=== PATIENT | female | born 1960 | race Caucasian/White ===

== ENCOUNTER 2016-08-06 16:39 | Emergency (ER) | payer MEDICAID, MEDICARE ==
[~2016-08-06] VITALS: Ht 162.6 cm; Wt 81.6 kg
[2016-08-06] MEDS ORDERED: AMMONIA AROMATIC 15% INHALANT AMPUL. ONE (16:45)
[2016-08-06 17:27] LABS: BASO # 0.1 x10^3/uL (0.0-0.2); BASO % 1 % (0-3); EOS % 2 % (0-3); HEMATOCRIT 35.5 % (36.0-47.0); HEMOGLOBIN 11.9 g/dL (12.0-15.5); LYMPH % 33 % (24-48); MEAN CORPUSCULAR HEMOGLOBIN 30 pg (25-35); MEAN CORPUSCULAR HGB CONC 34 g/dL (31-37); MEAN CORPUSCULAR VOLUME 88 fL (79-100); MONO % 5 % (0-9); NEUT % 59 % (31-73); PLATELET COUNT 161 x10^3/uL (140-400); RED BLOOD COUNT 4.01 x10^6/uL (3.50-5.40); RED CELL DISTRIBUTION WIDTH 14.5 % (11.5-14.5); WHITE BLOOD COUNT 6.2 x10^3/uL (4.0-11.0)
[2016-08-06 17:46] LABS: CALCIUM 9.5 mg/dL (8.5-10.1); GFR 57.6; POTASSIUM 3.6 mmol/L (3.5-5.1)
[2016-08-06 17:52] LABS: ALBUMIN 3.7 g/dL (3.4-5.0); ALBUMIN/GLOBULIN RATIO 1.4 (1.0-1.7); TOTAL BILIRUBIN 0.2 mg/dL (0.2-1.0); TOTAL PROTEIN 6.4 g/dL (6.4-8.2)
[2016-08-06] MEDS ORDERED: ACETAMINOPHEN 325 MG TABLET. PO ONE (18:30)
--- NOTE | 2016-08-06 18:35 | ED.ADGEN ---
Past Medical History Past Medical History: Anxiety, Arthritis, Depression, High Cholesterol, Hypertension, Other Additional Past Medical Histor: psuedo seizures, sleep apnea, PTSD, RLS, esophageal rupture, Past Surgical History: Appendectomy, Cholecystectomy, , Hysterectomy, Tonsillectomy, Other Additional Past Surgical Histo: fundaplication Alcohol Use: None Drug Use: None Adult General Chief Complaint Chief Complaint: SEIZURE HPI HPI Patient is a 56 year old female with history of pseudoseizures, PTSD, anxiety depression and GERD who presents with seizure-like activity. Reportedly, the patient had been attending the of her nephew in the overdose. Patient was very upset and confronted the family members father an argument ensued. At which time, the patient began to have a seizure-like activity ensued. Patient has interrupted staring and shaking spells true which she is awake and can talk. EMS was contacted and witnessed the spells, but patient was given an milligrams of intranasal and 10 mg of IV Versed for an unknown reason. On ED arrival, the patient somnolent with sonorous breathing, but can interrupt breathing pattern to answer questions. Patient was otherwise alert and oriented 3. No report of head injury, oral laceration, bladder incontinence or postictal period. Patient's accompanied at bedside by her spouse release information. He states she is been worked up extensively by a neurologist in does not have a diagnosis of seizures. Patient is currently visiting from out out of town. Review of Systems Review of Systems ROS as per HPI. ROS limited by the patients presentation. Current Medications Current Medications Current Medications Medications (Trade) Dose Ordered Sig/Leatha Start Time Stop Time Status Last Admin Dose Admin Acetaminophen (Tylenol) 650 mg 1X ONCE 08/06/16 18:30 08/06/16 18:31 DC 08/06/16 18:34 650 MG Ammonia (Aromatic Spirit) (Amoply) 1 each STK-MED ONCE 08/06/16 16:45 08/06/16 16:46 DC Allergies Allergies Allergies Coded Allergies Type Severity Reaction Last Updated Verified Estrogens Allergy Severe LOSS OF VISION 08/06/16 Yes Latex, Natural Rubber Allergy Intermediate RASH 08/06/16 Yes amoxicillin Allergy Intermediate RASH/VOMITING 08/06/16 Yes clarithromycin Allergy Intermediate rash 08/06/16 Yes clavulanic acid Allergy Intermediate RASH/VOMITING 08/06/16 Yes levofloxacin Allergy Intermediate rash 08/06/16 Yes morphine Allergy Intermediate rash 08/06/16 Yes paroxetine Allergy Intermediate RASH/VOMITING 08/06/16 Yes iron Adverse Reaction Mild ringing in ears 08/06/16 Yes labetalol Adverse Reaction Mild itching 08/06/16 Yes quinine Adverse Reaction Mild diarrhea 08/06/16 Yes Physical Exam Physical Exam Constitutional: Well developed, well nourished, mildly obtunded, sonorous breathing and some respond to verbal command. HENT: Normocephalic, atraumatic, bilateral external ears normal, oropharynx moist. Eyes: PERRLA, EOMI, conjunctiva normal. Neck: Normal range of motion, no tenderness. Cardiovascular:Heart rate regular rhythm, no murmur. Lungs & Thorax: Bilateral breath sounds clear to auscultation. Abdomen: Bowel sounds normal, soft, no tenderness. Skin: Warm, dry. Back: No tenderness. Neurologic: Alert, alerts to verbal command, to verbal command, normal motor function, normal sensory function, no focal deficits noted. Psychologic: Affect, flat. Current Patient Data Vital Signs Vital Signs Date Time Temp Pulse Resp B/P (MAP) Pulse Ox O2 Delivery O2 Flow Rate FiO2 08/06/16 18:16 92 20 134/67 (89) 95 Room Air 08/06/16 16:54 97.5 97.5 Lab Values Laboratory Tests Test 08/06/16 17:20 White Blood Count 6.2 x10^3/uL (4.0-11.0) Red Blood Count 4.01 x10^6/uL (3.50-5.40) Hemoglobin 11.9 g/dL (12.0-15.5) L Hematocrit 35.5 % (36.0-47.0) L Mean Corpuscular Volume 88 fL (79-100) Mean Corpuscular Hemoglobin 30 pg (25-35) Mean Corpuscular Hemoglobin Concent 34 g/dL (31-37) Red Cell Distribution Width 14.5 % (11.5-14.5) Platelet Count 161 x10^3/uL (140-400) Neutrophils (%) (Auto) 59 % (31-73) Lymphocytes (%) (Auto) 33 % (24-48) Monocytes (%) (Auto) 5 % (0-9) Eosinophils (%) (Auto) 2 % (0-3) Basophils (%) (Auto) 1 % (0-3) Neutrophils # (Auto) 3.7 x10^3uL (1.8-7.7) Lymphocytes # (Auto) 2.0 x10^3/uL (1.0-4.8) Monocytes # (Auto) 0.3 x10^3/uL (0.0-1.1) Eosinophils # (Auto) 0.1 x10^3/uL (0.0-0.7) Basophils # (Auto) 0.1 x10^3/uL (0.0-0.2) Sodium Level 142 mmol/L (136-145) Potassium Level 3.6 mmol/L (3.5-5.1) Chloride Level 105 mmol/L (98-107) Carbon Dioxide Level 22 mmol/L (21-32) Anion Gap 15 (6-14) H Blood Urea Nitrogen 9 mg/dL (7-20) Creatinine 1.0 mg/dL (0.6-1.0) Estimated GFR (Cockcroft-Gault) 57.6 BUN/Creatinine Ratio 9 (6-20) Glucose Level 120 mg/dL (70-99) H Calcium Level 9.5 mg/dL (8.5-10.1) Total Bilirubin 0.2 mg/dL (0.2-1.0) Aspartate Amino Transferase (AST) 20 U/L (15-37) Alanine Aminotransferase (ALT) 19 U/L (14-59) Alkaline Phosphatase 57 U/L (46-116) Total Protein 6.4 g/dL (6.4-8.2) Albumin 3.7 g/dL (3.4-5.0) Albumin/Globulin Ratio 1.4 (1.0-1.7) Laboratory Tests 08/06/16 17:20 Laboratory Tests 08/06/16 17:20 EKG EKG [] Radiology/Procedures Radiology/Procedures [] Course & Med Decision Making Course & Med Decision Making Pertinent Labs and Imaging studies reviewed. (See chart for details) [Patient observed until symptoms improved and effects of Versed wore off. She was instructed to go home and rest and avoid stressful activity. PCP follow-up recommended. Return precautions reviewed.] Dragon Disclaimer Dragon Disclaimer This electronic medical record was generated, in whole or in part, using a voice recognition dictation system. NEW ALVARADO DO Aug 06, 2016 18:35
[2016-08-06 19:44] VITALS: BP 104/62
== END 2016-08-06 19:59 | disposition home or self-care (01) ==
LOC: ER 16:39
DX: R56.9 Unspecified convulsions (principal); E78.00 Pure hypercholesterolemia, unspecified; F43.10 Post-traumatic stress disorder, unspecified; G25.81 Restless legs syndrome; G47.30 Sleep apnea, unspecified; I10 Essential (primary) hypertension; F32.9 Major depressive disorder, single episode, unspecified; M19.90 Unspecified osteoarthritis, unspecified site; F41.9 Anxiety disorder, unspecified; Z90.49 Acquired absence of other specified parts of digestive tract; Z90.710 Acquired absence of both cervix and uterus; Z98.890 Other specified postprocedural states; Z88.8 Allergy status to other drugs, medicaments and biological substances; Z88.1 Allergy status to other antibiotic agents; Z91.040 Latex allergy status; Z88.5 Allergy status to narcotic agent
CPT/HCPCS: 36415; 80053; 85027; 99284

== ENCOUNTER → 2017-01-08 | Day surgery (SDC) | payer MEDICARE ==
[~2017-01-08] MED LIST: IV RINGERS,LACTATED 1000ML 1,000 ML IV; LIDOCAINE 1% PF 2 ML VIAL. ID; ONDANSETRON PF 4 MG/2 ML VIAL. IV; PROCHLORPERAZINE 10 MG/2 ML VIAL. IV; fentaNYL PF VIAL 100 MCG/2 ML VIAL IV
[2017-01-08] MEDS: HYDROcodone/APAP 10/325 1 TAB TABLET PO (08:03)
== END | disposition home or self-care (01) ==
LOC: ENDOS 07:19
DX: K22.2 Esophageal obstruction (principal); E78.00 Pure hypercholesterolemia, unspecified; I10 Essential (primary) hypertension; E66.9 Obesity, unspecified; F41.9 Anxiety disorder, unspecified; F32.9 Major depressive disorder, single episode, unspecified; Z86.73 Personal history of transient ischemic attack (TIA), and cerebral infarction without residual deficits; Z86.69 Personal history of other diseases of the nervous system and sense organs; Z90.49 Acquired absence of other specified parts of digestive tract; Z90.710 Acquired absence of both cervix and uterus; Z87.39 Personal history of other diseases of the musculoskeletal system and connective tissue; Z86.14 Personal history of Methicillin resistant Staphylococcus aureus infection; Z88.6 Allergy status to analgesic agent; Z88.1 Allergy status to other antibiotic agents; Z91.040 Latex allergy status; Z91.048 Other nonmedicinal substance allergy status
CPT/HCPCS: 43760; 99211

== ENCOUNTER 2017-01-22 11:11 | Inpatient (IN) | payer MEDICARE ==
[~2017-01-22] VITALS: Ht 162.6 cm; Wt 76.9 kg
[~2017-01-22 11:11] MED LIST changes: +ALPR0.5T PO; +ASPI-482 PO; +HYDR-2766 PO; -IV RINGERS,LACTATED 1000ML 1,000 ML IV; -LIDOCAINE 1% PF 2 ML VIAL. ID; +LINA290C PO; +LISI10TA2 PO; +METO25TA4 PO; -ONDANSETRON PF 4 MG/2 ML VIAL. IV; +OXYC-328 PO; +PANT40TA3 PO; -PROCHLORPERAZINE 10 MG/2 ML VIAL. IV; +ROPI1TAB PO; +SIMV40TA PO; +SUCR1TAB35 PO; +TRAZ300T2 PO; +VENL150C PO; +VENL75CA PO; +ZOLP10TA PO; -fentaNYL PF VIAL 100 MCG/2 ML VIAL IV
[2017-01-22] MEDS ORDERED: MORPHINE SULFATE 4 MG/ML DISP.SYRIN. IV/SQ PRN (12:00)
[2017-01-22] MEDS ORDERED: PROMETHAZINE 12.5 MG in IV DEXTROSE 5% 50 ML IV PRN (12:00)
[2017-01-22] MEDS ORDERED: IV NORMAL SALINE 1000ML BAG 1,000 ML IV SCH (12:00)
--- NOTE | 2017-01-22 12:10 | PHYS DOC ---
Past Medical History Past Medical History: Anxiety, Arthritis, Depression, High Cholesterol, Hypertension, Other Additional Past Medical Histor: psuedo seizures, sleep apnea, PTSD, RLS, esophageal rupture, Past Surgical History: Appendectomy, Cholecystectomy, , Hysterectomy, Tonsillectomy, Other Additional Past Surgical Histo: fundaplication GASTRIC TUBE Alcohol Use: Rarely Drug Use: None Adult General Chief Complaint Chief Complaint: OTHER COMPLAINTS HPI HPI Patient is a 56 year old female who presents with her PEG tube. She states she has a history gastroparesis and uses a sedimentation rate off the extra fluid. She states Friday night she started getting sharp pains around her PEG tube and radiated up into her chest and went to her back. She states the pain now she is located around her PEG tube site. She states it was replaced about 2 weeks ago at the wrong size and since then material is been leaking around it. She states is tender around the site. Review of Systems Review of Systems Constitutional: Denies fever or chills [] Eyes: Denies change in visual acuity, redness, or eye pain [] HENT: Denies nasal congestion or sore throat [] Respiratory: Denies cough or shortness of breath [] Cardiovascular: No additional information not addressed in HPI [] GI: Positive for abdominal pain, nausea, Denies vomiting, bloody stools or diarrhea [] : Denies dysuria or hematuria [] Musculoskeletal: Denies back pain or joint pain [] Integument: Denies rash or skin lesions [] Neurologic: Denies headache, focal weakness or sensory changes [] Endocrine: Denies polyuria or polydipsia [] All other systems were reviewed and found to be within normal limits, except as documented in this note. Current Medications Current Medications Current Medications Medications (Trade) Dose Ordered Sig/Leatha Start Time Stop Time Status Last Admin Dose Admin Fentanyl Citrate (Fentanyl 2ml Vial) 50 mcg PRN Q1HR PRN 01/22/17 15:00 01/23/17 14:59 Hydromorphone HCl (Dilaudid) 1 mg PRN Q15MIN PRN 01/22/17 13:15 01/23/17 13:14 01/22/17 14:21 1 MG Morphine Sulfate 4 mg PRN Q15MIN PRN 01/22/17 12:00 01/23/17 11:59 UNV Ondansetron HCl (Zofran) 4 mg PRN Q8HRS PRN 01/22/17 15:00 01/23/17 14:59 Promethazine HCl 12.5 mg/Dextrose 50.5 ml @ 151.5 mls/ hr PRN Q6HRS PRN 01/22/17 12:00 01/22/17 12:23 151.5 MLS/HR Sodium Chloride 1,000 ml @ 1,000 mls/hr Q1H 01/22/17 12:00 01/22/17 12:59 DC 01/22/17 12:22 1,000 MLS/HR Allergies Allergies Allergies Coded Allergies Type Severity Reaction Last Updated Verified Estrogens Allergy Severe LOSS OF VISION 08/06/16 Yes Latex, Natural Rubber Allergy Intermediate RASH 08/06/16 Yes clarithromycin Allergy Intermediate rash 08/06/16 Yes levofloxacin Allergy Intermediate rash 08/06/16 Yes morphine Allergy Intermediate rash 08/06/16 Yes paroxetine Allergy Intermediate RASH/VOMITING 08/06/16 Yes amoxicillin Adverse Reaction Intermediate VOMITING 11/08/16 Yes clavulanic acid Adverse Reaction Intermediate VOMITING 11/08/16 Yes iron Adverse Reaction Mild ringing in ears 08/06/16 Yes labetalol Adverse Reaction Mild itching 08/06/16 Yes quinine Adverse Reaction Mild diarrhea 08/06/16 Yes Physical Exam Physical Exam Constitutional: Well developed, well nourished, no acute distress, non-toxic appearance. [] HENT: Normocephalic, atraumatic, bilateral external ears normal, oropharynx moist, no oral exudates, nose normal. [] Eyes: PERRLA, EOMI, conjunctiva normal, no discharge. [] Neck: Normal range of motion, no tenderness, supple, no stridor. [] Cardiovascular:Heart rate regular rhythm, no murmur [] Lungs & Thorax: Bilateral breath sounds clear to auscultation [] Abdomen: Bowel sounds normal, soft, tender palpation around the PEG tube site with mild erythema, no masses, no pulsatile masses. [] Skin: Warm, dry, no erythema, no rash. [] Back: No tenderness, no CVA tenderness. [] Extremities: No tenderness, no cyanosis, no clubbing, ROM intact, no edema. [] Neurologic: Alert and oriented X 3, normal motor function, normal sensory function, no focal deficits noted. [] Psychologic: Affect normal, judgement normal, mood normal. [] Current Patient Data Vital Signs Vital Signs Date Time Temp Pulse Resp B/P (MAP) Pulse Ox O2 Delivery O2 Flow Rate FiO2 01/22/17 14:00 66 121/64 (83) 95 Room Air 01/22/17 11:26 97.8 20 97.8 Lab Values Laboratory Tests Test 01/22/17 11:26 01/22/17 11:55 Urine Collection Type Void Urine Color Yellow Urine Clarity Clear Urine pH 6.0 Urine Specific [place] 1.010 Urine Protein Negative mg/dL (NEG-TRACE) Urine Glucose (UA) Negative mg/dL (NEG) Urine Ketones (Stick) Negative mg/dL (NEG) Urine Blood Negative (NEG) Urine Nitrite Negative (NEG) Urine Bilirubin Negative (NEG) Urine Urobilinogen Dipstick 1.0 mg/dL (0.2 mg/dL) Urine Leukocyte Esterase Moderate (NEG) Urine RBC Occ /HPF (0-2) Urine WBC 11-20 /HPF (0-4) Urine Squamous Epithelial Cells Few /LPF Urine Bacteria Moderate /HPF (0-FEW) Urine Opiates Screen Pos (NEG) Urine Methadone Screen Neg (NEG) Urine Barbiturates Neg (NEG) Urine Phencyclidine Screen Neg (NEG) Urine Amphetamine/Methamphetamine Neg (NEG) Urine Benzodiazepines Screen Pos (NEG) Urine Cocaine Screen Neg (NEG) Urine Cannabinoids Screen Pos (NEG) Urine Ethyl Alcohol Neg (NEG) White Blood Count 8.8 x10^3/uL (4.0-11.0) Red Blood Count 4.06 x10^6/uL (3.50-5.40) Hemoglobin 11.9 g/dL (12.0-15.5) L Hematocrit 35.3 % (36.0-47.0) L Mean Corpuscular Volume 87 fL (79-100) Mean Corpuscular Hemoglobin 29 pg (25-35) Mean Corpuscular Hemoglobin Concent 34 g/dL (31-37) Red Cell Distribution Width 13.8 % (11.5-14.5) Platelet Count 171 x10^3/uL (140-400) Neutrophils (%) (Auto) 71 % (31-73) Lymphocytes (%) (Auto) 22 % (24-48) L Monocytes (%) (Auto) 5 % (0-9) Eosinophils (%) (Auto) 1 % (0-3) Basophils (%) (Auto) 1 % (0-3) Neutrophils # (Auto) 6.3 x10^3uL (1.8-7.7) Lymphocytes # (Auto) 1.9 x10^3/uL (1.0-4.8) Monocytes # (Auto) 0.5 x10^3/uL (0.0-1.1) Eosinophils # (Auto) 0.1 x10^3/uL (0.0-0.7) Basophils # (Auto) 0.0 x10^3/uL (0.0-0.2) Prothrombin Time 12.6 SEC (11.7-14.0) Prothrombin Time INR 1.0 (0.8-1.1) PTT 20 SEC (24-38) L Sodium Level 140 mmol/L (136-145) Potassium Level 3.7 mmol/L (3.5-5.1) Chloride Level 104 mmol/L (98-107) Carbon Dioxide Level 28 mmol/L (21-32) Anion Gap 8 (6-14) Blood Urea Nitrogen 10 mg/dL (7-20) Creatinine 0.6 mg/dL (0.6-1.0) Estimated GFR (Cockcroft-Gault) 103.8 Glucose Level 110 mg/dL (70-99) H Calcium Level 9.2 mg/dL (8.5-10.1) Total Bilirubin 0.3 mg/dL (0.2-1.0) Direct Bilirubin 0.1 mg/dL (0.0-0.2) Aspartate Amino Transferase (AST) 19 U/L (15-37) Alanine Aminotransferase (ALT) 16 U/L (14-59) Alkaline Phosphatase 70 U/L (46-116) Creatine Kinase 69 U/L (26-192) Creatine Kinase MB (Mass) < 0.5 ng/mL (0.0-3.6) Creatine Kinase MB Relative Index % (0-4) Troponin I Quantitative < 0.017 ng/mL (0.000-0.055) Total Protein 7.1 g/dL (6.4-8.2) Albumin 3.3 g/dL (3.4-5.0) L Lipase 74 U/L (73-393) Laboratory Tests 01/22/17 11:55 Laboratory Tests 01/22/17 11:55 EKG EKG EKG shows sinus rhythm with rate of [address] elevations or concerning T-wave inversions, normal axis, QTC 467 will sinus, as interpreted by me. Radiology/Procedures Radiology/Procedures Acute abdominal series does not show any acute abnormalities as read per radiology. Impressions: Abdominal pain around PEG tube Abdominal pain that radiated up into chest-resolved Course & Med Decision Making Course & Med Decision Making Pertinent Labs and Imaging studies reviewed. (See chart for details) She had pain that radiated up into her back that started in her abdomen. This pain has resolved. On her acute abdominal series, EKG and her labs did not show any acute abnormality's. I spoke with Camille with Dr. Maravilla regarding the need that her PEG tube will likely need to be changed and she's having pain around this. She being admitted to the hospitalist this time in stable condition. Dragon Disclaimer Dragon Disclaimer This electronic medical record was generated, in whole or in part, using a voice recognition dictation system. Departure Departure Impression: Primary Impression: Abdominal pain Disposition: ADMITTED INPATIENT Admitting Physician: Other Condition: STABLE Referrals: NON,STAFF (PCP) MELLO RICE MD Jan 22, 2017 12:10
[2017-01-22 12:11] LABS: BASO % 1 % (0-3); EOS % 1 % (0-3); HEMATOCRIT 35.3 % (36.0-47.0); HEMOGLOBIN 11.9 g/dL (12.0-15.5); LYMPH # 1.9 x10^3/uL (1.0-4.8); LYMPH % 22 % (24-48); MEAN CORPUSCULAR HEMOGLOBIN 29 pg (25-35); MEAN CORPUSCULAR HGB CONC 34 g/dL (31-37); MEAN CORPUSCULAR VOLUME 87 fL (79-100); MONO % 5 % (0-9); NEUT % 71 % (31-73); PLATELET COUNT 171 x10^3/uL (140-400); RED BLOOD COUNT 4.06 x10^6/uL (3.50-5.40); RED CELL DISTRIBUTION WIDTH 13.8 % (11.5-14.5); WHITE BLOOD COUNT 8.8 x10^3/uL (4.0-11.0)
[2017-01-22 12:13] LABS: BILIRUBIN,URINE NEGATIVE (NEG); GLUCOSE,URINE NEGATIVE (NEG); NITRITE,URINE NEGATIVE (NEG); PROTEIN,URINE NEGATIVE (NEG-TRACE)
[2017-01-22 12:20] LABS: PROTHROMBIN TIME PATIENT 12.6 SEC (11.7-14.0)
[2017-01-22 12:23] LABS: CALCIUM 9.2 mg/dL (8.5-10.1); CREATININE 0.6 mg/dL (0.6-1.0); GFR 103.8; POTASSIUM 3.7 mmol/L (3.5-5.1)
[2017-01-22 12:24] LABS: BACTERIA,URINE MODERATE /HPF (0-FEW); RBC,URINE OCC /HPF (0-2); SQUAMOUS EPITHELIAL CELL,UR FEW /LPF
[2017-01-22 12:27] LABS: BARBITURATES NEG (NEG); BENZODIAZEPINES POS (NEG); CANNABINOIDS POS (NEG); COCAINE NEG (NEG); METHADONE NEG (NEG); OPIATES POS (NEG); PHENCYCLIDINE NEG (NEG)
[2017-01-22 12:29] LABS: ALBUMIN 3.3 g/dL (3.4-5.0); DIRECT BILIRUBIN 0.1 mg/dL (0.0-0.2); TOTAL BILIRUBIN 0.3 mg/dL (0.2-1.0); TOTAL PROTEIN 7.1 g/dL (6.4-8.2)
[2017-01-22] MEDS ORDERED: fentaNYL PF VIAL 100 MCG/2 ML VIAL IV PRN ×2 (12:30→15:00)
[2017-01-22 12:34] LABS: CKMB MASS < 0.5 ng/mL (0.0-3.6); CREATINE KINASE 69 U/L (26-192)
--- NOTE | 2017-01-22 12:44 | EKG ---
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
[2017-01-22] MEDS: HYDROmorphone 2 MG/ML VIAL IV/SQ PRN ×3 (13:28→15:02)
--- NOTE | 2017-01-22 15:46 | RAD ---
Abdomen series with chest, 3 views, 01/22/2017: History: Abdominal pain A tube overlying the left upper quadrant is reportedly a gastrostomy tube. Gas is present in large and small bowel in a nonspecific pattern. No free air is seen in the abdomen. There is no evidence of organomegaly. Surgical clips are present in the abdomen and pelvis. There are scattered degenerative changes in the spine. There is mild chronic elevation of the right hemidiaphragm. The heart size and pulmonary vascularity are normal. No pulmonary infiltrates are seen. There is no evidence of pleural fluid. A right shoulder prosthesis is in place. IMPRESSION: No acute abdominal abnormality is detected.
--- NOTE | 2017-01-22 15:47 | PDOC2 ---
GI CONSULT Reason For Consult: Abd pain HPI: HPI: 56 y/o female w/ chronic GI issues. H/o abd pain, n/v, and OIC. S/p Adrianne fundoplication in 2008 (for uncontrolled reflux, Razo's esophagus , and hiatal hernia), then gastric perforation s/p repair/pyloroplasty in 2010 PEG placed in 2014 for decompression. Says usually has 20Fr w/ 20mm balloon. PEG replaced by Dr. Tian on 01/08/17; size was 20Fr w/ 6mm balloon. Since then has had issues w/ food/drink leaking around PEG site. Currently takes Marinol, Protonix BID, Linzess 290mcg QD. (Note Reglan, Carafate, and Zofran ineffective.) Fibromyalgia on hydrocodone QID + Percocet QHS. Last EGD and colonoscopy 04/2016 at [facility]: EGD - evidence of fundoplication, pyloroplasty, PEG, no abnormality. Colon - two cecal polyps ( no path available). Additional 'scopes per GI consult 11/08/16. Had GES in 12/2016 w/ T1/2 time 47 min. We saw her in the hospital in 10/2016; at that time she had concern for pinworm infection around her PEG w/ pain and drainage. CT was unremarkable. Was seen by ID, no treatment indicated. Since then, has been treated w/ atbx (says 4 rounds, last Bactrim - finished 2 weeks ago) for MRSA infection (can document + culture) related to PEG site. Feels better on atbx. Since Friday, has had terrible pain around PEG w/ green drainage. Says never had pain like this before. Worse w/ movement and deep breathing. Fever up to 103 at home w/ chills and sweats, has noted a "knot" under PEG. Ate a [employer] burrito this morning, says some of her coke drained out around PEG. Called our office re: terrible pain, says she was told to come straight to the ER. PMH: PMH: Razo's/GERD, chronic abd pain, IBS, colon polyps, OIC, gastroparesis ( chronic n/v), hemorrhoids anxiety/depression, CVA, fibromyalgia, HTN, HLD, insomnia, OA, REAL, restless leg syndrome Adrianne fundoplication, gastric perforation w/ repair/pyloroplasty, PEG and J tube placement, appendectomy, cholecystectomy, hysterectomy, tonsillectomy, right shoulder replacement, FH: Family History: Cancer, CAD, CVA, Hypertension Social History: Smoke: No ROS: GEN: +fevers +chills +sweats HEENT: Denies blurred vision, sore throat CV: Denies chest pain RESP: Denies shortness of air, cough GI: Per HPI : Denies hematuria, dysuria ENDO: Denies weight changes NEURO: Denies confusion, dizziness MSK: Denies weakness, joint pain/swelling SKIN: Denies jaundice, pruritus Vitals: Vitals: Vital Signs Date Time Temp Pulse Resp B/P (MAP) Pulse Ox O2 Delivery O2 Flow Rate FiO2 01/22/17 14:00 66 121/64 (83) 95 Room Air 01/22/17 11:26 97.8 20 97.8 Labs: Labs: Laboratory Tests Test 01/22/17 11:26 01/22/17 11:55 Urine Collection Type Void Urine Color Yellow Urine Clarity Clear Urine pH 6.0 Urine Specific [place] 1.010 Urine Protein Negative mg/dL (NEG-TRACE) Urine Glucose (UA) Negative mg/dL (NEG) Urine Ketones (Stick) Negative mg/dL (NEG) Urine Blood Negative (NEG) Urine Nitrite Negative (NEG) Urine Bilirubin Negative (NEG) Urine Urobilinogen Dipstick 1.0 mg/dL (0.2 mg/dL) Urine Leukocyte Esterase Moderate (NEG) Urine RBC Occ /HPF (0-2) Urine WBC 11-20 /HPF (0-4) Urine Squamous Epithelial Cells Few /LPF Urine Bacteria Moderate /HPF (0-FEW) Urine Opiates Screen Pos (NEG) Urine Methadone Screen Neg (NEG) Urine Barbiturates Neg (NEG) Urine Phencyclidine Screen Neg (NEG) Urine Amphetamine/Methamphetamine Neg (NEG) Urine Benzodiazepines Screen Pos (NEG) Urine Cocaine Screen Neg (NEG) Urine Cannabinoids Screen Pos (NEG) Urine Ethyl Alcohol Neg (NEG) White Blood Count 8.8 x10^3/uL (4.0-11.0) Red Blood Count 4.06 x10^6/uL (3.50-5.40) Hemoglobin 11.9 g/dL (12.0-15.5) Hematocrit 35.3 % (36.0-47.0) Mean Corpuscular Volume 87 fL (79-100) Mean Corpuscular Hemoglobin 29 pg (25-35) Mean Corpuscular Hemoglobin Concent 34 g/dL (31-37) Red Cell Distribution Width 13.8 % (11.5-14.5) Platelet Count 171 x10^3/uL (140-400) Neutrophils (%) (Auto) 71 % (31-73) Lymphocytes (%) (Auto) 22 % (24-48) Monocytes (%) (Auto) 5 % (0-9) Eosinophils (%) (Auto) 1 % (0-3) Basophils (%) (Auto) 1 % (0-3) Neutrophils # (Auto) 6.3 x10^3uL (1.8-7.7) Lymphocytes # (Auto) 1.9 x10^3/uL (1.0-4.8) Monocytes # (Auto) 0.5 x10^3/uL (0.0-1.1) Eosinophils # (Auto) 0.1 x10^3/uL (0.0-0.7) Basophils # (Auto) 0.0 x10^3/uL (0.0-0.2) Prothrombin Time 12.6 SEC (11.7-14.0) Prothromb Time International Ratio 1.0 (0.8-1.1) Activated Partial Thromboplast Time 20 SEC (24-38) Sodium Level 140 mmol/L (136-145) Potassium Level 3.7 mmol/L (3.5-5.1) Chloride Level 104 mmol/L (98-107) Carbon Dioxide Level 28 mmol/L (21-32) Anion Gap 8 (6-14) Blood Urea Nitrogen 10 mg/dL (7-20) Creatinine 0.6 mg/dL (0.6-1.0) Estimated GFR (Cockcroft-Gault) 103.8 Glucose Level 110 mg/dL (70-99) Calcium Level 9.2 mg/dL (8.5-10.1) Total Bilirubin 0.3 mg/dL (0.2-1.0) Direct Bilirubin 0.1 mg/dL (0.0-0.2) Aspartate Amino Transf (AST/SGOT) 19 U/L (15-37) Alanine Aminotransferase (ALT/SGPT) 16 U/L (14-59) Alkaline Phosphatase 70 U/L (46-116) Creatine Kinase 69 U/L (26-192) Creatine Kinase MB (Mass) < 0.5 ng/mL (0.0-3.6) Creatine Kinase MB Relative Index % (0-4) Troponin I Quantitative < 0.017 ng/mL (0.000-0.055) Total Protein 7.1 g/dL (6.4-8.2) Albumin 3.3 g/dL (3.4-5.0) Lipase 74 U/L (73-393) Allergies: Coded Allergies: Estrogens (Verified Allergy, Severe, LOSS OF VISION, 08/06/16) Latex, Natural Rubber (Verified Allergy, Intermediate, RASH, 08/06/16) clarithromycin (Verified Allergy, Intermediate, rash, 08/06/16) levofloxacin (Verified Allergy, Intermediate, rash, 08/06/16) morphine (Verified Allergy, Intermediate, rash, 08/06/16) paroxetine (Verified Allergy, Intermediate, RASH/VOMITING, 08/06/16) amoxicillin (Verified Adverse Reaction, Intermediate, VOMITING, 11/08/16) clavulanic acid (Verified Adverse Reaction, Intermediate, VOMITING, ) iron (Verified Adverse Reaction, Mild, ringing in ears, 08/06/16) labetalol (Verified Adverse Reaction, Mild, itching, 08/06/16) quinine (Verified Adverse Reaction, Mild, diarrhea, 08/06/16) Medications: Current Medications Medications (Trade) Dose Ordered Sig/Leatha Route PRN Reason Start Time Stop Time Status Last Admin Dose Admin Sodium Chloride 1,000 ml @ 1,000 mls/hr Q1H IV 01/22/17 12:00 01/22/17 12:59 DC 01/22/17 12:22 Promethazine HCl 12.5 mg/Dextrose 50.5 ml @ 151.5 mls/ hr PRN Q6HRS PRN IV NAUSEA/VOMITING 01/22/17 12:00 01/22/17 12:23 Fentanyl Citrate (Fentanyl 2ml Vial) 50 mcg PRN Q15MIN PRN IV PAIN GREATER THAN 3/10 01/22/17 12:30 01/22/17 13:09 DC 01/22/17 12:48 Hydromorphone HCl (Dilaudid) 1 mg PRN Q15MIN PRN IV/SQ PAIN GREATER THAN 3/10 01/22/17 13:15 01/23/17 13:14 01/22/17 15:02 Imaging: Imaging: Acute Abd Series 01/22/17 IMPRESSION: No acute abdominal abnormality is detected. PE: GEN: moaning in pain HEENT: atraumatic, eyes closed LUNGS: CTAB HEART: RRR ABD: BS+, clutching PEG tube, tender around PEG, minimal light yellowing drainage on gauze under bumper (a little loose), did not appreciate a "knot" EXTREMITY: No edema SKIN: No erythema or warmth around PEG NEURO/PSYCH: A & O 3 A/P: A/P: Chronic abd pain, n/v -complicated surgical history w/ Adrianne fundoplication, gastric perf w/ pyloroplasty -last EGD/colon @ [facility] 04/2016, normal GES this month -on Marinol, Protonix PEG in place w/ abd pain, fever, drainage, h/o MRSA infection -uses for decompression -replaced 01/08/17: 20 Fr, 6mm balloon ---> she says wrong size, has been leaking -has taken 4 rounds of atbx, last Bactrim 2 weeks ago Fibromyalgia -on hydrocodone and Percocet OIC -on Linzess, ?has tried Relistor -- Reviewed w/ Dr. Campos - Dr. Tian to see tomorrow. Will check re: availability of the PEG tube/size she requests. D/w office - w/ normal GES, recurrent admissions, and MRSA infection... ?remove PEG *Note the patient has called our office twice since arriving at [facility]. ?culture drainage AMAURY WANG Jan 22, 2017 15:47
[2017-01-22 16:10] VITALS: BP 125/51
[2017-01-22] MEDS ORDERED: oxyCODONE IR 5 MG TABLET PO PRN (16:15)
[2017-01-22] MEDS: HYDROmorphone 2 MG/ML VIAL IVP PRN ×2 (17:04→21:20)
[2017-01-22] MEDS: ONDANSETRON PF 4 MG/2 ML VIAL. IV PRN (17:15)
[2017-01-22] MEDS ORDERED: DRON5CAP PO (17:46)
[2017-01-22] MEDS ORDERED: diphenhydrAMINE HCL 25 MG CAPSULE PO PRN (18:15)
[2017-01-22] MEDS ORDERED: ALPRAZolam 0.5 MG TABLET PO PRN (18:30)
--- NOTE | 2017-01-22 19:23 | HP ---
ADMIT DATE: 01/22/2017 CHIEF COMPLAINT: Abdominal pain. HISTORY OF PRESENT ILLNESS: The patient is a 56-year-old woman with longstanding history of GI problems including a Adrianne fundoplication gastroparesis, status post PEG placement for pressure relief who had her PEG replaced routinely 2 weeks ago. Apparently, she did fairly well until about 3 days ago when she started significant pain around the PICC site as well as a leakage from it. She feels that the site is infected and very painful. Dr. Tian is scheduled to see her tomorrow. She relates that she had a fever to 103 and none recorded here. Denies any nausea, vomiting or other symptoms. PAST MEDICAL AND SURGICAL HISTORY: Razo's, GERD, chronic abdominal pain, gastroparesis, status post Adrianne fundoplication, gastric perforation with repair and pyloroplasty, PEG and J-tube placement. She is also status post appendectomy, cholecystectomy, hysterectomy as well as tonsillectomy and right shoulder replacement, also anxiety, depression, fibromyalgia, chronic nausea, CVA, osteoarthritis, obstructive sleep apnea. FAMILY HISTORY: Positive for colon cancer in uncle and paternal grandfather, ovarian cancer and maternal grandmother and breast cancer in mother and aunt. SOCIAL HISTORY: Denies any smoking or other drugs. ALLERGIES: Multiple including ESTROGEN, LATEX, NATURAL RUBBER, AMOXICILLIN, CLARITHROMYCIN, CLAVULANIC ACID, IRON, LABETALOL, LEVOFLOXACIN, MORPHINE, PAROXETINE, AND QUININE. MEDICATIONS: MAR reconciled with home medications. REVIEW OF SYSTEMS: Positive as per HPI. Rest of organ system review obtained and found negative. PHYSICAL EXAMINATION: VITAL SIGNS: From today show a blood pressure of 125/51, heart rate of 86, respiratory rate at 18. She is afebrile. GENERAL: This is a 56-year-old well-nourished woman, awake, alert, in no acute distress. HEENT: Shows no scleral icterus. NECK: Supple. LUNGS: Clear. HEART: Regular rate and rhythm. ABDOMEN: Has positive bowel sounds, soft, tenderness to palpation around the PEG tube. Site appears clean. No drainage appreciated. EXTREMITIES: Show no edema. SKIN: Warm, soft and dry. NEUROLOGIC: She appears grossly intact. LABORATORY DATA: CBC with a WBC of 8.8, hemoglobin 11.9, platelets of 171. Chemistries with a BUN and creatinine of 10 and 0.6, normal electrolytes, normal LFTs, albumin at 3.6. Drug screen positive for opiates, benzos and cannabinoids. UA with 11-20 wbc's, moderate bacteria. ASSESSMENT AND PLAN: The patient is a 56-year-old woman with multiple gastrointestinal issues now with more pain as she feels that the percutaneous endoscopic gastrostomy tube does not have the right size balloon for her. Discussed with her that with frequent admissions and issues with her percutaneous endoscopic gastrostomy tube, consideration should be given for discontinuing tube and see how she does. Leave this decision and discussion to Gastroenterology. Dr. Tian will see the patient tomorrow. We will continue all her home medications including Marinol for the time being. She has tried multiple other antiemetics and they do not seem to work for her. We will continue all her other medications for anxiety, insomnia, fibromyalgia, and chronic pain as well. LEIA REIS MD DR: ALEC/nts JOB#: [id number] / [id number] VICTOR MANUEL
[2017-01-22] MEDS ORDERED: FLUCONAZOLE 100 MG TABLET. PO ONE (19:30)
[2017-01-22 19:55] VITALS: BP 95/56
[2017-01-22] MEDS: oxyCODONE/APAP 10/325 1 TAB TABLET PO PRN (20:06)
[2017-01-22] MEDS: PANTOPRAZOLE 40 MG TABLET.DR. PO SCH (20:06)
[2017-01-22] MEDS: VENLAFAXINE 75 MG TABLET. PO SCH (20:07)
[2017-01-22] MEDS: METOPROLOL TART IMMED RELEASE 25 MG TABLET. PO SCH (20:09)
[2017-01-22] MEDS ORDERED: FAMOTIDINE 20 MG/2 ML VIAL IVP SCH (21:00)
[2017-01-22] MEDS ORDERED: SIMVASTATIN 40 MG TABLET. PO SCH (21:00)
[2017-01-22] MEDS ORDERED: ZOLPIDEM 5 MG TABLET. PO SCH (21:00)
[2017-01-22] MEDS: SUCRALFATE 1 GM TABLET. PO SCH (21:19)
[2017-01-22 23:45] VITALS: BP 91/49
[2017-01-23] MEDS: oxyCODONE/APAP 10/325 1 TAB TABLET PO PRN ×3 (00:23→13:16)
[2017-01-23] MEDS: HYDROmorphone 2 MG/ML VIAL IVP PRN ×2 (02:39→09:21)
[2017-01-23 03:44] VITALS: BP 93/47
[2017-01-23 04:36] LABS: BASO % 0 % (0-3); EOS % 3 % (0-3); HEMOGLOBIN 10.4 g/dL (12.0-15.5); LYMPH # 1.8 x10^3/uL (1.0-4.8); LYMPH % 33 % (24-48); MEAN CORPUSCULAR HEMOGLOBIN 29 pg (25-35); MEAN CORPUSCULAR HGB CONC 34 g/dL (31-37); MEAN CORPUSCULAR VOLUME 87 fL (79-100); MONO % 6 % (0-9); NEUT % 58 % (31-73); PLATELET COUNT 138 x10^3/uL (140-400); RED BLOOD COUNT 3.57 x10^6/uL (3.50-5.40); RED CELL DISTRIBUTION WIDTH 14.7 % (11.5-14.5); WHITE BLOOD COUNT 5.6 x10^3/uL (4.0-11.0)
[2017-01-23 04:51] LABS: CALCIUM 8.7 mg/dL (8.5-10.1); CREATININE 0.7 mg/dL (0.6-1.0); GFR 86.9; POTASSIUM 4.4 mmol/L (3.5-5.1)
[2017-01-23 06:59] VITALS: BP 118/41
[2017-01-23] MEDS ORDERED: LINACLOTIDE 145 MCG CAPSULE. PO SCH (07:00)
[2017-01-23] MEDS ORDERED: ASPIRIN ENTERIC COATED 81 MG TABLET.DR. PO SCH (08:00)
--- NOTE | 2017-01-23 08:59 | PDOC ---
PROGRESS NOTES Chief Complaint Chief Complaint acute on chronic abdominal pain s/p melvin UTI nausea, skin infection at PEG site, requests removal History of Present Illness History of Present Illness GI consult following, consider PEG removal she is having chronic problems s/p melvin, consult Dr. Garcia for his opinion on any way maybe improvement Vitals Vitals Vital Signs Date Time Temp Pulse Resp B/P (MAP) Pulse Ox O2 Delivery O2 Flow Rate FiO2 01/23/17 06:59 98.1 60 19 118/41 (66) 99 Room Air 98.1 Physical Exam General: Alert, Cooperative, No acute distress Heart: Regular rate Lungs: Clear, Crackles Abdomen: Normal bowel sounds, Other (tender near PEG, no rebound) Extremities: No clubbing Skin: No rashes, No breakdown Labs LABS Laboratory Tests Test 01/22/17 11:26 01/22/17 11:55 01/23/17 04:19 Urine Collection Type Void Urine Color Yellow Urine Clarity Clear Urine pH 6.0 Urine Specific [place] 1.010 Urine Protein Negative mg/dL (NEG-TRACE) Urine Glucose (UA) Negative mg/dL (NEG) Urine Ketones (Stick) Negative mg/dL (NEG) Urine Blood Negative (NEG) Urine Nitrite Negative (NEG) Urine Bilirubin Negative (NEG) Urine Urobilinogen Dipstick 1.0 mg/dL (0.2 mg/dL) Urine Leukocyte Esterase Moderate (NEG) Urine RBC Occ /HPF (0-2) Urine WBC 11-20 /HPF (0-4) Urine Squamous Epithelial Cells Few /LPF Urine Bacteria Moderate /HPF (0-FEW) Urine Opiates Screen Pos (NEG) Urine Methadone Screen Neg (NEG) Urine Barbiturates Neg (NEG) Urine Phencyclidine Screen Neg (NEG) Urine Amphetamine/Methamphetamine Neg (NEG) Urine Benzodiazepines Screen Pos (NEG) Urine Cocaine Screen Neg (NEG) Urine Cannabinoids Screen Pos (NEG) Urine Ethyl Alcohol Neg (NEG) White Blood Count 8.8 x10^3/uL (4.0-11.0) 5.6 x10^3/uL (4.0-11.0) Red Blood Count 4.06 x10^6/uL (3.50-5.40) 3.57 x10^6/uL (3.50-5.40) Hemoglobin 11.9 g/dL (12.0-15.5) 10.4 g/dL (12.0-15.5) Hematocrit 35.3 % (36.0-47.0) 31.0 % (36.0-47.0) Mean Corpuscular Volume 87 fL (79-100) 87 fL (79-100) Mean Corpuscular Hemoglobin 29 pg (25-35) 29 pg (25-35) Mean Corpuscular Hemoglobin Concent 34 g/dL (31-37) 34 g/dL (31-37) Red Cell Distribution Width 13.8 % (11.5-14.5) 14.7 % (11.5-14.5) Platelet Count 171 x10^3/uL (140-400) 138 x10^3/uL (140-400) Neutrophils (%) (Auto) 71 % (31-73) 58 % (31-73) Lymphocytes (%) (Auto) 22 % (24-48) 33 % (24-48) Monocytes (%) (Auto) 5 % (0-9) 6 % (0-9) Eosinophils (%) (Auto) 1 % (0-3) 3 % (0-3) Basophils (%) (Auto) 1 % (0-3) 0 % (0-3) Neutrophils # (Auto) 6.3 x10^3uL (1.8-7.7) 3.2 x10^3uL (1.8-7.7) Lymphocytes # (Auto) 1.9 x10^3/uL (1.0-4.8) 1.8 x10^3/uL (1.0-4.8) Monocytes # (Auto) 0.5 x10^3/uL (0.0-1.1) 0.3 x10^3/uL (0.0-1.1) Eosinophils # (Auto) 0.1 x10^3/uL (0.0-0.7) 0.1 x10^3/uL (0.0-0.7) Basophils # (Auto) 0.0 x10^3/uL (0.0-0.2) 0.0 x10^3/uL (0.0-0.2) Prothrombin Time 12.6 SEC (11.7-14.0) Prothromb Time International Ratio 1.0 (0.8-1.1) Activated Partial Thromboplast Time 20 SEC (24-38) Sodium Level 140 mmol/L (136-145) 144 mmol/L (136-145) Potassium Level 3.7 mmol/L (3.5-5.1) 4.4 mmol/L (3.5-5.1) Chloride Level 104 mmol/L (98-107) 110 mmol/L (98-107) Carbon Dioxide Level 28 mmol/L (21-32) 31 mmol/L (21-32) Anion Gap 8 (6-14) 3 (6-14) Blood Urea Nitrogen 10 mg/dL (7-20) 6 mg/dL (7-20) Creatinine 0.6 mg/dL (0.6-1.0) 0.7 mg/dL (0.6-1.0) Estimated GFR (Cockcroft-Gault) 103.8 86.9 Glucose Level 110 mg/dL (70-99) 88 mg/dL (70-99) Calcium Level 9.2 mg/dL (8.5-10.1) 8.7 mg/dL (8.5-10.1) Total Bilirubin 0.3 mg/dL (0.2-1.0) Direct Bilirubin 0.1 mg/dL (0.0-0.2) Aspartate Amino Transf (AST/SGOT) 19 U/L (15-37) Alanine Aminotransferase (ALT/SGPT) 16 U/L (14-59) Alkaline Phosphatase 70 U/L (46-116) Creatine Kinase 69 U/L (26-192) Creatine Kinase MB (Mass) < 0.5 ng/mL (0.0-3.6) Creatine Kinase MB Relative Index % (0-4) Troponin I Quantitative < 0.017 ng/mL (0.000-0.055) Total Protein 7.1 g/dL (6.4-8.2) Albumin 3.3 g/dL (3.4-5.0) Lipase 74 U/L (73-393) Review of Systems Review of Systems nausea, weakness abd pain Assessment and Plan Assessmemt and Plan Problems Medical Problems: (1) Abdominal pain Status: Acute Problems: Comment Review of Relevant I have reviewed the following items judi (where applicable) has been applied. Labs Laboratory Tests Test 01/22/17 11:26 01/22/17 11:55 01/23/17 04:19 Urine Collection Type Void Urine Color Yellow Urine Clarity Clear Urine pH 6.0 Urine Specific [place] 1.010 Urine Protein Negative mg/dL (NEG-TRACE) Urine Glucose (UA) Negative mg/dL (NEG) Urine Ketones (Stick) Negative mg/dL (NEG) Urine Blood Negative (NEG) Urine Nitrite Negative (NEG) Urine Bilirubin Negative (NEG) Urine Urobilinogen Dipstick 1.0 mg/dL (0.2 mg/dL) Urine Leukocyte Esterase Moderate (NEG) Urine RBC Occ /HPF (0-2) Urine WBC 11-20 /HPF (0-4) Urine Squamous Epithelial Cells Few /LPF Urine Bacteria Moderate /HPF (0-FEW) Urine Opiates Screen Pos (NEG) Urine Methadone Screen Neg (NEG) Urine Barbiturates Neg (NEG) Urine Phencyclidine Screen Neg (NEG) Urine Amphetamine/Methamphetamine Neg (NEG) Urine Benzodiazepines Screen Pos (NEG) Urine Cocaine Screen Neg (NEG) Urine Cannabinoids Screen Pos (NEG) Urine Ethyl Alcohol Neg (NEG) White Blood Count 8.8 x10^3/uL (4.0-11.0) 5.6 x10^3/uL (4.0-11.0) Red Blood Count 4.06 x10^6/uL (3.50-5.40) 3.57 x10^6/uL (3.50-5.40) Hemoglobin 11.9 g/dL (12.0-15.5) 10.4 g/dL (12.0-15.5) Hematocrit 35.3 % (36.0-47.0) 31.0 % (36.0-47.0) Mean Corpuscular Volume 87 fL (79-100) 87 fL (79-100) Mean Corpuscular Hemoglobin 29 pg (25-35) 29 pg (25-35) Mean Corpuscular Hemoglobin Concent 34 g/dL (31-37) 34 g/dL (31-37) Red Cell Distribution Width 13.8 % (11.5-14.5) 14.7 % (11.5-14.5) Platelet Count 171 x10^3/uL (140-400) 138 x10^3/uL (140-400) Neutrophils (%) (Auto) 71 % (31-73) 58 % (31-73) Lymphocytes (%) (Auto) 22 % (24-48) 33 % (24-48) Monocytes (%) (Auto) 5 % (0-9) 6 % (0-9) Eosinophils (%) (Auto) 1 % (0-3) 3 % (0-3) Basophils (%) (Auto) 1 % (0-3) 0 % (0-3) Neutrophils # (Auto) 6.3 x10^3uL (1.8-7.7) 3.2 x10^3uL (1.8-7.7) Lymphocytes # (Auto) 1.9 x10^3/uL (1.0-4.8) 1.8 x10^3/uL (1.0-4.8) Monocytes # (Auto) 0.5 x10^3/uL (0.0-1.1) 0.3 x10^3/uL (0.0-1.1) Eosinophils # (Auto) 0.1 x10^3/uL (0.0-0.7) 0.1 x10^3/uL (0.0-0.7) Basophils # (Auto) 0.0 x10^3/uL (0.0-0.2) 0.0 x10^3/uL (0.0-0.2) Prothrombin Time 12.6 SEC (11.7-14.0) Prothromb Time International Ratio 1.0 (0.8-1.1) Activated Partial Thromboplast Time 20 SEC (24-38) Sodium Level 140 mmol/L (136-145) 144 mmol/L (136-145) Potassium Level 3.7 mmol/L (3.5-5.1) 4.4 mmol/L (3.5-5.1) Chloride Level 104 mmol/L (98-107) 110 mmol/L (98-107) Carbon Dioxide Level 28 mmol/L (21-32) 31 mmol/L (21-32) Anion Gap 8 (6-14) 3 (6-14) Blood Urea Nitrogen 10 mg/dL (7-20) 6 mg/dL (7-20) Creatinine 0.6 mg/dL (0.6-1.0) 0.7 mg/dL (0.6-1.0) Estimated GFR (Cockcroft-Gault) 103.8 86.9 Glucose Level 110 mg/dL (70-99) 88 mg/dL (70-99) Calcium Level 9.2 mg/dL (8.5-10.1) 8.7 mg/dL (8.5-10.1) Total Bilirubin 0.3 mg/dL (0.2-1.0) Direct Bilirubin 0.1 mg/dL (0.0-0.2) Aspartate Amino Transf (AST/SGOT) 19 U/L (15-37) Alanine Aminotransferase (ALT/SGPT) 16 U/L (14-59) Alkaline Phosphatase 70 U/L (46-116) Creatine Kinase 69 U/L (26-192) Creatine Kinase MB (Mass) < 0.5 ng/mL (0.0-3.6) Creatine Kinase MB Relative Index % (0-4) Troponin I Quantitative < 0.017 ng/mL (0.000-0.055) Total Protein 7.1 g/dL (6.4-8.2) Albumin 3.3 g/dL (3.4-5.0) Lipase 74 U/L (73-393) Laboratory Tests Test 01/22/17 11:26 01/22/17 11:55 01/23/17 04:19 Urine Collection Type Void Urine Color Yellow Urine Clarity Clear Urine pH 6.0 Urine Specific [place] 1.010 Urine Protein Negative mg/dL (NEG-TRACE) Urine Glucose (UA) Negative mg/dL (NEG) Urine Ketones (Stick) Negative mg/dL (NEG) Urine Blood Negative (NEG) Urine Nitrite Negative (NEG) Urine Bilirubin Negative (NEG) Urine Urobilinogen Dipstick 1.0 mg/dL (0.2 mg/dL) Urine Leukocyte Esterase Moderate (NEG) Urine RBC Occ /HPF (0-2) Urine WBC 11-20 /HPF (0-4) Urine Squamous Epithelial Cells Few /LPF Urine Bacteria Moderate /HPF (0-FEW) Urine Opiates Screen Pos (NEG) Urine Methadone Screen Neg (NEG) Urine Barbiturates Neg (NEG) Urine Phencyclidine Screen Neg (NEG) Urine Amphetamine/Methamphetamine Neg (NEG) Urine Benzodiazepines Screen Pos (NEG) Urine Cocaine Screen Neg (NEG) Urine Cannabinoids Screen Pos (NEG) Urine Ethyl Alcohol Neg (NEG) White Blood Count 8.8 x10^3/uL (4.0-11.0) 5.6 x10^3/uL (4.0-11.0) Red Blood Count 4.06 x10^6/uL (3.50-5.40) 3.57 x10^6/uL (3.50-5.40) Hemoglobin 11.9 g/dL (12.0-15.5) 10.4 g/dL (12.0-15.5) Hematocrit 35.3 % (36.0-47.0) 31.0 % (36.0-47.0) Mean Corpuscular Volume 87 fL (79-100) 87 fL (79-100) Mean Corpuscular Hemoglobin 29 pg (25-35) 29 pg (25-35) Mean Corpuscular Hemoglobin Concent 34 g/dL (31-37) 34 g/dL (31-37) Red Cell Distribution Width 13.8 % (11.5-14.5) 14.7 % (11.5-14.5) Platelet Count 171 x10^3/uL (140-400) 138 x10^3/uL (140-400) Neutrophils (%) (Auto) 71 % (31-73) 58 % (31-73) Lymphocytes (%) (Auto) 22 % (24-48) 33 % (24-48) Monocytes (%) (Auto) 5 % (0-9) 6 % (0-9) Eosinophils (%) (Auto) 1 % (0-3) 3 % (0-3) Basophils (%) (Auto) 1 % (0-3) 0 % (0-3) Neutrophils # (Auto) 6.3 x10^3uL (1.8-7.7) 3.2 x10^3uL (1.8-7.7) Lymphocytes # (Auto) 1.9 x10^3/uL (1.0-4.8) 1.8 x10^3/uL (1.0-4.8) Monocytes # (Auto) 0.5 x10^3/uL (0.0-1.1) 0.3 x10^3/uL (0.0-1.1) Eosinophils # (Auto) 0.1 x10^3/uL (0.0-0.7) 0.1 x10^3/uL (0.0-0.7) Basophils # (Auto) 0.0 x10^3/uL (0.0-0.2) 0.0 x10^3/uL (0.0-0.2) Prothrombin Time 12.6 SEC (11.7-14.0) Prothromb Time International Ratio 1.0 (0.8-1.1) Activated Partial Thromboplast Time 20 SEC (24-38) Sodium Level 140 mmol/L (136-145) 144 mmol/L (136-145) Potassium Level 3.7 mmol/L (3.5-5.1) 4.4 mmol/L (3.5-5.1) Chloride Level 104 mmol/L (98-107) 110 mmol/L (98-107) Carbon Dioxide Level 28 mmol/L (21-32) 31 mmol/L (21-32) Anion Gap 8 (6-14) 3 (6-14) Blood Urea Nitrogen 10 mg/dL (7-20) 6 mg/dL (7-20) Creatinine 0.6 mg/dL (0.6-1.0) 0.7 mg/dL (0.6-1.0) Estimated GFR (Cockcroft-Gault) 103.8 86.9 Glucose Level 110 mg/dL (70-99) 88 mg/dL (70-99) Calcium Level 9.2 mg/dL (8.5-10.1) 8.7 mg/dL (8.5-10.1) Total Bilirubin 0.3 mg/dL (0.2-1.0) Direct Bilirubin 0.1 mg/dL (0.0-0.2) Aspartate Amino Transf (AST/SGOT) 19 U/L (15-37) Alanine Aminotransferase (ALT/SGPT) 16 U/L (14-59) Alkaline Phosphatase 70 U/L (46-116) Creatine Kinase 69 U/L (26-192) Creatine Kinase MB (Mass) < 0.5 ng/mL (0.0-3.6) Creatine Kinase MB Relative Index % (0-4) Troponin I Quantitative < 0.017 ng/mL (0.000-0.055) Total Protein 7.1 g/dL (6.4-8.2) Albumin 3.3 g/dL (3.4-5.0) Lipase 74 U/L (73-393) Medications Current Medications Morphine Sulfate 4 mg PRN Q15MIN PRN IV/SQ PAIN GREATER THAN 3/10; Start 01/22 at 12:00; Stop 01/23/17 at 11:59; Status UNV Sodium Chloride 1,000 ml @ 1,000 mls/hr Q1H IV Last administered on 12:22; Start 01/22/17 at 12:00; Stop 01/22/17 at 12:59; Status DC Promethazine HCl 12.5 mg/Dextrose 50.5 ml @ 151.5 mls/ hr PRN Q6HRS PRN IV NAUSEA/VOMITING Last administered on 01/22/17 12:23; Start 01/22/17 at 12:00 Fentanyl Citrate (Fentanyl 2ml Vial) 50 mcg PRN Q15MIN PRN IV PAIN GREATER THAN 3/10 Last administered on 01/22/17 12:48; Start 01/22/17 at 12:30; Stop 01/22/17 at 13:09; Status DC Hydromorphone HCl (Dilaudid) 1 mg PRN Q15MIN PRN IV/SQ PAIN GREATER THAN 3/10 Last administered on 01/22/17 15:02; Start 01/22/17 at 13:15; Stop 01/22/17 at 18:44; Status DC Ondansetron HCl (Zofran) 4 mg PRN Q8HRS PRN IV NAUSEA/VOMITING Last administered on 01/22/17 17:15; Start 01/22/17 at 15:00; Stop 01/23/17 at 14 :59 Fentanyl Citrate (Fentanyl 2ml Vial) 50 mcg PRN Q1HR PRN IV PAIN; Start at 15:00; Stop 01/23/17 at 14:59 Hydromorphone HCl (Dilaudid) 0.3 mg PRN Q4HRS PRN IVP PAIN Last administered on 01/23/17 02:39; Start 01/22/17 at 16:15 Oxycodone HCl (Roxicodone) 5 mg PRN Q6HRS PRN PO PAIN; Start 01/22/17 at 16:15 ; Status Cancel Famotidine (Pepcid Vial) 20 mg BID IVP Last administered on 01/22/17 20:08; Start 01/22/17 at 21:00 Diphenhydramine HCl (Benadryl) 25 mg PRN Q6HRS PRN PO ITCHING Last administered on 01/22/17 18:33; Start 01/22/17 at 18:15 Alprazolam (Xanax) 0.5 mg QID PRN PO ANXIETY / AGITATION; Start 01/22/17 at 18 :30 Aspirin (Ecotrin) 81 mg DAILYWBKFT PO ; Start 01/23/17 at 08:00 Lisinopril (Prinivil) 10 mg DAILY PO ; Start 01/23/17 at 09:00 Metoprolol Tartrate (Lopressor) 12.5 mg BID PO ; Start 01/22/17 at 21:00 Oxycodone/ Acetaminophen (Percocet 10/325) 1 tab Q4HRS PRN PO PAIN Last administered on 01/23/17 06:23; Start 01/22/17 at 18:30 Pantoprazole Sodium (Protonix) 40 mg BIDAC PO Last administered on 01/22/17 20:06; Start 01/22/17 at 18:45 Ropinirole HCl (Requip) 1 mg DAILY PO ; Start 01/23/17 at 09:00 Simvastatin (Zocor) 40 mg QHS PO Last administered on 01/22/17 20:08; Start 01/22/17 at 21:00 Sucralfate (Carafate) 1 gm QIDPMEDS PO Last administered on 01/22/17 21:19; Start 01/22/17 at 22:00 Linaclotide (Linzess) 290 mcg Q48H PO Last administered on 01/23/17 06:22; Start 01/23/17 at 07:00 Non-Formulary Medication 1 cap DAILY PO ; Start 01/23/17 at 09:00; Status UNV Zolpidem Tartrate (Ambien) 5 mg QHS PO Last administered on 01/22/17 20:08; Start 01/22/17 at 21:00 Dronabinol (Marinol) 5 mg BIDACLD PO ; Start 01/23/17 at 11:30 Venlafaxine HCl (Effexor) 75 mg TID PO Last administered on 01/22/17 20:07; Start 01/22/17 at 21:00 Fluconazole (Diflucan) 150 mg 1X ONCE PO Last administered on 01/22/17 20:07 ; Start 01/22/17 at 19:30; Stop 01/22/17 at 19:31; Status DC Ceftriaxone Sodium 1 gm/ Dextrose 50 ml @ 100 mls/hr Q24H IV ; Start 01/23/17 at 08:30; Stop 01/23/17 at 08:30; Status DC Ceftriaxone Sodium (Rocephin) 1 gm Q24H IVP ; Start 01/23/17 at 09:00 Active Scripts Active Carafate (Sucralfate) 1 Gm Tablet 1 Tab PO QID dissolve tablet in water before ingestion Percocet 10-325 Mg Tablet (Oxycodone/Acetaminophen) 1 Each Tablet 1 Tab PO Q4HRS PRN Protonix (Pantoprazole Sodium) 40 Mg Tablet.dr 1 Tab PO BID Reported Marinol (Dronabinol) 5 Mg Capsule 5 Mg PO Aspir 81 (Aspirin) 81 Mg Tablet.dr 1 Tab PO DAILY Trazodone Hcl 300 Mg Tablet 1 Tab PO QHS Linzess (Linaclotide) 290 Mcg Capsule 290 Mcg PO TWICE WEEKLY Hydrocodone-Apap 10-325 (Hydrocodone Bit/Acetaminophen) 1 Each Tablet 1 Tab PO PRN Q6HRS PRN Metoprolol Tartrate 25 Mg Tablet 0.5 Tab PO BID Lisinopril 10 Mg Tablet 1 Tab PO DAILY Ambien (Zolpidem Tartrate) 10 Mg Tablet 1 Tab PO QHS Zocor (Simvastatin) 40 Mg Tablet 1 Tab PO QHS Requip (Ropinirole Hcl) 1 Mg Tablet 1 Mg PO DAILY Xanax (Alprazolam) 0.5 Mg Tablet 0.5 Mg PO QID PRN Effexor Xr (Venlafaxine Hcl) 150 Mg Cap.er.24h 1 Cap PO DAILY Effexor Xr (Venlafaxine Hcl) 75 Mg Cap.er.24h 1 Cap PO DAILY Vitals/I & O Vital Sign - Last 24 Hours 01/22/17 01/22/17 01/22/17 01/22/17 11:26 12:00 12:30 13:30 Temp 97.8 97.8 Pulse 80 74 66 64 Resp 20 B/P (MAP) 103/55 (71) 101/55 (70) 100/55 (70) 103/74 (84) Pulse Ox 99 99 99 99 O2 Delivery Room Air Room Air Room Air Room Air 01/22/17 01/22/17 01/22/17 01/22/17 14:00 15:00 15:51 16:10 Temp 98.5 98.5 Pulse 66 64 86 Resp 18 B/P (MAP) 121/64 (83) 117/63 (81) 125/51 (75) Pulse Ox 95 99 99 96 O2 Delivery Room Air Room Air Room Air 01/22/17 01/22/17 01/22/17 01/22/17 17:04 17:47 19:55 20:09 Temp 98.5 98.5 Pulse 70 70 Resp 16 B/P (MAP) 95/56 (69) 95/56 Pulse Ox 96 98 O2 Delivery Room Air Room Air 01/22/17 01/22/17 01/23/17 01/23/17 20:10 23:45 03:44 06:59 Temp 98.3 98.0 98.1 98.3 98.0 98.1 Pulse 64 61 60 Resp 16 16 19 B/P (MAP) 91/49 (63) 93/47 (62) 118/41 (66) Pulse Ox 98 99 99 O2 Delivery Room Air Room Air Room Air Room Air Intake and Output 01/22/17 01/22/17 01/23/17 15:00 23:00 07:00 Intake Total 1050 ml 0 ml 1320 ml Balance 1050 ml 0 ml 1320 ml WINDY CHAPIN MD Jan 23, 2017 08:59
--- NOTE | 2017-01-23 08:59 | PDOC ---
Subjective: Subjective: Better today, less pain. Tolerating clears. PEG has never helped nausea, wondering about removal. Has discussed Relistor w/ the office, would like to try here. Objective: Objective: D/w Dr. Engel. Vital Signs: Vital Signs Date Time Temp Pulse Resp B/P (MAP) Pulse Ox O2 Delivery O2 Flow Rate FiO2 01/23/17 06:59 98.1 60 19 118/41 (66) 99 Room Air 98.1 Labs: Laboratory Tests Test 01/22/17 11:26 01/22/17 11:55 01/23/17 04:19 Urine Collection Type Void Urine Color Yellow Urine Clarity Clear Urine pH 6.0 Urine Specific [place] 1.010 Urine Protein Negative mg/dL Urine Glucose (UA) Negative mg/dL Urine Ketones (Stick) Negative mg/dL Urine Blood Negative Urine Nitrite Negative Urine Bilirubin Negative Urine Urobilinogen Dipstick 1.0 mg/dL Urine Leukocyte Esterase Moderate Urine RBC Occ /HPF Urine WBC 11-20 /HPF Urine Squamous Epithelial Cells Few /LPF Urine Bacteria Moderate /HPF Urine Opiates Screen Pos Urine Methadone Screen Neg Urine Barbiturates Neg Urine Phencyclidine Screen Neg Urine Amphetamine/Methamphetamine Neg Urine Benzodiazepines Screen Pos Urine Cocaine Screen Neg Urine Cannabinoids Screen Pos Urine Ethyl Alcohol Neg White Blood Count 8.8 x10^3/uL 5.6 x10^3/uL Red Blood Count 4.06 x10^6/uL 3.57 x10^6/uL Hemoglobin 11.9 g/dL 10.4 g/dL Hematocrit 35.3 % 31.0 % Mean Corpuscular Volume 87 fL 87 fL Mean Corpuscular Hemoglobin 29 pg 29 pg Mean Corpuscular Hemoglobin Concent 34 g/dL 34 g/dL Red Cell Distribution Width 13.8 % 14.7 % Platelet Count 171 x10^3/uL 138 x10^3/uL Neutrophils (%) (Auto) 71 % 58 % Lymphocytes (%) (Auto) 22 % 33 % Monocytes (%) (Auto) 5 % 6 % Eosinophils (%) (Auto) 1 % 3 % Basophils (%) (Auto) 1 % 0 % Neutrophils # (Auto) 6.3 x10^3uL 3.2 x10^3uL Lymphocytes # (Auto) 1.9 x10^3/uL 1.8 x10^3/uL Monocytes # (Auto) 0.5 x10^3/uL 0.3 x10^3/uL Eosinophils # (Auto) 0.1 x10^3/uL 0.1 x10^3/uL Basophils # (Auto) 0.0 x10^3/uL 0.0 x10^3/uL Prothrombin Time 12.6 SEC Prothromb Time International Ratio 1.0 Activated Partial Thromboplast Time 20 SEC Sodium Level 140 mmol/L 144 mmol/L Potassium Level 3.7 mmol/L 4.4 mmol/L Chloride Level 104 mmol/L 110 mmol/L Carbon Dioxide Level 28 mmol/L 31 mmol/L Anion Gap 8 3 Blood Urea Nitrogen 10 mg/dL 6 mg/dL Creatinine 0.6 mg/dL 0.7 mg/dL Estimated GFR (Cockcroft-Gault) 103.8 86.9 Glucose Level 110 mg/dL 88 mg/dL Calcium Level 9.2 mg/dL 8.7 mg/dL Total Bilirubin 0.3 mg/dL Direct Bilirubin 0.1 mg/dL Aspartate Amino Transf (AST/SGOT) 19 U/L Alanine Aminotransferase (ALT/SGPT) 16 U/L Alkaline Phosphatase 70 U/L Creatine Kinase 69 U/L Creatine Kinase MB (Mass) < 0.5 ng/mL Creatine Kinase MB Relative Index % Troponin I Quantitative < 0.017 ng/mL Total Protein 7.1 g/dL Albumin 3.3 g/dL Lipase 74 U/L PE: GEN: NAD LUNGS: CTAB HEART: RRR ABD: PEG in place - I do note some firmness around site today, tenderness associated, less yellow drainage, no warmth/erythema NEURO/PSYCH: A & O 3, much more calm A/P: Chronic abd pain, n/v -complicated surgical history w/ Adrianne fundoplication, gastric perf w/ pyloroplasty -last EGD/colon @ [facility] 04/2016, normal GES this month -on Marinol, Protonix PEG in place w/ abd pain, h/o MRSA infection -uses for decompression - says doesn't help nausea -replaced 01/08/17: 20 Fr, 6mm balloon ---> now says normally 6mm balloon is filled w/ 20cc OIC -would like to try Relistor UTI -atbx per primary -- ?remove PEG - she does have concerns re: n/v in an "emergency" situation w/ h/o perf Add Relistor, ADAT. Discuss removing PEG w/ Dr. Tian. AMAURY WANG Jan 23, 2017 08:59
[2017-01-23] MEDS: METOPROLOL TART IMMED RELEASE 25 MG TABLET. PO SCH (09:00)
[2017-01-23] MEDS ORDERED: LISINOPRIL 10 MG TABLET PO SCH (09:00)
[2017-01-23] MEDS ORDERED: NON FORMULARY ITEM (Venlafaxine Hcl (Effexor Xr) 1 CAP) PO SCH (09:00)
[2017-01-23] MEDS ORDERED: METHYLNALTREXONE 12 MG/0.6 ML VIAL. SQ ONE (09:00)
[2017-01-23] MEDS ORDERED: rOPINIRole 1 MG TABLET. PO SCH (09:00)
[2017-01-23] MEDS ORDERED: cefTRIAXone IV Push 1 GM VIAL. IVP SCH (09:00)
[2017-01-23] MEDS: ONDANSETRON PF 4 MG/2 ML VIAL. IV PRN (09:13)
[2017-01-23] MEDS: PANTOPRAZOLE 40 MG TABLET.DR. PO SCH (09:15)
[2017-01-23] MEDS: VENLAFAXINE 75 MG TABLET. PO SCH ×2 (09:15→13:15)
[2017-01-23] MEDS: SUCRALFATE 1 GM TABLET. PO SCH ×2 (09:36→13:15)
[2017-01-23 10:41] VITALS: BP 109/56
[2017-01-23] MEDS ORDERED: DRONABINOL 2.5 MG CAPSULE. PO SCH (11:30)
--- NOTE | 2017-01-23 13:26 | PDOC2 ---
KRISSYHUGH Paco [employer] 01/23/17 1326: CONSULT Date of Consult Date of Consult DATE: 01/23/17 TIME: 13:11 Reason for Consult Reason for Consult: chronic pain Referring Physician Referring Physician: Dr Engel Identification/Chief Complaint Chief Complaint chronic abd pain Problems: Source Source: Chart review, Patient History of Present Illness Reason for Visit: Chronic abdominal pain, hx of multiple abdominal surgeries, including melvin fundoplication, gastric perforation repair, pyloroplasty, appendectomy, cholecystectomy, hysterectomy Peg for gastroparesis, has been having issues with peg drainage, pain, etc--Gi is following, possible plans to remove peg She has concerns of chronic UTIS, has been seen by urology in past, asking about staple on xray Past Medical History Pulmonary: Other (REAL) CENTRAL NERVOUS SYSTEM: CVA GI: GERD, Other (gastroparesis, chronic abdominal pain, Barretts) Psych: Anxiety, Depression Rheumatologic: Fibromyalgia Past Surgical History Past Surgical History: Appendectomy, Cholecystectomy, Hysterectomy, Other ( melvin fundoplication, gastric repair, pyloroplasty) Family History Family History: Cancer (colon) Social History No ALCOHOL: none Drugs: None Lives: with Family Current Problem List Problem List Problems Medical Problems: (1) Abdominal pain Status: Acute Current Medications Current Medications Current Medications Morphine Sulfate 4 mg PRN Q15MIN PRN IV/SQ PAIN GREATER THAN 3/10; Start 01/22 at 12:00; Stop 01/23/17 at 11:59; Status UNV Sodium Chloride 1,000 ml @ 1,000 mls/hr Q1H IV Last administered on 12:22; Start 01/22/17 at 12:00; Stop 01/22/17 at 12:59; Status DC Promethazine HCl 12.5 mg/Dextrose 50.5 ml @ 151.5 mls/ hr PRN Q6HRS PRN IV NAUSEA/VOMITING Last administered on 01/22/17 12:23; Start 01/22/17 at 12:00 Fentanyl Citrate (Fentanyl 2ml Vial) 50 mcg PRN Q15MIN PRN IV PAIN GREATER THAN 3/10 Last administered on 01/22/17 12:48; Start 01/22/17 at 12:30; Stop 01/22/17 at 13:09; Status DC Hydromorphone HCl (Dilaudid) 1 mg PRN Q15MIN PRN IV/SQ PAIN GREATER THAN 3/10 Last administered on 01/22/17 15:02; Start 01/22/17 at 13:15; Stop 01/22/17 at 18:44; Status DC Ondansetron HCl (Zofran) 4 mg PRN Q8HRS PRN IV NAUSEA/VOMITING Last administered on 01/23/17 09:13; Start 01/22/17 at 15:00; Stop 01/23/17 at 14 :59 Fentanyl Citrate (Fentanyl 2ml Vial) 50 mcg PRN Q1HR PRN IV PAIN; Start at 15:00; Stop 01/23/17 at 14:59 Hydromorphone HCl (Dilaudid) 0.3 mg PRN Q4HRS PRN IVP PAIN Last administered on 01/23/17 09:21; Start 01/22/17 at 16:15 Oxycodone HCl (Roxicodone) 5 mg PRN Q6HRS PRN PO PAIN; Start 01/22/17 at 16:15 ; Status Cancel Famotidine (Pepcid Vial) 20 mg BID IVP Last administered on 01/22/17 20:08; Start 01/22/17 at 21:00; Stop 01/23/17 at 09:00; Status DC Diphenhydramine HCl (Benadryl) 25 mg PRN Q6HRS PRN PO ITCHING Last administered on 01/22/17 18:33; Start 01/22/17 at 18:15 Alprazolam (Xanax) 0.5 mg QID PRN PO ANXIETY / AGITATION; Start 01/22/17 at 18 :30 Aspirin (Ecotrin) 81 mg DAILYWBKFT PO Last administered on 01/23/17 09:13; Start 01/23/17 at 08:00 Lisinopril (Prinivil) 10 mg DAILY PO Last administered on 01/23/17 09:15; Start 01/23/17 at 09:00 Metoprolol Tartrate (Lopressor) 12.5 mg BID PO ; Start 01/22/17 at 21:00 Oxycodone/ Acetaminophen (Percocet 10/325) 1 tab Q4HRS PRN PO PAIN Last administered on 01/23/17 06:23; Start 01/22/17 at 18:30 Pantoprazole Sodium (Protonix) 40 mg BIDAC PO Last administered on 01/23/17 09:15; Start 01/22/17 at 18:45 Ropinirole HCl (Requip) 1 mg DAILY PO Last administered on 01/23/17 09:36; Start 01/23/17 at 09:00 Simvastatin (Zocor) 40 mg QHS PO Last administered on 01/22/17 20:08; Start 01/22/17 at 21:00 Sucralfate (Carafate) 1 gm QIDPMEDS PO Last administered on 01/23/17 09:36; Start 01/22/17 at 22:00 Linaclotide (Linzess) 290 mcg Q48H PO Last administered on 01/23/17 06:22; Start 01/23/17 at 07:00 Non-Formulary Medication 1 cap DAILY PO ; Start 01/23/17 at 09:00; Status UNV Zolpidem Tartrate (Ambien) 5 mg QHS PO Last administered on 01/22/17 20:08; Start 01/22/17 at 21:00 Dronabinol (Marinol) 5 mg BIDACLD PO ; Start 01/23/17 at 11:30 Venlafaxine HCl (Effexor) 75 mg TID PO Last administered on 01/23/17 09:15; Start 01/22/17 at 21:00 Fluconazole (Diflucan) 150 mg 1X ONCE PO Last administered on 01/22/17 20:07 ; Start 01/22/17 at 19:30; Stop 01/22/17 at 19:31; Status DC Ceftriaxone Sodium 1 gm/ Dextrose 50 ml @ 100 mls/hr Q24H IV ; Start 01/23/17 at 08:30; Stop 01/23/17 at 08:30; Status DC Ceftriaxone Sodium (Rocephin) 1 gm Q24H IVP Last administered on 01/23/17 09: 22; Start 01/23/17 at 09:00 Methylnaltrexone [place] (Relistor) 12 mg 1X ONCE SQ Last administered on 09:36; Start 01/23/17 at 09:00; Stop 11/30/17 at 09:02; Status DC Active Scripts Active Carafate (Sucralfate) 1 Gm Tablet 1 Tab PO QID dissolve tablet in water before ingestion Percocet 10-325 Mg Tablet (Oxycodone/Acetaminophen) 1 Each Tablet 1 Tab PO Q4HRS PRN Protonix (Pantoprazole Sodium) 40 Mg Tablet. 1 Tab PO BID Reported Marinol (Dronabinol) 5 Mg Capsule 5 Mg PO Aspir 81 (Aspirin) 81 Mg Tablet. 1 Tab PO DAILY Trazodone Hcl 300 Mg Tablet 1 Tab PO QHS Linzess (Linaclotide) 290 Mcg Capsule 290 Mcg PO TWICE WEEKLY Hydrocodone-Apap 10-325 (Hydrocodone Bit/Acetaminophen) 1 Each Tablet 1 Tab PO PRN Q6HRS PRN Metoprolol Tartrate 25 Mg Tablet 0.5 Tab PO BID Lisinopril 10 Mg Tablet 1 Tab PO DAILY Ambien (Zolpidem Tartrate) 10 Mg Tablet 1 Tab PO QHS Zocor (Simvastatin) 40 Mg Tablet 1 Tab PO QHS Requip (Ropinirole Hcl) 1 Mg Tablet 1 Mg PO DAILY Xanax (Alprazolam) 0.5 Mg Tablet 0.5 Mg PO QID PRN Effexor Xr (Venlafaxine Hcl) 150 Mg Cap.er.24h 1 Cap PO DAILY Effexor Xr (Venlafaxine Hcl) 75 Mg Cap.er.24h 1 Cap PO DAILY Allergies Allergies: Coded Allergies: Estrogens (Verified Allergy, Severe, LOSS OF VISION, 08/06/16) Latex, Natural Rubber (Verified Allergy, Intermediate, RASH, 08/06/16) clarithromycin (Verified Allergy, Intermediate, rash, 08/06/16) levofloxacin (Verified Allergy, Intermediate, rash, 08/06/16) morphine (Verified Allergy, Intermediate, rash, 08/06/16) paroxetine (Verified Allergy, Intermediate, RASH/VOMITING, 08/06/16) I S O L A T I O N *CONTACT* (Verified Allergy, Unknown, 01/23/17) stated hx mrsa amoxicillin (Verified Adverse Reaction, Intermediate, VOMITING, 11/08/16) clavulanic acid (Verified Adverse Reaction, Intermediate, VOMITING, ) iron (Verified Adverse Reaction, Intermediate, ringing in ears, 01/23/17) labetalol (Verified Adverse Reaction, Intermediate, itching, 01/23/17) quinine (Verified Adverse Reaction, Intermediate, diarrhea, 01/23/17) ROS General: YES: Chills, Fatigue PSYCHOLOGICAL ROS: No: Anxiety, Depression Eyes: No Blurry vision, No Double vision HEENT: No: Heacaches, Sore Throat Hematological and Lymphatic: No: Bleeding Problems, Blood Clots Respiratory: YES: SOB with excertion, No: Cough Cardiovascular: No Chest Pain, No Palpitations Gastrointestinal: Yes Other (see hpi) Genitourinary: No Dysuria, No Hematuria Musculoskeletal: No Joint Pain, No Muscle Pain Neurological: No Confusion, No Numbness/Tingling Skin: No Pruritus, No Rash Physical Exam General: Alert, Oriented X3, Cooperative, No acute distress HEENT: PERRLA, Mucous membr. moist/pink Lungs: Clear to auscultation, Normal air movement Heart: Regular rate, Normal S1, Normal S2, No murmurs Abdomen: Soft, Other (ND, peg in place, tender upper abdomen ) Extremities: No clubbing, No cyanosis Skin: No rashes, No breakdown Neuro: Normal gait, Normal speech Psych/Mental Status: Mental status NL, Mood NL MUSCULOSKELETAL: No deformity, No swelling Vitals VITALS Vital Signs Date Time Temp Pulse Resp B/P (MAP) Pulse Ox O2 Delivery O2 Flow Rate FiO2 01/23/17 10:41 98.2 67 18 109/56 (73) 99 Room Air 98.2 Labs Labs Laboratory Tests Test 01/22/17 11:26 01/22/17 11:55 01/23/17 04:19 Urine Collection Type Void Urine Color Yellow Urine Clarity Clear Urine pH 6.0 Urine Specific [place] 1.010 Urine Protein Negative mg/dL (NEG-TRACE) Urine Glucose (UA) Negative mg/dL (NEG) Urine Ketones (Stick) Negative mg/dL (NEG) Urine Blood Negative (NEG) Urine Nitrite Negative (NEG) Urine Bilirubin Negative (NEG) Urine Urobilinogen Dipstick 1.0 mg/dL (0.2 mg/dL) Urine Leukocyte Esterase Moderate (NEG) Urine RBC Occ /HPF (0-2) Urine WBC 11-20 /HPF (0-4) Urine Squamous Epithelial Cells Few /LPF Urine Bacteria Moderate /HPF (0-FEW) Urine Opiates Screen Pos (NEG) Urine Methadone Screen Neg (NEG) Urine Barbiturates Neg (NEG) Urine Phencyclidine Screen Neg (NEG) Urine Amphetamine/Methamphetamine Neg (NEG) Urine Benzodiazepines Screen Pos (NEG) Urine Cocaine Screen Neg (NEG) Urine Cannabinoids Screen Pos (NEG) Urine Ethyl Alcohol Neg (NEG) White Blood Count 8.8 x10^3/uL (4.0-11.0) 5.6 x10^3/uL (4.0-11.0) Red Blood Count 4.06 x10^6/uL (3.50-5.40) 3.57 x10^6/uL (3.50-5.40) Hemoglobin 11.9 g/dL (12.0-15.5) 10.4 g/dL (12.0-15.5) Hematocrit 35.3 % (36.0-47.0) 31.0 % (36.0-47.0) Mean Corpuscular Volume 87 fL (79-100) 87 fL (79-100) Mean Corpuscular Hemoglobin 29 pg (25-35) 29 pg (25-35) Mean Corpuscular Hemoglobin Concent 34 g/dL (31-37) 34 g/dL (31-37) Red Cell Distribution Width 13.8 % (11.5-14.5) 14.7 % (11.5-14.5) Platelet Count 171 x10^3/uL (140-400) 138 x10^3/uL (140-400) Neutrophils (%) (Auto) 71 % (31-73) 58 % (31-73) Lymphocytes (%) (Auto) 22 % (24-48) 33 % (24-48) Monocytes (%) (Auto) 5 % (0-9) 6 % (0-9) Eosinophils (%) (Auto) 1 % (0-3) 3 % (0-3) Basophils (%) (Auto) 1 % (0-3) 0 % (0-3) Neutrophils # (Auto) 6.3 x10^3uL (1.8-7.7) 3.2 x10^3uL (1.8-7.7) Lymphocytes # (Auto) 1.9 x10^3/uL (1.0-4.8) 1.8 x10^3/uL (1.0-4.8) Monocytes # (Auto) 0.5 x10^3/uL (0.0-1.1) 0.3 x10^3/uL (0.0-1.1) Eosinophils # (Auto) 0.1 x10^3/uL (0.0-0.7) 0.1 x10^3/uL (0.0-0.7) Basophils # (Auto) 0.0 x10^3/uL (0.0-0.2) 0.0 x10^3/uL (0.0-0.2) Prothrombin Time 12.6 SEC (11.7-14.0) Prothromb Time International Ratio 1.0 (0.8-1.1) Activated Partial Thromboplast Time 20 SEC (24-38) Sodium Level 140 mmol/L (136-145) 144 mmol/L (136-145) Potassium Level 3.7 mmol/L (3.5-5.1) 4.4 mmol/L (3.5-5.1) Chloride Level 104 mmol/L (98-107) 110 mmol/L (98-107) Carbon Dioxide Level 28 mmol/L (21-32) 31 mmol/L (21-32) Anion Gap 8 (6-14) 3 (6-14) Blood Urea Nitrogen 10 mg/dL (7-20) 6 mg/dL (7-20) Creatinine 0.6 mg/dL (0.6-1.0) 0.7 mg/dL (0.6-1.0) Estimated GFR (Cockcroft-Gault) 103.8 86.9 Glucose Level 110 mg/dL (70-99) 88 mg/dL (70-99) Calcium Level 9.2 mg/dL (8.5-10.1) 8.7 mg/dL (8.5-10.1) Total Bilirubin 0.3 mg/dL (0.2-1.0) Direct Bilirubin 0.1 mg/dL (0.0-0.2) Aspartate Amino Transf (AST/SGOT) 19 U/L (15-37) Alanine Aminotransferase (ALT/SGPT) 16 U/L (14-59) Alkaline Phosphatase 70 U/L (46-116) Creatine Kinase 69 U/L (26-192) Creatine Kinase MB (Mass) < 0.5 ng/mL (0.0-3.6) Creatine Kinase MB Relative Index % (0-4) Troponin I Quantitative < 0.017 ng/mL (0.000-0.055) Total Protein 7.1 g/dL (6.4-8.2) Albumin 3.3 g/dL (3.4-5.0) Lipase 74 U/L (73-393) Laboratory Tests Test 01/23/17 04:19 White Blood Count 5.6 x10^3/uL (4.0-11.0) Red Blood Count 3.57 x10^6/uL (3.50-5.40) Hemoglobin 10.4 g/dL (12.0-15.5) Hematocrit 31.0 % (36.0-47.0) Mean Corpuscular Volume 87 fL (79-100) Mean Corpuscular Hemoglobin 29 pg (25-35) Mean Corpuscular Hemoglobin Concent 34 g/dL (31-37) Red Cell Distribution Width 14.7 % (11.5-14.5) Platelet Count 138 x10^3/uL (140-400) Neutrophils (%) (Auto) 58 % (31-73) Lymphocytes (%) (Auto) 33 % (24-48) Monocytes (%) (Auto) 6 % (0-9) Eosinophils (%) (Auto) 3 % (0-3) Basophils (%) (Auto) 0 % (0-3) Neutrophils # (Auto) 3.2 x10^3uL (1.8-7.7) Lymphocytes # (Auto) 1.8 x10^3/uL (1.0-4.8) Monocytes # (Auto) 0.3 x10^3/uL (0.0-1.1) Eosinophils # (Auto) 0.1 x10^3/uL (0.0-0.7) Basophils # (Auto) 0.0 x10^3/uL (0.0-0.2) Sodium Level 144 mmol/L (136-145) Potassium Level 4.4 mmol/L (3.5-5.1) Chloride Level 110 mmol/L (98-107) Carbon Dioxide Level 31 mmol/L (21-32) Anion Gap 3 (6-14) Blood Urea Nitrogen 6 mg/dL (7-20) Creatinine 0.7 mg/dL (0.6-1.0) Estimated GFR (Cockcroft-Gault) 86.9 Glucose Level 88 mg/dL (70-99) Calcium Level 8.7 mg/dL (8.5-10.1) Assessment/Plan Assessment/Plan chronic pain--nothing surgical to offer recommend continued GI care GLADIS AQUINO MD 01/23/17 1417: CONSULT Allergies Allergies: Coded Allergies: Estrogens (Verified Allergy, Severe, LOSS OF VISION, 08/06/16) Latex, Natural Rubber (Verified Allergy, Intermediate, RASH, 08/06/16) clarithromycin (Verified Allergy, Intermediate, rash, 08/06/16) levofloxacin (Verified Allergy, Intermediate, rash, 08/06/16) morphine (Verified Allergy, Intermediate, rash, 08/06/16) paroxetine (Verified Allergy, Intermediate, RASH/VOMITING, 08/06/16) I S O L A T I O N *CONTACT* (Verified Allergy, Unknown, 01/23/17) stated hx mrsa amoxicillin (Verified Adverse Reaction, Intermediate, VOMITING, 11/08/16) clavulanic acid (Verified Adverse Reaction, Intermediate, VOMITING, ) iron (Verified Adverse Reaction, Intermediate, ringing in ears, 01/23/17) labetalol (Verified Adverse Reaction, Intermediate, itching, 01/23/17) quinine (Verified Adverse Reaction, Intermediate, diarrhea, 01/23/17) Assessment/Plan Assessment/Plan Reviewed with Ms Medrano, records reviewed; agree, do not believe would benefit from anything surgical, management per GI plans. HUGH MEDRANO APRN Jan 23, 2017 13:26 GLADIS AQUINO MD Jan 23, 2017 14:17
[2017-01-23 14:47] VITALS: BP 110/50
[2017-01-23] MEDS ORDERED: CEPH-264 PO (14:50)
--- NOTE | 2017-02-06 10:06 | PDOC3 ---
Discharge Summary Visit Information Date of Admission: Jan 22, 2017 Date of Discharge: Jan 23, 2017 Admitting Diagnosis: abdomen pain Final Diagnosis acute on chronic abdominal pain s/p melvin UTI nausea, skin infection at PEG site, requests removal Opioid induced constipation Problems Medical Problems: (1) Abdominal pain Status: Acute Brief Hospital Course Allergies Allergies Coded Allergies Type Severity Reaction Last Updated Verified Estrogens Allergy Severe LOSS OF VISION 08/06/16 Yes Latex, Natural Rubber Allergy Intermediate RASH 08/06/16 Yes clarithromycin Allergy Intermediate rash 08/06/16 Yes levofloxacin Allergy Intermediate rash 08/06/16 Yes morphine Allergy Intermediate rash 08/06/16 Yes paroxetine Allergy Intermediate RASH/VOMITING 08/06/16 Yes I S O L A T I O N *CONTACT* Allergy Unknown 01/23/17 Yes amoxicillin Adverse Reaction Intermediate VOMITING 11/08/16 Yes clavulanic acid Adverse Reaction Intermediate VOMITING 11/08/16 Yes iron Adverse Reaction Intermediate ringing in ears 01/23/17 Yes labetalol Adverse Reaction Intermediate itching 01/23/17 Yes quinine Adverse Reaction Intermediate diarrhea 01/23/17 Yes Brief Hospital Course Ms. Everett is a 56 old female, admit with abdominal pain, hx of mult abd surgeries, pain since, GI consult following, consider PEG removal she is having chronic problems s/p melvin, consult Dr. Garcia consulted, may follow outpatient G tube removed, discharged Discharge Information Condition at Discharge: Improved Follow Up: Weeks Disposition/Orders: D/C to Home Scheduled Aspirin (Aspir 81), 1 TAB PO DAILY, (Reported) Cephalexin (Keflex), 1 CAP PO TID Linaclotide (Linzess), 290 MCG PO TWICE WEEKLY, (Reported) Lisinopril (Lisinopril), 1 TAB PO DAILY, (Reported) Metoprolol Tartrate (Metoprolol Tartrate), 0.5 TAB PO BID, (Reported) Pantoprazole Sodium (Protonix), 1 TAB PO BID Ropinirole Hcl (Requip), 1 MG PO DAILY, (Reported) Simvastatin (Zocor), 1 TAB PO QHS, (Reported) Sucralfate (Carafate), 1 TAB PO QID Trazodone Hcl (Trazodone Hcl), 1 TAB PO QHS, (Reported) Venlafaxine Hcl (Effexor Xr), 1 CAP PO DAILY, (Reported) Venlafaxine Hcl (Effexor Xr), 1 CAP PO DAILY, (Reported) Zolpidem Tartrate (Ambien), 1 TAB PO QHS, (Reported) Scheduled PRN Alprazolam (Xanax), 0.5 MG PO QID PRN for ANXIETY / AGITATION, (Reported) Hydrocodone Bit/Acetaminophen (Hydrocodone-Apap 10-325 ), 1 TAB PO PRN Q6HRS PRN for PAIN, (Reported) Oxycodone/Apap 10-325 (Percocet 10-325 Mg Tablet), 1 TAB PO Q4HRS PRN for PAIN Miscellaneous Medications Dronabinol (Marinol), 5 MG PO, (Reported) Patient Instructions Patient Instructions > 30 min face to face discussion on plan WINDY CHAPIN MD Feb 06, 2017 10:06
== END 2017-01-23 16:43 | disposition home or self-care (01) | DRG 394 ==
LOC: ER 11:11 → 6 SOUTH 14:10
PROVIDERS: ADMIT Internal Medicine Hematology & Oncology; ATTEND Internal Medicine Hematology & Oncology
PROC: 0DP6XUZ Removal of Feeding Device from Stomach, External Approach (ICD-10-PCS; principal; 2017-01-23)
DX: K94.22 Gastrostomy infection (principal); N39.0 Urinary tract infection, site not specified; D12.0 Benign neoplasm of cecum; K94.23 Gastrostomy malfunction; E78.5 Hyperlipidemia, unspecified; F32.9 Major depressive disorder, single episode, unspecified; F43.10 Post-traumatic stress disorder, unspecified; G25.81 Restless legs syndrome; G47.00 Insomnia, unspecified; G47.33 Obstructive sleep apnea (adult) (pediatric); G89.29 Other chronic pain; I10 Essential (primary) hypertension; K21.9 Gastro-esophageal reflux disease without esophagitis; K22.70 Barrett's esophagus without dysplasia; K58.9 Irritable bowel syndrome, unspecified; Z96.611 Presence of right artificial shoulder joint; L08.9 Local infection of the skin and subcutaneous tissue, unspecified; M19.90 Unspecified osteoarthritis, unspecified site; M79.7 Fibromyalgia; Z80.0 Family history of malignant neoplasm of digestive organs; Z80.3 Family history of malignant neoplasm of breast; Z80.41 Family history of malignant neoplasm of ovary; Z82.3 Family history of stroke; Z82.49 Family history of ischemic heart disease and other diseases of the circulatory system; Z86.14 Personal history of Methicillin resistant Staphylococcus aureus infection; Z86.73 Personal history of transient ischemic attack (TIA), and cerebral infarction without residual deficits; Z87.11 Personal history of peptic ulcer disease; Z90.49 Acquired absence of other specified parts of digestive tract; Z90.710 Acquired absence of both cervix and uterus; Z88.6 Allergy status to analgesic agent; Z88.1 Allergy status to other antibiotic agents; Z91.040 Latex allergy status; Z88.8 Allergy status to other drugs, medicaments and biological substances; Z91.048 Other nonmedicinal substance allergy status; K59.03 Drug induced constipation; T40.2X5A Adverse effect of other opioids, initial encounter
CPT/HCPCS: 36415; 74022; 80048; 80076; 80307; 81001; 82553; 83690; 84484; 85025; 85610; 85730; 87040; 87086; 93005; 96365; 96375; J0696; J1170; J2212; J2405; J2550; J3010; J7030; Q0163; Q0167; S0028; 99285-25; G0479

== ENCOUNTER → 2018-08-28 | Day surgery (SDC) | payer MEDICARE ==
[~2018-08-28] MED LIST changes: +CEPH-264 PO; +DRON5CAP PO; -HYDR-2766 PO; +HYDR-2769 PO; +IV RINGERS,LACTATED 1000ML 1,000 ML IV SCH; +LIDOCAINE 1% PF 2 ML VIAL. ID PRN; +LIDOCAINE 2% PF 5 ML VIAL. ONE; -LINA290C PO; +LINZESS290 MCG PO; +MIDAZOLAM HCL/PF 2 MG/2 ML VIAL. IV PRN; -OXYC-328 PO; +OXYC1TAB22 PO; -PANT40TA3 PO; +PANT40TA77 PO; +PROPOFOL 20 ML IV ONE; +fentaNYL PF VIAL 100 MCG/2 ML VIAL IV PRN
[2018-08-28 09:07] VITALS: BP 153/60
== END ==
LOC: ENDOS 07:48
PROVIDERS: ATTEND Internal Medicine Gastroenterology
DX: K29.50 Unspecified chronic gastritis without bleeding (principal); K44.9 Diaphragmatic hernia without obstruction or gangrene; Z79.82 Long term (current) use of aspirin; Z98.890 Other specified postprocedural states; Z86.010 Personal history of colon polyps; Z88.8 Allergy status to other drugs, medicaments and biological substances; Z88.1 Allergy status to other antibiotic agents; Z91.040 Latex allergy status; Z90.49 Acquired absence of other specified parts of digestive tract; Z90.710 Acquired absence of both cervix and uterus
CPT/HCPCS: 43235; J0690; J2001; J2704

== ENCOUNTER 2018-12-17 22:16 | Inpatient (IN) | payer MEDICARE ==
[~2018-12-17] VITALS: Ht 160 cm; Wt 74.0 kg
[~2018-12-17 22:16] MED LIST changes: +DOCU-109 PO; -IV RINGERS,LACTATED 1000ML 1,000 ML IV SCH; +LEVO5TAB2 PO; -LIDOCAINE 1% PF 2 ML VIAL. ID PRN; -LIDOCAINE 2% PF 5 ML VIAL. ONE; +MECL25TA3 PO; -MIDAZOLAM HCL/PF 2 MG/2 ML VIAL. IV PRN; +NITR0.4T22 SL; +PROM12.58 PO; -PROPOFOL 20 ML IV ONE; -fentaNYL PF VIAL 100 MCG/2 ML VIAL IV PRN
[2018-12-17 22:52] LABS: BILIRUBIN,URINE SMALL (NEG); CLARITY,URINE CLEAR; COLOR,URINE YELLOW; NITRITE,URINE NEGATIVE (NEG); PH,URINE 5.5; PROTEIN,URINE NEGATIVE (NEG-TRACE); UROBILINOGEN,URINE 0.2 mg/dL (0.2 mg/dL)
--- NOTE | 2018-12-17 22:56 | PHYS DOC ---
Past Medical History Past Medical History: Anxiety, Arthritis, Depression, High Cholesterol, Hypertension, Other Additional Past Medical Histor: psuedo seizures, sleep apnea, PTSD, RLS, esophageal rupture, Past Surgical History: Appendectomy, Cholecystectomy, , Hysterectomy, Tonsillectomy, Other Additional Past Surgical Histo: fundaplication GASTRIC TUBE Alcohol Use: Rarely Drug Use: None Adult General Chief Complaint Chief Complaint: MULTIPLE COMPLAINTS HPI HPI Patient is a 58 year old female who presents with complaining of bladder infection and infection of PEG tube and nausea and abdominal pain. Patient has had PEG tube placement for complication of esophageal rupture in 2010. The last PEG tube placement was in August [address] Coleman the surgeon in this hospital. Patient complaining of urinary frequency and dysuria for the last 2 weeks and currently taking Keflex and Bactrim without improvement of her condition. Patient states she had a fever of 103 five days ago. Patient also complaining of greenish discharge around her PEG tube for the last few days and her GI specialist wants evaluation for this problem. Patient complaining of abdominal pain rated her pain 9/10. She denies diarrhea, focal neuro deficit, sick contact. Review of Systems Review of Systems Constitutional: Reports fever Eyes: Denies change in visual acuity, redness, or eye pain [] HENT: Denies nasal congestion or sore throat [] Respiratory: Denies cough or shortness of breath [] Cardiovascular: No additional information not addressed in HPI [] GI: Reports abdominal pain, nausea. : Denies dysuria or hematuria [] Musculoskeletal: Denies back pain or joint pain [] Integument: Denies rash or skin lesions [] Neurologic: Denies headache, focal weakness or sensory changes [] Endocrine: Denies polyuria or polydipsia [] All other systems were reviewed and found to be within normal limits, except as documented in this note. Current Medications Current Medications Current Medications Medications (Trade) Dose Ordered Sig/Leatha Start Time Stop Time Status Last Admin Dose Admin Famotidine (Pepcid Vial) 20 mg 1X ONCE 12/17/18 23:00 12/17/18 23:01 DC 12/17/18 23:42 20 MG Fentanyl Citrate (Fentanyl 2ml Vial) 50 mcg 1X ONCE 12/17/18 23:00 12/17/18 23:01 DC 12/17/18 23:42 50 MCG Ondansetron HCl (Zofran) 4 mg 1X ONCE 12/17/18 23:00 12/17/18 23:01 DC 12/17/18 23:42 4 MG Sodium Chloride 1,000 ml @ 1,000 mls/hr Q1H 12/17/18 23:00 12/17/18 23:59 DC 12/17/18 23:43 1,000 MLS/HR Allergies Allergies Allergies Coded Allergies Type Severity Reaction Last Updated Verified Estrogens Allergy Severe LOSS OF VISION 09/15/18 Yes Latex, Natural Rubber Allergy Intermediate RASH 09/15/18 Yes clarithromycin Allergy Intermediate rash 09/15/18 Yes ferrous gluconate Allergy Intermediate 09/15/18 Yes labetalol Allergy Intermediate itching 09/15/18 Yes levofloxacin Allergy Intermediate rash 09/15/18 Yes morphine Allergy Intermediate rash 09/15/18 Yes paroxetine Allergy Intermediate RASH/VOMITING 09/15/18 Yes I S O L A T I O N *CONTACT* Allergy Unknown 09/24/18 Yes amoxicillin Adverse Reaction Intermediate VOMITING 09/15/18 Yes clavulanic acid Adverse Reaction Intermediate VOMITING 09/15/18 Yes quinine Adverse Reaction Intermediate diarrhea 09/15/18 Yes Physical Exam Physical Exam Constitutional: Well developed, well nourished, mild distress, non-toxic appearance, anxious. [] HENT: Normocephalic, atraumatic. Eyes: PERRLA, EOMI, conjunctiva normal, no discharge. [] Neck: Normal range of motion, no tenderness, supple, no stridor. [] Cardiovascular:Heart rate regular rhythm, no murmur [] Lungs & Thorax: Bilateral breath sounds clear to auscultation [] Abdomen: Bowel sounds normal, soft, no tenderness, no masses, no pulsatile masses, PEG tube in place without erythema or discharge Skin: Warm, dry, no erythema, no rash. [] Back: No tenderness, no CVA tenderness. [] Extremities: No tenderness, no cyanosis, no clubbing, ROM intact, no edema. [] Neurologic: Alert and oriented X 3, no focal deficits noted. [] Psychologic: Affect anxious, judgement normal, mood normal. [] Current Patient Data Vital Signs Vital Signs Date Time Temp Pulse Resp B/P (MAP) Pulse Ox O2 Delivery O2 Flow Rate FiO2 12/17/18 23:25 78 117/60 (79) 97 Room Air 12/17/18 22:20 97.9 18 97.9 Lab Values Laboratory Tests Test 12/17/18 22:29 12/17/18 23:20 Urine Collection Type Unknown Urine Color Yellow Urine Clarity Clear Urine pH 5.5 Urine Specific [place] >=1.030 Urine Protein Negative mg/dL (NEG-TRACE) Urine Glucose (UA) Negative mg/dL (NEG) Urine Ketones (Stick) Negative mg/dL (NEG) Urine Blood Negative (NEG) Urine Nitrite Negative (NEG) Urine Bilirubin Small (NEG) Urine Urobilinogen Dipstick 0.2 mg/dL (0.2 mg/dL) Urine Leukocyte Esterase Negative (NEG) Urine RBC 0 /HPF (0-2) Urine WBC 1-4 /HPF (0-4) Urine Squamous Epithelial Cells Few /LPF Urine Bacteria Few /HPF (0-FEW) Urine Mucus Marked /LPF White Blood Count 6.1 x10^3/uL (4.0-11.0) Red Blood Count 4.08 x10^6/uL (3.50-5.40) Hemoglobin 10.5 g/dL (12.0-15.5) L Hematocrit 31.9 % (36.0-47.0) L Mean Corpuscular Volume 78 fL (79-100) L Mean Corpuscular Hemoglobin 26 pg (25-35) Mean Corpuscular Hemoglobin Concent 33 g/dL (31-37) Red Cell Distribution Width 16.3 % (11.5-14.5) H Platelet Count 222 x10^3/uL (140-400) Neutrophils (%) (Auto) 54 % (31-73) Lymphocytes (%) (Auto) 36 % (24-48) Monocytes (%) (Auto) 5 % (0-9) Eosinophils (%) (Auto) 3 % (0-3) Basophils (%) (Auto) 1 % (0-3) Neutrophils # (Auto) 3.3 x10^3/uL (1.8-7.7) Lymphocytes # (Auto) 2.2 x10^3/uL (1.0-4.8) Monocytes # (Auto) 0.3 x10^3/uL (0.0-1.1) Eosinophils # (Auto) 0.2 x10^3/uL (0.0-0.7) Basophils # (Auto) 0.1 x10^3/uL (0.0-0.2) Sodium Level 142 mmol/L (136-145) Potassium Level 4.0 mmol/L (3.5-5.1) Chloride Level 107 mmol/L (98-107) Carbon Dioxide Level 25 mmol/L (21-32) Anion Gap 10 (6-14) Blood Urea Nitrogen 15 mg/dL (7-20) Creatinine 0.7 mg/dL (0.6-1.0) Estimated GFR (Cockcroft-Gault) 86.2 BUN/Creatinine Ratio 21 (6-20) H Glucose Level 109 mg/dL (70-99) H Lactic Acid Level 2.1 mmol/L (0.4-2.0) H Calcium Level 9.0 mg/dL (8.5-10.1) Total Bilirubin 0.2 mg/dL (0.2-1.0) Aspartate Amino Transferase (AST) 13 U/L (15-37) L Alanine Aminotransferase (ALT) 13 U/L (14-59) L Alkaline Phosphatase 65 U/L (46-116) Total Protein 7.2 g/dL (6.4-8.2) Albumin 3.5 g/dL (3.4-5.0) Albumin/Globulin Ratio 0.9 (1.0-1.7) L Lipase 123 U/L (73-393) Laboratory Tests 12/17/18 23:20 Laboratory Tests 12/17/18 23:20 EKG EKG [] Radiology/Procedures Radiology/Procedures [] Course & Med Decision Making Course & Med Decision Making Pertinent Labs reviewed. (See chart for details) Evaluation of patient in ER showed 58-year-old female patient with multiple medical problem and complaining of nausea and abdominal pain and UTI symptom. Patient had unremarkable physical exam. Patient had elevation of lactic 2.1 and treated with IV fluid and antibiotic repeated lactic acid 1.1.Patient requiring admission for further evaluation and treatment. Discussed with Dr. Lamar who is in agreement with admission. Discussed findings and plan with patient and family, who acknowledge understanding and agreement. Dragon Disclaimer Dragon Disclaimer This electronic medical record was generated, in whole or in part, using a voice recognition dictation system. Departure Departure Impression: Primary Impression: Abdominal pain Additional Impressions: Status post gastrostomy Gastroparesis Nausea Elevated lactic acid level Disposition: 09 ADMITTED INPATIENT (at 2320) Admitting Physician: AYUSH (Dr. Lamar accepted admission) Condition: IMPROVED Referrals: NO PCP (PCP) Date and Time of Reassessment Date: Dec 17, 2018 Time: 23:30 Fluid Challenge Is the fluid challenge complet: No IBW Target Volume Used: Yes BMI > 30: No Vital Signs Vital Signs: Vital Signs Date Time Temp Pulse Resp B/P (MAP) Pulse Ox O2 Delivery O2 Flow Rate FiO2 12/17/18 23:25 78 117/60 (79) 97 Room Air 12/17/18 22:20 97.9 18 97.9 Temperature Source: Oral Respirations Respiratory Pattern: Normal Cardiovascular Pulse Rhythm: Regular Heart: Nml rate, reg. rhythm Lung Sounds Breath Sounds: Clear Capillary Refil Capillary Refill: Rt Hand < 3 seconds Peripheral Pulse Pulse Location: Radial Pulse Strength: Normal (2+) Pulse Assessment Method: NIBP Integumentary Skin Moisture: Dry Problem Qualifiers Primary Impression: Abdominal pain Abdominal location: upper abdomen, unspecified Qualified Codes: R10.10 - Upper abdominal pain, unspecified VICTOR MANUEL SIMMONS MD Dec 17, 2018 22:56
[2018-12-17 23:00] LABS: BACTERIA,URINE FEW /HPF (0-FEW); RBC,URINE 0 /HPF (0-2); SQUAMOUS EPITHELIAL CELL,UR FEW /LPF
[2018-12-17] MEDS ORDERED: ONDANSETRON PF 4 MG/2 ML VIAL. IV ONE (23:00)
[2018-12-17] MEDS ORDERED: fentaNYL PF VIAL 100 MCG/2 ML VIAL IV ONE (23:00)
[2018-12-17] MEDS ORDERED: FAMOTIDINE 20 MG/2 ML VIAL IVP ONE (23:00)
[2018-12-17] MEDS ORDERED: IV NORMAL SALINE 1000ML BAG 1,000 ML IV SCH (23:00)
[2018-12-17 23:35] LABS: BASO # 0.1 x10^3/uL (0.0-0.2); BASO % 1 % (0-3); EOS # 0.2 x10^3/uL (0.0-0.7); EOS % 3 % (0-3); HEMATOCRIT 31.9 % (36.0-47.0); HEMOGLOBIN 10.5 g/dL (12.0-15.5); LYMPH # 2.2 x10^3/uL (1.0-4.8); LYMPH % 36 % (24-48); MEAN CORPUSCULAR HEMOGLOBIN 26 pg (25-35); MEAN CORPUSCULAR HGB CONC 33 g/dL (31-37); MEAN CORPUSCULAR VOLUME 78 fL (79-100); MONO # 0.3 x10^3/uL (0.0-1.1); MONO % 5 % (0-9); NEUT # 3.3 x10^3/uL (1.8-7.7); NEUT % 54 % (31-73); PLATELET COUNT 222 x10^3/uL (140-400); RED BLOOD COUNT 4.08 x10^6/uL (3.50-5.40); RED CELL DISTRIBUTION WIDTH 16.3 % (11.5-14.5); WHITE BLOOD COUNT 6.1 x10^3/uL (4.0-11.0)
[2018-12-17 23:44] LABS: CREATININE 0.7 mg/dL (0.6-1.0); GFR 86.2
[2018-12-17 23:49] LABS: ALBUMIN 3.5 g/dL (3.4-5.0); ALBUMIN/GLOBULIN RATIO 0.9 (1.0-1.7); TOTAL BILIRUBIN 0.2 mg/dL (0.2-1.0); TOTAL PROTEIN 7.2 g/dL (6.4-8.2)
[2018-12-18] VITALS (7 sets, daily range): BP systolic 89–126; BP diastolic 36–69
[2018-12-18] MEDS ORDERED: VANCOMYCIN 1GM IVPB FOR OMNI 250 ML IV ONE (00:15)
[2018-12-18] MEDS ORDERED: VANCOMYCIN PER PHARMACY MC PRN (00:15)
[2018-12-18] MEDS ORDERED: cefTRIAXone IV Push 1 GM VIAL. IVP ONE (00:30)
[2018-12-18] MEDS ORDERED: VANCOMYCIN 1.75 GM in IV NORMAL SALINE 500ML BAG 500 ML IV ONE (00:30)
[2018-12-18] MEDS ORDERED: IV NORMAL SALINE 1000ML BAG 1,000 ML IV ONE (00:30)
[2018-12-18] MEDS ORDERED: ONDANSETRON PF 4 MG/2 ML VIAL. IVP PRN (02:00)
[2018-12-18] MEDS ORDERED: IV NORMAL SALINE 1000ML BAG 1,000 ML IV SCH ×2 (02:00→03:36)
[2018-12-18] MEDS: diphenhydrAMINE 50 MG/ML VIAL IVP PRN ×2 (02:13→08:45)
--- NOTE | 2018-12-18 02:45 | NUR ---
Patient arrived to the fourth floor Room 408 at 0105. Report received from RN Kelsie in the emergency department. Patient currently complains of pain rating of 8 out of 10 in the abdominal region. Patient call light placed within reach and bed placed in lowest position and locked. This RN will continue to monitor the patient.
[2018-12-18] MEDS: fentaNYL PF VIAL 100 MCG/2 ML VIAL IVP PRN ×5 (03:27→20:16)
[2018-12-18] MEDS ORDERED: ONDANSETRON PF 4 MG/2 ML VIAL. IV PRN (03:45)
[2018-12-18] MEDS ORDERED: fentaNYL PF VIAL 100 MCG/2 ML VIAL IV PRN (03:45)
--- NOTE | 2018-12-18 08:19 | PDOC2 ---
KRISSYHUGH [employer] 12/18/18 0819: CONSULT Date of Consult Date of Consult DATE: 12/18/18 TIME: 08:16 Reason for Consult Reason for Consult: drainage from g tube Referring Physician Referring Physician: ER Identification/Chief Complaint Chief Complaint drainage from g tube site Source Source: Chart review, Patient History of Present Illness Reason for Visit: Recent UTI and abx use. Fevers, chills, and abdominal pain at g tube site. Purulent drainage around site. Now improved erythema and less drainage, spinner tender. G tube was placed in August by Dr Quach Past Medical History Pulmonary: Other CENTRAL NERVOUS SYSTEM: CVA GI: GERD, Other Psych: Anxiety, Depression Rheumatologic: Fibromyalgia Past Surgical History Past Surgical History: Appendectomy, Cholecystectomy, Hysterectomy, Other Family History Family History: Cancer Social History ALCOHOL: none Drugs: None Lives: with Family Current Problem List Problem List Problems Medical Problems: (1) Elevated lactic acid level Status: Acute Current Medications Current Medications Current Medications Sodium Chloride 1,000 ml @ 1,000 mls/hr Q1H IV Last administered on 12/17/18at 23:43; Start 12/17/18 at 23:00; Stop 12/17/18 at 23:59; Status DC Fentanyl Citrate (Fentanyl 2ml Vial) 50 mcg 1X ONCE IV Last administered on 12/17/18at 23:42; Start 12/17/18 at 23:00; Stop 12/17/18 at 23:01; Status DC Ondansetron HCl (Zofran) 4 mg 1X ONCE IV Last administered on 12/17/18at 23:42; Start 12/17/18 at 23:00; Stop 12/17/18 at 23:01; Status DC Famotidine (Pepcid Vial) 20 mg 1X ONCE IVP Last administered on 12/17/18at 23:42; Start 12/17/18 at 23:00; Stop 12/17/18 at 23:01; Status DC Sodium Chloride 1,000 ml @ 1,000 mls/hr 1X ONCE IV Last administered on 12/18/18at 00:27; Start 12/18/18 at 00:30; Stop 12/18/18 at 01:29; Status DC Ceftriaxone Sodium (Rocephin) 1 gm 1X ONCE IVP Last administered on 12/18/18at 00:27; Start 12/18/18 at 00:30; Stop 12/18/18 at 00:31; Status DC Vancomycin HCl 250 ml @ 250 mls/hr 1X ONCE IV ; Start 12/18/18 at 00:15; Stop 12/18/18 at 01:14; Status UNV Vancomycin HCl 1.75 gm/Sodium Chloride 500 ml @ 250 mls/hr 1X ONCE IV Last administered on 12/18/18at 02:13; Start 12/18/18 at 00:30; Stop 12/18/18 at 02:29; Status DC Vancomycin HCl (Vanco Per Pharmacy) 1 each PRN DAILY PRN MC SEE COMMENTS; Start 12/18/18 at 00:15; Status Cancel Fentanyl Citrate (Fentanyl 2ml Vial) 50 mcg PRN Q2HR PRN IVP SEVERE PAIN 7-10 Last administered on 12/18/18at 07:38; Start 12/18/18 at 02:00 Diphenhydramine HCl (Benadryl) 12.5 mg PRN Q6HRS PRN IVP ITCHING Last administered on 12/18/18at 02:13; Start 12/18/18 at 02:00 Ondansetron HCl (Zofran) 4 mg PRN Q4HRS PRN IVP NAUSEA/VOMITING 1ST CHOICE; Start 12/18/18 at 02:00 Sodium Chloride 1,000 ml @ 80 mls/hr [id number] IV Last administered on 12/18/18at 02:14; Start 12/18/18 at 02:00 Influenza Virus Vaccine Quadrival (Afluria Quad 2019-20 (3yr Up) Syringe) 0.5 ml ONCE ONCE VAX IM ; Start 12/18/18 at 09:00; Stop 12/18/18 at 09:01 Ondansetron HCl (Zofran) 4 mg PRN Q8HRS PRN IV NAUSEA/VOMITING; Start 12/18/18 at 03:45; Stop 12/18/18 at 08:00; Status UNV Fentanyl Citrate (Fentanyl 2ml Vial) 50 mcg Q2HR PRN IV PAIN; Start 12/18/18 at 03:45; Stop 12/18/18 at 08:00; Status UNV Sodium Chloride 1,000 ml @ 100 mls/hr Q10H IV ; Start 12/18/18 at 03:36; Stop 12/19/18 at 03:35; Status UNV Active Scripts Active Colace (Docusate Sodium) 100 Mg Capsule 100 Mg PO DAILY Hydrocodone-Apap 10-325 (Hydrocodone Bit/Acetaminophen) 1 Each Tablet 1 Tab PO PRN Q6HRS PRN Protonix (Pantoprazole Sodium) 40 Mg Tablet. 1 Tab PO BID Reported Levocetirizine Dihydrochloride 5 Mg Tablet 1 Tab PO DAILY NITROGLYCERIN SubLingual (Nitroglycerin) 0.4 Mg Tab.subl 1 Tab SL UD Meclizine Hcl 25 Mg Tablet 1 Tab PO PRN Q4HRS PRN Promethazine Hcl 12.5 Mg Tablet 1 Tab PO Q6HRS Marinol (Dronabinol) 5 Mg Capsule 5 Mg PO PRN 6X PER DAY Aspir 81 (Aspirin) 81 Mg Tablet. 1 Tab PO DAILY Trazodone Hcl 300 Mg Tablet 1 Tab PO QHS Linzess (Linaclotide) 290 Mcg Capsule 290 Mcg PO DAILY Metoprolol Tartrate 25 Mg Tablet 0.5 Tab PO BID Lisinopril 10 Mg Tablet 1 Tab PO DAILY Zocor (Simvastatin) 40 Mg Tablet 1 Tab PO QHS Requip (Ropinirole Hcl) 1 Mg Tablet 1 Mg PO QHS Xanax (Alprazolam) 0.5 Mg Tablet 0.5 Mg PO TID PRN Effexor Xr (Venlafaxine Hcl) 150 Mg Cap.er.24h 1 Cap PO DAILY Allergies Allergies: Coded Allergies: Estrogens (Verified Allergy, Severe, LOSS OF VISION, 09/15/18) Latex, Natural Rubber (Verified Allergy, Intermediate, RASH, 09/15/18) clarithromycin (Verified Allergy, Intermediate, rash, 09/15/18) ferrous gluconate (Verified Allergy, Intermediate, 09/15/18) labetalol (Verified Allergy, Intermediate, itching, 09/15/18) levofloxacin (Verified Allergy, Intermediate, rash, 09/15/18) morphine (Verified Allergy, Intermediate, rash, 09/15/18) paroxetine (Verified Allergy, Intermediate, RASH/VOMITING, 09/15/18) I S O L A T I O N *CONTACT* (Verified Allergy, Unknown, 09/24/18) mrsa amoxicillin (Verified Adverse Reaction, Intermediate, VOMITING, 09/15/18) clavulanic acid (Verified Adverse Reaction, Intermediate, VOMITING, 09/15/18) quinine (Verified Adverse Reaction, Intermediate, diarrhea, 09/15/18) ROS General: YES: Chills, Other (+fevers ) PSYCHOLOGICAL ROS: No: Anxiety, Depression Eyes: No Blurry vision, No Double vision HEENT: No: Heacaches, Sore Throat Respiratory: No: Cough, Shortness of breath Cardiovascular: No Chest Pain, No Palpitations Gastrointestinal: Yes Other (see hpi) Genitourinary: No Dysuria, No Retention Musculoskeletal: No Joint Pain, No Muscle Pain Neurological: No Impaired Coord/balance, No Numbness/Tingling Skin: No Pruritus, No Rash Physical Exam General: Alert, Oriented X3, Cooperative, No acute distress HEENT: PERRLA, Mucous membr. moist/pink Lungs: Clear to auscultation, Normal air movement Heart: Regular rate, Normal S1, Normal S2, No murmurs Abdomen: Soft, Other (mild erythema around g tube site, scant purulent drainage ) Extremities: No clubbing, No cyanosis Skin: No rashes, No breakdown Neuro: Normal gait, Normal speech Psych/Mental Status: Mental status NL, Mood NL MUSCULOSKELETAL: No deformity, No swelling Vitals VITALS Vital Signs Date Time Temp Pulse Resp B/P (MAP) Pulse Ox O2 Delivery O2 Flow Rate FiO2 12/18/18 07:38 Room Air 12/18/18 07:00 97.5 69 18 113/56 (75) 97 97.5 Labs Labs Laboratory Tests Test 12/17/18 22:29 12/17/18 23:20 12/18/18 03:00 Urine Collection Type Unknown Urine Color Yellow Urine Clarity Clear Urine pH 5.5 Urine Specific [place] >=1.030 Urine Protein Negative mg/dL (NEG-TRACE) Urine Glucose (UA) Negative mg/dL (NEG) Urine Ketones (Stick) Negative mg/dL (NEG) Urine Blood Negative (NEG) Urine Nitrite Negative (NEG) Urine Bilirubin Small (NEG) Urine Urobilinogen Dipstick 0.2 mg/dL (0.2 mg/dL) Urine Leukocyte Esterase Negative (NEG) Urine RBC 0 /HPF (0-2) Urine WBC 1-4 /HPF (0-4) Urine Squamous Epithelial Cells Few /LPF Urine Bacteria Few /HPF (0-FEW) Urine Mucus Marked /LPF White Blood Count 6.1 x10^3/uL (4.0-11.0) Red Blood Count 4.08 x10^6/uL (3.50-5.40) Hemoglobin 10.5 g/dL (12.0-15.5) Hematocrit 31.9 % (36.0-47.0) Mean Corpuscular Volume 78 fL (79-100) Mean Corpuscular Hemoglobin 26 pg (25-35) Mean Corpuscular Hemoglobin Concent 33 g/dL (31-37) Red Cell Distribution Width 16.3 % (11.5-14.5) Platelet Count 222 x10^3/uL (140-400) Neutrophils (%) (Auto) 54 % (31-73) Lymphocytes (%) (Auto) 36 % (24-48) Monocytes (%) (Auto) 5 % (0-9) Eosinophils (%) (Auto) 3 % (0-3) Basophils (%) (Auto) 1 % (0-3) Neutrophils # (Auto) 3.3 x10^3/uL (1.8-7.7) Lymphocytes # (Auto) 2.2 x10^3/uL (1.0-4.8) Monocytes # (Auto) 0.3 x10^3/uL (0.0-1.1) Eosinophils # (Auto) 0.2 x10^3/uL (0.0-0.7) Basophils # (Auto) 0.1 x10^3/uL (0.0-0.2) Sodium Level 142 mmol/L (136-145) Potassium Level 4.0 mmol/L (3.5-5.1) Chloride Level 107 mmol/L (98-107) Carbon Dioxide Level 25 mmol/L (21-32) Anion Gap 10 (6-14) Blood Urea Nitrogen 15 mg/dL (7-20) Creatinine 0.7 mg/dL (0.6-1.0) Estimated GFR (Cockcroft-Gault) 86.2 BUN/Creatinine Ratio 21 (6-20) Glucose Level 109 mg/dL (70-99) Lactic Acid Level 2.1 mmol/L (0.4-2.0) 1.1 mmol/L (0.4-2.0) Calcium Level 9.0 mg/dL (8.5-10.1) Total Bilirubin 0.2 mg/dL (0.2-1.0) Aspartate Amino Transf (AST/SGOT) 13 U/L (15-37) Alanine Aminotransferase (ALT/SGPT) 13 U/L (14-59) Alkaline Phosphatase 65 U/L (46-116) Total Protein 7.2 g/dL (6.4-8.2) Albumin 3.5 g/dL (3.4-5.0) Albumin/Globulin Ratio 0.9 (1.0-1.7) Lipase 123 U/L (73-393) Laboratory Tests Test 12/17/18 22:29 12/17/18 23:20 12/18/18 03:00 Urine Collection Type Unknown Urine Color Yellow Urine Clarity Clear Urine pH 5.5 Urine Specific [place] >=1.030 Urine Protein Negative mg/dL (NEG-TRACE) Urine Glucose (UA) Negative mg/dL (NEG) Urine Ketones (Stick) Negative mg/dL (NEG) Urine Blood Negative (NEG) Urine Nitrite Negative (NEG) Urine Bilirubin Small (NEG) Urine Urobilinogen Dipstick 0.2 mg/dL (0.2 mg/dL) Urine Leukocyte Esterase Negative (NEG) Urine RBC 0 /HPF (0-2) Urine WBC 1-4 /HPF (0-4) Urine Squamous Epithelial Cells Few /LPF Urine Bacteria Few /HPF (0-FEW) Urine Mucus Marked /LPF White Blood Count 6.1 x10^3/uL (4.0-11.0) Red Blood Count 4.08 x10^6/uL (3.50-5.40) Hemoglobin 10.5 g/dL (12.0-15.5) Hematocrit 31.9 % (36.0-47.0) Mean Corpuscular Volume 78 fL (79-100) Mean Corpuscular Hemoglobin 26 pg (25-35) Mean Corpuscular Hemoglobin Concent 33 g/dL (31-37) Red Cell Distribution Width 16.3 % (11.5-14.5) Platelet Count 222 x10^3/uL (140-400) Neutrophils (%) (Auto) 54 % (31-73) Lymphocytes (%) (Auto) 36 % (24-48) Monocytes (%) (Auto) 5 % (0-9) Eosinophils (%) (Auto) 3 % (0-3) Basophils (%) (Auto) 1 % (0-3) Neutrophils # (Auto) 3.3 x10^3/uL (1.8-7.7) Lymphocytes # (Auto) 2.2 x10^3/uL (1.0-4.8) Monocytes # (Auto) 0.3 x10^3/uL (0.0-1.1) Eosinophils # (Auto) 0.2 x10^3/uL (0.0-0.7) Basophils # (Auto) 0.1 x10^3/uL (0.0-0.2) Sodium Level 142 mmol/L (136-145) Potassium Level 4.0 mmol/L (3.5-5.1) Chloride Level 107 mmol/L (98-107) Carbon Dioxide Level 25 mmol/L (21-32) Anion Gap 10 (6-14) Blood Urea Nitrogen 15 mg/dL (7-20) Creatinine 0.7 mg/dL (0.6-1.0) Estimated GFR (Cockcroft-Gault) 86.2 BUN/Creatinine Ratio 21 (6-20) Glucose Level 109 mg/dL (70-99) Lactic Acid Level 2.1 mmol/L (0.4-2.0) 1.1 mmol/L (0.4-2.0) Calcium Level 9.0 mg/dL (8.5-10.1) Total Bilirubin 0.2 mg/dL (0.2-1.0) Aspartate Amino Transf (AST/SGOT) 13 U/L (15-37) Alanine Aminotransferase (ALT/SGPT) 13 U/L (14-59) Alkaline Phosphatase 65 U/L (46-116) Total Protein 7.2 g/dL (6.4-8.2) Albumin 3.5 g/dL (3.4-5.0) Albumin/Globulin Ratio 0.9 (1.0-1.7) Lipase 123 U/L (73-393) Assessment/Plan Assessment/Plan will ask IR to exchange out g tube WILLIAM QUACH MD 12/18/18 5879: CONSULT Assessment/Plan Assessment/Plan Pt seen and examined. Agree with Ms. Rey's note Pt with recent complicated UTI with hemeturia, treated with abx worsening with PO abx. Presented to ER and feels better with G-tube changeout, which has some purulent drainage Feels better now Give above, favor ID consult for selection and duration of abx. No surgical plans. Thanks for consult! HUGH REY APRN Dec 18, 2018 08:19 WILLIAM QUACH MD Dec 18, 2018 13:04
[2018-12-18] MEDS ORDERED: ALPRAZolam 0.5 MG TABLET PO PRN (08:30)
[2018-12-18] MEDS ORDERED: IOHEXOL 240 MG/ML 50ML VIAL. ONE (08:37)
[2018-12-18] MEDS ORDERED: MECLIZINE HCL 12.5 MG TABLET. PO PRN ×2 (08:45)
[2018-12-18] MEDS ORDERED: FLU VAX QS 2019-20 (36MOS+)/PF 0.5 ML SYRINGE. VAX IM ONE (09:00)
[2018-12-18] MEDS: LISINOPRIL 10 MG TABLET PO SCH (09:00)
[2018-12-18] MEDS ORDERED: IOHEXOL 240 MG/ML 50ML VIAL. IJ ONE (09:00)
[2018-12-18] MEDS ORDERED: CONTRAST GIVEN. MC PRN (09:00)
--- NOTE | 2018-12-18 09:01 | NUR ---
IP: patient has hx of +MRSA screen, requires contact precautions until 2 negative results 7 days apart.
[2018-12-18] MEDS ORDERED: traMADol 50 MG TABLET PO PRN (10:15)
--- NOTE | 2018-12-18 10:22 | PDOC3 ---
Discharge Summary Visit Information Date of Admission: Dec 17, 2018 Date of Discharge: Dec 18, 2018 Admitting Diagnosis Comment: 1/ Leaking G tube - placed August 2018 for gastroparesis - replaced successfully tofay by IT (12/18) 2. Dysuria - recent abx UTI tx - cipro, pyridium, check urine cx - can ff up as OP 3. Obesity 4, Anxiety NOS 5. MIld cellulitis around G tube site - bacitracin, wound care (she can be anxious about it but it doesnt LOOK bad at all) PLAN: CIpro, IVF to consume, reg diet,. pyridium BAcitracin topical around G tibzain CAn go home later today when she feels ready and she feels like we have addressed all her concerns Brady Nugent Final Diagnosis Problems Medical Problems: (1) Elevated lactic acid level Status: Acute Brief Hospital Course Allergies Allergies Coded Allergies Type Severity Reaction Last Updated Verified Estrogens Allergy Severe LOSS OF VISION 09/15/18 Yes Latex, Natural Rubber Allergy Intermediate RASH 09/15/18 Yes clarithromycin Allergy Intermediate rash 09/15/18 Yes ferrous gluconate Allergy Intermediate 09/15/18 Yes labetalol Allergy Intermediate itching 09/15/18 Yes levofloxacin Allergy Intermediate rash 09/15/18 Yes morphine Allergy Intermediate rash 09/15/18 Yes paroxetine Allergy Intermediate RASH/VOMITING 09/15/18 Yes I S O L A T I O N *CONTACT* Allergy Unknown 09/24/18 Yes amoxicillin Adverse Reaction Intermediate VOMITING 09/15/18 Yes clavulanic acid Adverse Reaction Intermediate VOMITING 09/15/18 Yes quinine Adverse Reaction Intermediate diarrhea 09/15/18 Yes Vital Signs Vital Signs Date Time Temp Pulse Resp B/P (MAP) Pulse Ox O2 Delivery O2 Flow Rate FiO2 12/18/18 08:08 Room Air 12/18/18 07:00 97.5 69 18 113/56 (06) 97 97.5 Lab Results Laboratory Tests Test 12/17/18 22:29 12/17/18 23:20 12/18/18 03:00 Urine Collection Type Unknown Urine Color Yellow Urine Clarity Clear Urine pH 5.5 Urine Specific [place] >=1.030 Urine Protein Negative mg/dL (NEG-TRACE) Urine Glucose (UA) Negative mg/dL (NEG) Urine Ketones (Stick) Negative mg/dL (NEG) Urine Blood Negative (NEG) Urine Nitrite Negative (NEG) Urine Bilirubin Small (NEG) Urine Urobilinogen Dipstick 0.2 mg/dL (0.2 mg/dL) Urine Leukocyte Esterase Negative (NEG) Urine RBC 0 /HPF (0-2) Urine WBC 1-4 /HPF (0-4) Urine Squamous Epithelial Cells Few /LPF Urine Bacteria Few /HPF (0-FEW) Urine Mucus Marked /LPF White Blood Count 6.1 x10^3/uL (4.0-11.0) Red Blood Count 4.08 x10^6/uL (3.50-5.40) Hemoglobin 10.5 g/dL (12.0-15.5) Hematocrit 31.9 % (36.0-47.0) Mean Corpuscular Volume 78 fL (79-100) Mean Corpuscular Hemoglobin 26 pg (25-35) Mean Corpuscular Hemoglobin Concent 33 g/dL (31-37) Red Cell Distribution Width 16.3 % (11.5-14.5) Platelet Count 222 x10^3/uL (140-400) Neutrophils (%) (Auto) 54 % (31-73) Lymphocytes (%) (Auto) 36 % (24-48) Monocytes (%) (Auto) 5 % (0-9) Eosinophils (%) (Auto) 3 % (0-3) Basophils (%) (Auto) 1 % (0-3) Neutrophils # (Auto) 3.3 x10^3/uL (1.8-7.7) Lymphocytes # (Auto) 2.2 x10^3/uL (1.0-4.8) Monocytes # (Auto) 0.3 x10^3/uL (0.0-1.1) Eosinophils # (Auto) 0.2 x10^3/uL (0.0-0.7) Basophils # (Auto) 0.1 x10^3/uL (0.0-0.2) Sodium Level 142 mmol/L (136-145) Potassium Level 4.0 mmol/L (3.5-5.1) Chloride Level 107 mmol/L (98-107) Carbon Dioxide Level 25 mmol/L (21-32) Anion Gap 10 (6-14) Blood Urea Nitrogen 15 mg/dL (7-20) Creatinine 0.7 mg/dL (0.6-1.0) Estimated GFR (Cockcroft-Gault) 86.2 BUN/Creatinine Ratio 21 (6-20) Glucose Level 109 mg/dL (70-99) Lactic Acid Level 2.1 mmol/L (0.4-2.0) 1.1 mmol/L (0.4-2.0) Calcium Level 9.0 mg/dL (8.5-10.1) Total Bilirubin 0.2 mg/dL (0.2-1.0) Aspartate Amino Transf (AST/SGOT) 13 U/L (15-37) Alanine Aminotransferase (ALT/SGPT) 13 U/L (14-59) Alkaline Phosphatase 65 U/L (46-116) Total Protein 7.2 g/dL (6.4-8.2) Albumin 3.5 g/dL (3.4-5.0) Albumin/Globulin Ratio 0.9 (1.0-1.7) Lipase 123 U/L (73-393) Laboratory Tests Test 12/17/18 22:29 12/17/18 23:20 12/18/18 03:00 Urine Collection Type Unknown Urine Color Yellow Urine Clarity Clear Urine pH 5.5 Urine Specific [place] >=1.030 Urine Protein Negative mg/dL (NEG-TRACE) Urine Glucose (UA) Negative mg/dL (NEG) Urine Ketones (Stick) Negative mg/dL (NEG) Urine Blood Negative (NEG) Urine Nitrite Negative (NEG) Urine Bilirubin Small (NEG) Urine Urobilinogen Dipstick 0.2 mg/dL (0.2 mg/dL) Urine Leukocyte Esterase Negative (NEG) Urine RBC 0 /HPF (0-2) Urine WBC 1-4 /HPF (0-4) Urine Squamous Epithelial Cells Few /LPF Urine Bacteria Few /HPF (0-FEW) Urine Mucus Marked /LPF White Blood Count 6.1 x10^3/uL (4.0-11.0) Red Blood Count 4.08 x10^6/uL (3.50-5.40) Hemoglobin 10.5 g/dL (12.0-15.5) Hematocrit 31.9 % (36.0-47.0) Mean Corpuscular Volume 78 fL (79-100) Mean Corpuscular Hemoglobin 26 pg (25-35) Mean Corpuscular Hemoglobin Concent 33 g/dL (31-37) Red Cell Distribution Width 16.3 % (11.5-14.5) Platelet Count 222 x10^3/uL (140-400) Neutrophils (%) (Auto) 54 % (31-73) Lymphocytes (%) (Auto) 36 % (24-48) Monocytes (%) (Auto) 5 % (0-9) Eosinophils (%) (Auto) 3 % (0-3) Basophils (%) (Auto) 1 % (0-3) Neutrophils # (Auto) 3.3 x10^3/uL (1.8-7.7) Lymphocytes # (Auto) 2.2 x10^3/uL (1.0-4.8) Monocytes # (Auto) 0.3 x10^3/uL (0.0-1.1) Eosinophils # (Auto) 0.2 x10^3/uL (0.0-0.7) Basophils # (Auto) 0.1 x10^3/uL (0.0-0.2) Sodium Level 142 mmol/L (136-145) Potassium Level 4.0 mmol/L (3.5-5.1) Chloride Level 107 mmol/L (98-107) Carbon Dioxide Level 25 mmol/L (21-32) Anion Gap 10 (6-14) Blood Urea Nitrogen 15 mg/dL (7-20) Creatinine 0.7 mg/dL (0.6-1.0) Estimated GFR (Cockcroft-Gault) 86.2 BUN/Creatinine Ratio 21 (6-20) Glucose Level 109 mg/dL (70-99) Lactic Acid Level 2.1 mmol/L (0.4-2.0) 1.1 mmol/L (0.4-2.0) Calcium Level 9.0 mg/dL (8.5-10.1) Total Bilirubin 0.2 mg/dL (0.2-1.0) Aspartate Amino Transf (AST/SGOT) 13 U/L (15-37) Alanine Aminotransferase (ALT/SGPT) 13 U/L (14-59) Alkaline Phosphatase 65 U/L (46-116) Total Protein 7.2 g/dL (6.4-8.2) Albumin 3.5 g/dL (3.4-5.0) Albumin/Globulin Ratio 0.9 (1.0-1.7) Lipase 123 U/L (73-393) Brief Hospital Course Ms. 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 IR has fixed the G tube today, and there is less erythema around the site, and she asks for a diet, I was about to dc her but she complains of urinary pain (recent abx for UTI BUT uA is clean), some BOV, headache etc, I am Rxing cipro, urine cx, pyridium, reg diet, IF she feels better later, she can go home Dw RN Raffi SHe had the abd pain, drainage around G tube and some redness around the site x 2 weeks - FIXED NOW by IR Discharge Information Condition at Discharge: Improved, Stable Disposition/Orders: D/C to Home Scheduled Aspirin (Aspir 81) 81 Mg Tablet., 1 TAB PO DAILY, #30 Ref 5 (Reported) Entered as Reported by: LAUREN BRAR on 11/07/162224 Last Action: HELD on 12/18/18825 by JENNIFER GRAFF Docusate Sodium (Colace) 100 Mg Capsule, 100 MG PO DAILY for constipation, #30 Prescribed by: WINDY CHAPIN on 09/25/1850 Last Action: Continued on 12/18/18825 by JENNIFER GRAFF Dronabinol (Marinol) 5 Mg Capsule, 5 MG PO PRN 6X PER DAY for NAUSEA, (Reported) Entered as Reported by: CAM MELCHOR on 01/22/171745 Last Action: HELD on 12/18/18825 by JENNIFER GRAFF Levocetirizine Dihydrochloride (Levocetirizine Dihydrochloride) 5 Mg Tablet, 1 TAB PO DAILY for ALLERGY, #30 Ref 3 (Reported) Entered as Reported by: IGNACIO MOSQUEDA on 09/14/181812 Last Action: Converted on 12/18/18825 by JENNIFER GRAFF Linaclotide (Linzess) 290 Mcg Capsule, 290 MCG PO DAILY for HELP STOMACH, (Reported) Entered as Reported by: LAUREN BRAR on 11/07/162224 Last Action: HELD on 12/18/18825 by JENNIFER GRAFF Lisinopril (Lisinopril) 10 Mg Tablet, 1 TAB PO DAILY, #30 Ref 5 (Reported) Entered as Reported by: LAUREN BRAR on 11/07/162224 Last Action: Continued on 12/18/18825 by JENNIFER GRAFF Metoprolol Tartrate (Metoprolol Tartrate) 25 Mg Tablet, 0.5 TAB PO BID, #180 Ref 1 (Reported) Entered as Reported by: LAUREN BRAR on 11/07/162224 Last Action: Continued on 12/18/18825 by JENNIFER GRAFF Nitroglycerin (NITROGLYCERIN SubLingual) 0.4 Mg Tab.subl, 1 TAB SL UD for CHEST PAIN NEEDED, #25 Ref 3 (Reported) Entered as Reported by: IGNACIO MOSQUEDA on 09/14/181811 Last Action: HELD on 12/18/18825 by JENNIFER GRAFF Pantoprazole Sodium (Protonix ) 40 Mg Tablet.dr, 1 TAB PO BID, #60 Ref 5 Prescribed by: LEIA REIS MD on 11/08/16 1359 Last Action: Continued on 12/18/18825 by JENNIFER GRAFF Promethazine Hcl (Promethazine Hcl) 12.5 Mg Tablet, 1 TAB PO Q6HRS for NAUSEA, #30 (Reported) Entered as Reported by: IGNACIO MOSQUEDA on 09/14/181810 Last Action: Continued on 12/18/18825 by JENNIFER GRAFF Ropinirole Hcl (Requip) 1 Mg Tablet, 1 MG PO QHS for restless leg syndrome, (Reported) Entered as Reported by: LAUREN BRAR on 11/07/162224 Last Action: Continued on 12/18/18825 by JENNIFER GRAFF Simvastatin (Zocor) 40 Mg Tablet, 1 TAB PO QHS, #90 Ref 3 (Reported) Entered as Reported by: LAUREN BRAR on 11/07/162224 Last Action: Continued on 12/18/18825 by JENNIFER GRAFF Trazodone Hcl (Trazodone Hcl) 300 Mg Tablet, 1 TAB PO QHS, #30 Ref 1 (Reported) Entered as Reported by: LAUREN BRAR on 11/07/162224 Last Action: Converted on 12/18/18825 by JENNIFER GRAFF Venlafaxine Hcl (Effexor Xr) 150 Mg Cap.er.24h, 1 CAP PO DAILY, #30 Ref 1 (Reported) Entered as Reported by: LAUREN BRAR on 11/07/162224 Last Action: Converted on 12/18/18825 by JENNIFER GRAFF Scheduled PRN Alprazolam (Xanax) 0.5 Mg Tablet, 0.5 MG PO TID PRN for ANXIETY / AGITATION, Ref 0 (Reported) Entered as Reported by: LAUREN BRAR on 11/07/162224 Last Action: Continued on 12/18/18825 by JENNIFER GRAFF Hydrocodone Bit/Acetaminophen (Hydrocodone-Apap 10-325 ) 1 Each Tablet, 1 TAB PO PRN Q6HRS PRN for PAIN, #30 Ref 0 Prescribed by: WINDY CHAPIN on 09/25/18 0950 Last Action: Continued on 12/18/18825 by JENNIFER GRAFF Meclizine Hcl (Meclizine Hcl) 25 Mg Tablet, 1 TAB PO PRN Q4HRS PRN for NAUSEA, #90 (Reported) Entered as Reported by: IGNACIO MOSQUEDA on 09/14/181810 Last Action: Converted on 12/18/18825 by JENNIFER FULLER MD Dec 18, 2018 10:22
--- NOTE | 2018-12-18 10:22 | PDOC1 ---
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 IR has fixed the G tube today, and there is less erythema around the site, and she asks for a diet, I was about to dc her but she complains of urinary pain (recent abx for UTI BUT uA is clean), some BOV, headache etc, I am Rxing cipro, urine cx, pyridium, reg diet, IF she feels better later, she can go home Dw GAYATHRI Nugent SHe had the abd pain, drainage around G tube and some redness around the site x 2 weeks - FIXED NOW by IR Past Medical History Pulmonary: Other CENTRAL NERVOUS SYSTEM: CVA GI: GERD, Other Psych: Anxiety, Depression Rheumatologic: Fibromyalgia Past Surgical History Past Surgical History: Appendectomy, Cholecystectomy, Hysterectomy, Other Family History Family History: Cancer Social History Smoke: No ALCOHOL: none Drugs: None Current Problem List Problem List Problems Medical Problems: (1) Elevated lactic acid level Status: Acute Current Medications Current Medications Current Medications Sodium Chloride 1,000 ml @ 1,000 mls/hr Q1H IV Last administered on 12/17/18at 23:43; Start 12/17/18 at 23:00; Stop 12/17/18 at 23:59; Status DC Fentanyl Citrate (Fentanyl 2ml Vial) 50 mcg 1X ONCE IV Last administered on 12/17/18at 23:42; Start 12/17/18 at 23:00; Stop 12/17/18 at 23:01; Status DC Ondansetron HCl (Zofran) 4 mg 1X ONCE IV Last administered on 12/17/18at 23:42; Start 12/17/18 at 23:00; Stop 12/17/18 at 23:01; Status DC Famotidine (Pepcid Vial) 20 mg 1X ONCE IVP Last administered on 12/17/18at 23:42; Start 12/17/18 at 23:00; Stop 12/17/18 at 23:01; Status DC Sodium Chloride 1,000 ml @ 1,000 mls/hr 1X ONCE IV Last administered on 12/18/18at 00:27; Start 12/18/18 at 00:30; Stop 12/18/18 at 01:29; Status DC Ceftriaxone Sodium (Rocephin) 1 gm 1X ONCE IVP Last administered on 12/18/18at 00:27; Start 12/18/18 at 00:30; Stop 12/18/18 at 00:31; Status DC Vancomycin HCl 250 ml @ 250 mls/hr 1X ONCE IV ; Start 12/18/18 at 00:15; Stop 12/18/18 at 01:14; Status UNV Vancomycin HCl 1.75 gm/Sodium Chloride 500 ml @ 250 mls/hr 1X ONCE IV Last administered on 12/18/18at 02:13; Start 12/18/18 at 00:30; Stop 12/18/18 at 02:29; Status DC Vancomycin HCl (Vanco Per Pharmacy) 1 each PRN DAILY PRN MC SEE COMMENTS; Start 12/18/18 at 00:15; Status Cancel Fentanyl Citrate (Fentanyl 2ml Vial) 50 mcg PRN Q2HR PRN IVP SEVERE PAIN 7-10 Last administered on 12/18/18at 07:38; Start 12/18/18 at 02:00 Diphenhydramine HCl (Benadryl) 12.5 mg PRN Q6HRS PRN IVP ITCHING Last administered on 12/18/18at 08:45; Start 12/18/18 at 02:00 Ondansetron HCl (Zofran) 4 mg PRN Q4HRS PRN IVP NAUSEA/VOMITING 1ST CHOICE; Start 12/18/18 at 02:00 Sodium Chloride 1,000 ml @ 80 mls/hr [id number] IV Last administered on 12/18/18at 02:14; Start 12/18/18 at 02:00 Influenza Virus Vaccine Quadrival (Afluria Quad 2019-20 (3yr Up) Syringe) 0.5 ml ONCE ONCE VAX IM ; Start 12/18/18 at 09:00; Stop 12/18/18 at 09:01; Status DC Ondansetron HCl (Zofran) 4 mg PRN Q8HRS PRN IV NAUSEA/VOMITING; Start 12/18/18 at 03:45; Stop 12/18/18 at 08:00; Status UNV Fentanyl Citrate (Fentanyl 2ml Vial) 50 mcg Q2HR PRN IV PAIN; Start 12/18/18 at 03:45; Stop 12/18/18 at 08:00; Status UNV Sodium Chloride 1,000 ml @ 100 mls/hr Q10H IV ; Start 12/18/18 at 03:36; Stop 12/19/18 at 03:35; Status UNV Alprazolam (Xanax) 0.5 mg PRN TID PRN PO ANXIETY / AGITATION; Start 12/18/18 at 08:30 Docusate Sodium (Colace) 100 mg DAILY PO ; Start 12/18/18 at 09:00 Acetaminophen/ Hydrocodone Bitart (Lortab 10/325) 1 tab PRN Q6HRS PRN PO PAIN; Start 12/18/18 at 08:30 Lisinopril (Prinivil) 10 mg DAILY PO ; Start 12/18/18 at 09:00 Metoprolol Tartrate (Lopressor) 12.5 mg BID PO ; Start 12/18/18 at 09:00 Pantoprazole Sodium (Protonix) 40 mg BIDAC PO ; Start 12/18/18 at 09:00 Promethazine HCl (Phenergan) 12.5 mg PRN Q6HRS PRN PO NAUSEA/VOMITING; Start 12/18/18 at 12:00 Ropinirole HCl (Requip) 1 mg QHS PO ; Start 12/18/18 at 21:00 Simvastatin (Zocor) 40 mg QHS PO ; Start 12/18/18 at 21:00 Cetirizine HCl (ZyrTEC) 10 mg DAILY PO ; Start 12/18/18 at 09:00 Meclizine HCl (Antivert) 12.5 mg PRN Q4HRS PRN PO DIZZINESS; Start 12/18/18 at 08:45; Stop 12/18/18 at 08:33; Status DC Trazodone HCl (Desyrel) 300 mg QHS PO ; Start 12/18/18 at 21:00 Venlafaxine HCl (Effexor) 50 mg TID PO ; Start 12/18/18 at 09:00 Meclizine HCl (Antivert) 25 mg PRN Q4HRS PRN PO DIZZINESS; Start 12/18/18 at 08:45 Iohexol (Omnipaque 240 Mg/ml) 50 ml STK-MED ONCE .ROUTE ; Start 12/18/18 at 08:37; Stop 12/18/18 at 08:37; Status DC Iohexol (Omnipaque 240 Mg/ml) 50 ml 1X ONCE IJ Last administered on 12/18/18at 09:12; Start 12/18/18 at 09:00; Stop 12/18/18 at 09:01; Status DC Info (CONTRAST GIVEN -- Rx MONITORING) 1 each PRN DAILY PRN MC SEE COMMENTS; Start 12/18/18 at 09:00; Stop 12/20/18 at 08:59 Active Scripts Active Colace (Docusate Sodium) 100 Mg Capsule 100 Mg PO DAILY Hydrocodone-Apap 10-325 (Hydrocodone Bit/Acetaminophen) 1 Each Tablet 1 Tab PO PRN Q6HRS PRN Protonix (Pantoprazole Sodium) 40 Mg Tablet.dr 1 Tab PO BID Reported Levocetirizine Dihydrochloride 5 Mg Tablet 1 Tab PO DAILY NITROGLYCERIN SubLingual (Nitroglycerin) 0.4 Mg Tab.subl 1 Tab SL UD Meclizine Hcl 25 Mg Tablet 1 Tab PO PRN Q4HRS PRN Promethazine Hcl 12.5 Mg Tablet 1 Tab PO Q6HRS Marinol (Dronabinol) 5 Mg Capsule 5 Mg PO PRN 6X PER DAY Aspir 81 (Aspirin) 81 Mg Tablet.dr 1 Tab PO DAILY Trazodone Hcl 300 Mg Tablet 1 Tab PO QHS Linzess (Linaclotide) 290 Mcg Capsule 290 Mcg PO DAILY Metoprolol Tartrate 25 Mg Tablet 0.5 Tab PO BID Lisinopril 10 Mg Tablet 1 Tab PO DAILY Zocor (Simvastatin) 40 Mg Tablet 1 Tab PO QHS Requip (Ropinirole Hcl) 1 Mg Tablet 1 Mg PO QHS Xanax (Alprazolam) 0.5 Mg Tablet 0.5 Mg PO TID PRN Effexor Xr (Venlafaxine Hcl) 150 Mg Cap.er.24h 1 Cap PO DAILY Allergies Allergies: Coded Allergies: Estrogens (Verified Allergy, Severe, LOSS OF VISION, 09/15/18) Latex, Natural Rubber (Verified Allergy, Intermediate, RASH, 09/15/18) clarithromycin (Verified Allergy, Intermediate, rash, 09/15/18) ferrous gluconate (Verified Allergy, Intermediate, 09/15/18) labetalol (Verified Allergy, Intermediate, itching, 09/15/18) levofloxacin (Verified Allergy, Intermediate, rash, 09/15/18) morphine (Verified Allergy, Intermediate, rash, 09/15/18) paroxetine (Verified Allergy, Intermediate, RASH/VOMITING, 09/15/18) I S O L A T I O N *CONTACT* (Verified Allergy, Unknown, 09/24/18) mrsa amoxicillin (Verified Adverse Reaction, Intermediate, VOMITING, 09/15/18) clavulanic acid (Verified Adverse Reaction, Intermediate, VOMITING, 09/15/18) quinine (Verified Adverse Reaction, Intermediate, diarrhea, 09/15/18) ROS Review of System as per HPI, rest 14 pt neg Physical Exam General: Alert, Oriented X3, Cooperative, No acute distress HEENT: Atraumatic, PERRLA, EOMI Lungs: Clear to auscultation, Normal air movement Heart: S1S2, RRR, no thrills, no rubs Cardiovascular: S1, S2 Breasts: Normal, Rt breast nml w/o mass, Lt breast nml w/o mass, Nipples normal Abdomen: Normal bowel sounds, Soft, Other (NEw G tube in place, minimal redness around G tube site) Rectal Exam: not examined PELVIC: Nml ext genitalia Extremities: No clubbing, No cyanosis, No edema, Normal pulses, No tenderness/swelling Skin: No rashes, No breakdown, No significant lesion Neuro: Normal gait, Normal speech, Strength at 5/5 X4 ext, Normal tone, Sensation intact, Cranial nerves 3-12 NL, Reflexes 2+ Psych/Mental Status: Mental status NL, Mood NL Vitals Vitals Vital Signs Date Time Temp Pulse Resp B/P (MAP) Pulse Ox O2 Delivery O2 Flow Rate FiO2 12/18/18 08:08 Room Air 12/18/18 07:00 97.5 69 18 113/56 (75) 97 97.5 Labs Labs Laboratory Tests Test 12/17/18 22:29 12/17/18 23:20 12/18/18 03:00 Urine Collection Type Unknown Urine Color Yellow Urine Clarity Clear Urine pH 5.5 Urine Specific [place] >=1.030 Urine Protein Negative mg/dL (NEG-TRACE) Urine Glucose (UA) Negative mg/dL (NEG) Urine Ketones (Stick) Negative mg/dL (NEG) Urine Blood Negative (NEG) Urine Nitrite Negative (NEG) Urine Bilirubin Small (NEG) Urine Urobilinogen Dipstick 0.2 mg/dL (0.2 mg/dL) Urine Leukocyte Esterase Negative (NEG) Urine RBC 0 /HPF (0-2) Urine WBC 1-4 /HPF (0-4) Urine Squamous Epithelial Cells Few /LPF Urine Bacteria Few /HPF (0-FEW) Urine Mucus Marked /LPF White Blood Count 6.1 x10^3/uL (4.0-11.0) Red Blood Count 4.08 x10^6/uL (3.50-5.40) Hemoglobin 10.5 g/dL (12.0-15.5) Hematocrit 31.9 % (36.0-47.0) Mean Corpuscular Volume 78 fL (79-100) Mean Corpuscular Hemoglobin 26 pg (25-35) Mean Corpuscular Hemoglobin Concent 33 g/dL (31-37) Red Cell Distribution Width 16.3 % (11.5-14.5) Platelet Count 222 x10^3/uL (140-400) Neutrophils (%) (Auto) 54 % (31-73) Lymphocytes (%) (Auto) 36 % (24-48) Monocytes (%) (Auto) 5 % (0-9) Eosinophils (%) (Auto) 3 % (0-3) Basophils (%) (Auto) 1 % (0-3) Neutrophils # (Auto) 3.3 x10^3/uL (1.8-7.7) Lymphocytes # (Auto) 2.2 x10^3/uL (1.0-4.8) Monocytes # (Auto) 0.3 x10^3/uL (0.0-1.1) Eosinophils # (Auto) 0.2 x10^3/uL (0.0-0.7) Basophils # (Auto) 0.1 x10^3/uL (0.0-0.2) Sodium Level 142 mmol/L (136-145) Potassium Level 4.0 mmol/L (3.5-5.1) Chloride Level 107 mmol/L (98-107) Carbon Dioxide Level 25 mmol/L (21-32) Anion Gap 10 (6-14) Blood Urea Nitrogen 15 mg/dL (7-20) Creatinine 0.7 mg/dL (0.6-1.0) Estimated GFR (Cockcroft-Gault) 86.2 BUN/Creatinine Ratio 21 (6-20) Glucose Level 109 mg/dL (70-99) Lactic Acid Level 2.1 mmol/L (0.4-2.0) 1.1 mmol/L (0.4-2.0) Calcium Level 9.0 mg/dL (8.5-10.1) Total Bilirubin 0.2 mg/dL (0.2-1.0) Aspartate Amino Transf (AST/SGOT) 13 U/L (15-37) Alanine Aminotransferase (ALT/SGPT) 13 U/L (14-59) Alkaline Phosphatase 65 U/L (46-116) Total Protein 7.2 g/dL (6.4-8.2) Albumin 3.5 g/dL (3.4-5.0) Albumin/Globulin Ratio 0.9 (1.0-1.7) Lipase 123 U/L (73-393) Laboratory Tests Test 12/17/18 22:29 12/17/18 23:20 12/18/18 03:00 Urine Collection Type Unknown Urine Color Yellow Urine Clarity Clear Urine pH 5.5 Urine Specific [place] >=1.030 Urine Protein Negative mg/dL (NEG-TRACE) Urine Glucose (UA) Negative mg/dL (NEG) Urine Ketones (Stick) Negative mg/dL (NEG) Urine Blood Negative (NEG) Urine Nitrite Negative (NEG) Urine Bilirubin Small (NEG) Urine Urobilinogen Dipstick 0.2 mg/dL (0.2 mg/dL) Urine Leukocyte Esterase Negative (NEG) Urine RBC 0 /HPF (0-2) Urine WBC 1-4 /HPF (0-4) Urine Squamous Epithelial Cells Few /LPF Urine Bacteria Few /HPF (0-FEW) Urine Mucus Marked /LPF White Blood Count 6.1 x10^3/uL (4.0-11.0) Red Blood Count 4.08 x10^6/uL (3.50-5.40) Hemoglobin 10.5 g/dL (12.0-15.5) Hematocrit 31.9 % (36.0-47.0) Mean Corpuscular Volume 78 fL (79-100) Mean Corpuscular Hemoglobin 26 pg (25-35) Mean Corpuscular Hemoglobin Concent 33 g/dL (31-37) Red Cell Distribution Width 16.3 % (11.5-14.5) Platelet Count 222 x10^3/uL (140-400) Neutrophils (%) (Auto) 54 % (31-73) Lymphocytes (%) (Auto) 36 % (24-48) Monocytes (%) (Auto) 5 % (0-9) Eosinophils (%) (Auto) 3 % (0-3) Basophils (%) (Auto) 1 % (0-3) Neutrophils # (Auto) 3.3 x10^3/uL (1.8-7.7) Lymphocytes # (Auto) 2.2 x10^3/uL (1.0-4.8) Monocytes # (Auto) 0.3 x10^3/uL (0.0-1.1) Eosinophils # (Auto) 0.2 x10^3/uL (0.0-0.7) Basophils # (Auto) 0.1 x10^3/uL (0.0-0.2) Sodium Level 142 mmol/L (136-145) Potassium Level 4.0 mmol/L (3.5-5.1) Chloride Level 107 mmol/L (98-107) Carbon Dioxide Level 25 mmol/L (21-32) Anion Gap 10 (6-14) Blood Urea Nitrogen 15 mg/dL (7-20) Creatinine 0.7 mg/dL (0.6-1.0) Estimated GFR (Cockcroft-Gault) 86.2 BUN/Creatinine Ratio 21 (6-20) Glucose Level 109 mg/dL (70-99) Lactic Acid Level 2.1 mmol/L (0.4-2.0) 1.1 mmol/L (0.4-2.0) Calcium Level 9.0 mg/dL (8.5-10.1) Total Bilirubin 0.2 mg/dL (0.2-1.0) Aspartate Amino Transf (AST/SGOT) 13 U/L (15-37) Alanine Aminotransferase (ALT/SGPT) 13 U/L (14-59) Alkaline Phosphatase 65 U/L (46-116) Total Protein 7.2 g/dL (6.4-8.2) Albumin 3.5 g/dL (3.4-5.0) Albumin/Globulin Ratio 0.9 (1.0-1.7) Lipase 123 U/L (73-393) VTE Prophylaxis Ordered VTE Prophylaxis Devices: Yes VTE Pharmacological Prophylaxi: Yes Assessment/Plan Assessment/Plan 1/ Leaking G tube - placed August 2018 for gastroparesis - replaced successfully tofay by IT (12/18) 2. Dysuria - recent abx UTI tx - cipro, pyridium, check urine cx - can ff up as OP 3. Obesity 4, Anxiety NOS 5. MIld cellulitis around G tube site - bacitracin, wound care (she can be anxious about it but it doesnt LOOK bad at all) PLAN: CIpro, IVF to consume, reg diet,. pyridium BAcitracin topical around G tibzain CAn go home later today when she feels ready and she feels like we have addressed all her concerns JENNIFER Nolan RN, MD Dec 18, 2018 10:22
[2018-12-18] MEDS ORDERED: PHEN-444 PO (10:24)
[2018-12-18] MEDS ORDERED: CIPR250T30 PO (10:24)
--- NOTE | 2018-12-18 11:01 | NUR ---
SW following for discharge planning. Chart reviewed, discussed with RN. Pt is from home with , gets around fine. Discharge order in chart for home with self care. No further SW needs. Addendum: 12/18/18 at 1325 by RIMA CAMACHO SW Per RN, pt may not discharging today due to ID consult by Dr. Coleman. LOVE will continue to follow.
--- NOTE | 2018-12-18 11:24 | RAD ---
12/18/2018 9:20 AM Procedure: Replacement of G-tube to pre-existing tract Clinical Indication: Discussion: The procedure was explained in its entirety to the patient or the patients designated public health representative by a member of the treatment team, including a discussion of the risks, benefits and commonly accepted alternatives to the procedure, as well as the expected consequences of no therapy whatsoever. Discussion of the risks included, but was not limited to, those that are most frequent and those that are rare but possibly severe or life-threatening, as well as the possibility of unforeseen complications. All elements of maximal sterile barrier technique including the use of a cap, mask, sterile gown, sterile gloves, large sterile sheet, appropriate hand hygiene, and 2% chlorhexidine for cutaneous antisepsis (or acceptable alternative antiseptic per current guidelines) were followed for this procedure. The pre-existing tube was evaluated under fluoroscopy including the administration of contrast implanted in normal position. The tube was removed over the wire and replaced with new 20 Tong[place] G-tube. Position was confirmed with fluoroscopy including contrast administration. No immediate complications were identified. Total fluoroscopy time: 0.7 min Dose area product: 3 Gycm2 Impression: Fluoroscopically guided replacement of gastrostomy tube
[2018-12-18] MEDS: METOPROLOL TART IMMED RELEASE 25 MG TABLET. PO SCH ×2 (11:29→21:30)
[2018-12-18] MEDS: VENLAFAXINE 50 MG TABLET. PO SCH ×3 (11:29→21:30)
[2018-12-18] MEDS: CETIRIZINE HCL 10 MG TABLET. PO SCH (11:29)
[2018-12-18] MEDS: PANTOPRAZOLE 40 MG TABLET.DR. PO SCH ×2 (11:29→17:05)
[2018-12-18] MEDS: DOCUSATE SODIUM 100 MG CAPSULE. PO SCH (11:29)
[2018-12-18] MEDS ORDERED: PROMETHAZINE 12.5 MG TABLET. PO PRN (12:00)
[2018-12-18] MEDS: PHENAZOPYRIDINE 200 MG TABLET. PO SCH ×2 (13:40→21:30)
[2018-12-18] MEDS: HYDROcodone/APAP 10/325 1 TAB TABLET PO PRN ×2 (13:41→21:30)
[2018-12-18] MEDS: CIPROFLOXACIN HCL 250 MG TABLET. PO SCH ×2 (13:41→21:30)
[2018-12-18] MEDS: rOPINIRole 1 MG TABLET. PO SCH (21:30)
[2018-12-18] MEDS: BACITRACIN TOPICAL OINT PACKET. TP SCH (21:30)
[2018-12-18] MEDS: traZODone 100 MG TABLET. PO SCH (21:30)
[2018-12-18] MEDS: SIMVASTATIN 40 MG TABLET. PO SCH (21:31)
[2018-12-19] MEDS: fentaNYL PF VIAL 100 MCG/2 ML VIAL IVP PRN ×3 (02:56→17:20)
[2018-12-19 03:00] VITALS: BP 102/56
[2018-12-19] MEDS: PANTOPRAZOLE 40 MG TABLET.DR. PO SCH ×2 (06:10→14:56)
[2018-12-19] MEDS: HYDROcodone/APAP 10/325 1 TAB TABLET PO PRN ×3 (06:10→20:48)
[2018-12-19 07:05] VITALS: BP 120/75
[2018-12-19] MEDS: DOCUSATE SODIUM 100 MG CAPSULE. PO SCH (08:04)
[2018-12-19] MEDS: LISINOPRIL 10 MG TABLET PO SCH (08:05)
[2018-12-19] MEDS: CETIRIZINE HCL 10 MG TABLET. PO SCH (08:05)
[2018-12-19] MEDS: PHENAZOPYRIDINE 200 MG TABLET. PO SCH ×3 (08:06→20:49)
[2018-12-19] MEDS: METOPROLOL TART IMMED RELEASE 25 MG TABLET. PO SCH ×2 (08:06→21:00)
[2018-12-19] MEDS: CIPROFLOXACIN HCL 250 MG TABLET. PO SCH ×2 (08:06→20:49)
[2018-12-19] MEDS: BACITRACIN TOPICAL OINT PACKET. TP SCH ×2 (08:06→20:49)
[2018-12-19] MEDS: VENLAFAXINE 50 MG TABLET. PO SCH ×3 (08:06→20:48)
--- NOTE | 2018-12-19 08:47 | PDOC ---
Provider Note Provider Note NO problems Waiting for ID to see - dc held for ID consult as recommended by ALDO MINimal erythema around g tube site She is eating well WBC and UA ok - i provided a copy Pyridium working for her RX on chart Await ID rounds Dw too at bedside Ok to dc if cleared by ID - dw RN JENNIFER GRAFF MD Dec 19, 2018 08:47
[2018-12-19 11:09] VITALS: BP 120/53
--- NOTE | 2018-12-19 11:39 | PDOC ---
SURGICAL PROGRESS NOTE Subjective Pt without c/o, amy PO Vital Signs Vital Signs Date Time Temp Pulse Resp B/P (MAP) Pulse Ox O2 Delivery O2 Flow Rate FiO2 12/19/18 11:09 98.0 63 18 120/53 (75) 96 Room Air 98.0 I&O Intake and Output 12/19/18 07:00 Intake Total 580 ml Balance 580 ml Intake Oral 580 ml # Voids 7 General: Alert, Oriented X3, Cooperative, No acute distress Abdomen: Soft, No tenderness, Other (G-tube in place) Labs Laboratory Tests Test 12/17/18 22:29 12/17/18 23:20 12/18/18 03:00 Urine Collection Type Unknown Urine Color Yellow Urine Clarity Clear Urine pH 5.5 Urine Specific Mccrory >=1.030 Urine Protein Negative mg/dL (NEG-TRACE) Urine Glucose (UA) Negative mg/dL (NEG) Urine Ketones (Stick) Negative mg/dL (NEG) Urine Blood Negative (NEG) Urine Nitrite Negative (NEG) Urine Bilirubin Small (NEG) Urine Urobilinogen Dipstick 0.2 mg/dL (0.2 mg/dL) Urine Leukocyte Esterase Negative (NEG) Urine RBC 0 /HPF (0-2) Urine WBC 1-4 /HPF (0-4) Urine Squamous Epithelial Cells Few /LPF Urine Bacteria Few /HPF (0-FEW) Urine Mucus Marked /LPF White Blood Count 6.1 x10^3/uL (4.0-11.0) Red Blood Count 4.08 x10^6/uL (3.50-5.40) Hemoglobin 10.5 g/dL (12.0-15.5) Hematocrit 31.9 % (36.0-47.0) Mean Corpuscular Volume 78 fL (79-100) Mean Corpuscular Hemoglobin 26 pg (25-35) Mean Corpuscular Hemoglobin Concent 33 g/dL (31-37) Red Cell Distribution Width 16.3 % (11.5-14.5) Platelet Count 222 x10^3/uL (140-400) Neutrophils (%) (Auto) 54 % (31-73) Lymphocytes (%) (Auto) 36 % (24-48) Monocytes (%) (Auto) 5 % (0-9) Eosinophils (%) (Auto) 3 % (0-3) Basophils (%) (Auto) 1 % (0-3) Neutrophils # (Auto) 3.3 x10^3/uL (1.8-7.7) Lymphocytes # (Auto) 2.2 x10^3/uL (1.0-4.8) Monocytes # (Auto) 0.3 x10^3/uL (0.0-1.1) Eosinophils # (Auto) 0.2 x10^3/uL (0.0-0.7) Basophils # (Auto) 0.1 x10^3/uL (0.0-0.2) Sodium Level 142 mmol/L (136-145) Potassium Level 4.0 mmol/L (3.5-5.1) Chloride Level 107 mmol/L (98-107) Carbon Dioxide Level 25 mmol/L (21-32) Anion Gap 10 (6-14) Blood Urea Nitrogen 15 mg/dL (7-20) Creatinine 0.7 mg/dL (0.6-1.0) Estimated GFR (Cockcroft-Gault) 86.2 BUN/Creatinine Ratio 21 (6-20) Glucose Level 109 mg/dL (70-99) Lactic Acid Level 2.1 mmol/L (0.4-2.0) 1.1 mmol/L (0.4-2.0) Calcium Level 9.0 mg/dL (8.5-10.1) Total Bilirubin 0.2 mg/dL (0.2-1.0) Aspartate Amino Transf (AST/SGOT) 13 U/L (15-37) Alanine Aminotransferase (ALT/SGPT) 13 U/L (14-59) Alkaline Phosphatase 65 U/L (46-116) Total Protein 7.2 g/dL (6.4-8.2) Albumin 3.5 g/dL (3.4-5.0) Albumin/Globulin Ratio 0.9 (1.0-1.7) Lipase 123 U/L (73-393) Problem List Problems Medical Problems: (1) Elevated lactic acid level Status: Acute Assessment/Plan UTI, G-tube drainage OK to d/c once seen by ID f/u WILLIAM BLACK MD Dec 19, 2018 11:39
--- NOTE | 2018-12-19 14:19 | PDOC ---
Infectious Disease Note Vital Sign Vital Signs Vital Signs Date Time Temp Pulse Resp B/P (MAP) Pulse Ox O2 Delivery O2 Flow Rate FiO2 12/19/18 13:41 96 Room Air 12/19/18 11:09 98.0 63 18 120/53 (75) 98.0 Labs Micro Microbiology 12/17/18 Blood Culture - Preliminary, Resulted NO GROWTH AFTER 1 DAY Objective Assessment Infected Peg-tube s/p replacement, 12/18. culture pending Recent UTI. OP Keflex and Bactrim h/o MRSA Multiple abx allergies/intolerances: Augmentin, clarithromycin, levofloxacin Gastroparesis h/o seizures Plan Plan of Care Continue cipro for now f/u cultures Add procalcitonin and CRP in am D/w nursing D/w Dr. Payne Thank you [id number] Patient seen and examined. Chart reviewed in detail. Case discussed with PATIENT'S LIBRARIAN. Agree with above plan. BHARGAV VALENZUELA APRN Dec 19, 2018 14:19 SHOLA PAYNE MD Dec 19, 2018 21:41
[2018-12-19 15:00] VITALS: BP 100/53
[2018-12-19 19:15] VITALS: BP 103/37
[2018-12-19] MEDS: traZODone 100 MG TABLET. PO SCH (20:48)
[2018-12-19] MEDS: SIMVASTATIN 40 MG TABLET. PO SCH (20:49)
[2018-12-19] MEDS: rOPINIRole 1 MG TABLET. PO SCH (20:49)
[2018-12-19 23:13] VITALS: BP 83/35
--- NOTE | 2018-12-20 01:14 | CONS ---
DATE OF CONSULTATION: 12/19/2018 REFERRING PHYSICIAN: Dr. Coleman. REASON FOR CONSULTATION: Urinary tract infection and a gastrostomy tube infection. HISTORY OF PRESENT ILLNESS: This patient is a 58-year-old female with a history of gastroparesis and esophageal rupture, status post PEG tube placement in 2010. She has had multiple PEG tube replacements since due to malfunction and infection including MRSA. About 3 weeks ago, she developed dysuria, had blood in urine. She took Keflex that she had on hand with minimal improvement. About that time, she also developed pain around her PEG tube site with green drainage and redness that have worsened since. She was seen by her PCP and finished a 7-day course of Bactrim with minimal improvement. Cultures were sent. Yesterday, she underwent IR replacement of the gastrostomy tube. She is currently taking ciprofloxacin. She says the redness and drainage have improved, but still somewhat painful and urinary symptoms are better. She reports having fevers, chills, and dry heaves prior to admission. PAST MEDICAL HISTORY: Gastroparesis. Esophageal rupture, status post PEG tube placement in 2010. 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 CVA, seizures, hyperlipidemia, hypertension, sleep apnea, colonic polyps, irritable bowel, hemorrhoids, hiatal hernia, obesity, gastroesophageal reflux, fibromyalgia, arthritis, HUGHES, depression, and anxiety. PAST SURGICAL HISTORY: Adrianne fundoplication in 2008. A gastric perforation repair in 2010. Tonsillectomy, cholecystectomy, hysterectomy, section, left knee and right shoulder surgery. SOCIAL HISTORY: The patient is and lives at home. She used to vape. Smokes marijuana for nausea control. FAMILY HISTORY: Stroke, heart disease, depression, prostate cancer, and drug abuse. ALLERGIES: AMOXICILLIN, CLAVULANIC ACID, CLARITHROMYCIN, LEVOFLOXACIN causing dry heaves, itching, and rash. Also listed LATEX, NATURAL RUBBER, FERROUS GLUCONATE, LABETALOL, MORPHINE, PAROXETINE, QUININE, and also ESTROGENS. MEDICATIONS: Ciprofloxacin, Bacitracin, Zyrtec, Benadryl, Colace, Lortab, lisinopril, Antivert, metoprolol, Zofran, Protonix, Pyridium, Phenergan, Requip, Zocor, tramadol, trazodone, and Effexor. REVIEW OF SYSTEMS: Per HPI, otherwise all other review of systems are negative. PHYSICAL EXAMINATION: VITAL SIGNS: Temperature is 98.0, blood pressure 120/53, heart rate 63, respiratory rate 18, and pulse oximetry 96% on room air. BMI 28. GENERAL: The patient is propped up in bed, alert, appears comfortable. HEENT: Pupils equally round. Oropharynx pink and moist. NECK: Supple. LUNGS: Clear to auscultation. HEART: S1, S2. ABDOMEN: Obese, soft, mildly tender around PEG tube site. No redness or drainage noted. EXTREMITIES: No gross edema or cyanosis. SKIN: Warm to touch. No signs or rash. NEUROLOGIC: Alert and oriented x 3. LABORATORY DATA: On admission, WBC 6.1, hemoglobin 10.5, platelets 222,000. Electrolytes are unremarkable. Creatinine 0.7, BUN 15, glucose 109. Lactic acid 1.1 from 2.1, total bilirubin 0.2, AST 13, ALT 13, albumin 3.5. Lipase 123. Urine showed a few wbc's, squamous epithelial cells and bacteria. Blood cultures negative to date. Urine culture pending. Aerobic culture and Gram stain pending. IMPRESSION: 1. Infected PEG tube, status post replacement on 12/18. Cultures pending. 2. Recent urinary tract infection. She was treated with outpatient Keflex and Bactrim. 3. History of methicillin-resistant Staphylococcus aureus. 4. Multiple antibiotic allergies/intolerance to AUGMENTIN, CLARITHROMYCIN, and LEVOFLOXACIN causing dry heaves, rash, and itching. 5. Gastroparesis. 6. History of seizures. PLAN: Continue the ciprofloxacin for now. Awaiting culture results. Add procalcitonin and CRP in a.m. Discussed with nursing. Thank you, Dr. Coleman for asking us to participate in this patient's care. Should you have further questions or concerns, please call. SHOLA SANDERS MD DR: LYNNE/shalonda JOB#: [id number] / [id number]
[2018-12-20 03:13] VITALS: BP 97/50
[2018-12-20 07:00] VITALS: BP 115/63
[2018-12-20] MEDS: PANTOPRAZOLE 40 MG TABLET.DR. PO SCH ×2 (07:00→18:34)
[2018-12-20] MEDS: HYDROcodone/APAP 10/325 1 TAB TABLET PO PRN ×3 (07:02→21:03)
[2018-12-20] MEDS: LISINOPRIL 10 MG TABLET PO SCH (09:00)
[2018-12-20] MEDS: METOPROLOL TART IMMED RELEASE 25 MG TABLET. PO SCH ×2 (09:00→20:45)
[2018-12-20] MEDS: PHENAZOPYRIDINE 200 MG TABLET. PO SCH ×3 (09:18→20:38)
[2018-12-20] MEDS: CIPROFLOXACIN HCL 250 MG TABLET. PO SCH ×2 (09:18→20:38)
[2018-12-20] MEDS: DOCUSATE SODIUM 100 MG CAPSULE. PO SCH (09:18)
[2018-12-20] MEDS: CETIRIZINE HCL 10 MG TABLET. PO SCH (09:19)
[2018-12-20] MEDS: VENLAFAXINE 50 MG TABLET. PO SCH ×3 (09:20→20:39)
[2018-12-20] MEDS: BACITRACIN TOPICAL OINT PACKET. TP SCH ×3 (09:21→20:40)
--- NOTE | 2018-12-20 10:20 | PDOC ---
Infectious Disease Note Subjective Subjective c/o pain about G-tube site and lower abdominal pain with urination No F/C/cough/SOA/CP/diarrhea ROS ROS per HPI Vital Sign Vital Signs Vital Signs Date Time Temp Pulse Resp B/P (MAP) Pulse Ox O2 Delivery O2 Flow Rate FiO2 12/20/18 09:00 75 115/63 12/20/18 08:02 20 Room Air 12/20/18 07:02 95 12/20/18 07:00 98.6 98.6 Physical Exam PHYSICAL EXAM GENERAL: Propped up in bed, alert, appears comfortable. HEENT: Pupils equally round. Oropharynx pink and moist. NECK: Supple. LUNGS: mild LLL rhonchi HEART: S1, S2. ABDOMEN: Obese, soft, mildly tender around PEG tube site. No redness or drainage noted. EXTREMITIES: No gross edema or cyanosis. SKIN: Warm to touch. No signs or rash. NEUROLOGIC: Alert and oriented x 3. PIV Labs Lab Laboratory Tests Test 12/20/18 04:30 12/20/18 04:35 Procalcitonin < 0.10 ng/mL (0.00-0.10) C-Reactive Protein, Quantitative 2.4 mg/L (0-3.3) Micro Microbiology 12/17/18 Blood Culture - Preliminary, Resulted NO GROWTH AFTER 1 DAY Peg-site GRAM STAIN RESULT 2 Final No organisms seen URINE CULTURE RES 1 Final No growth Objective Assessment Infected Peg-tube s/p replacement, 12/18. No organisms on gram stain Recent UTI. OP Keflex and Bactrim. UC negative h/o MRSA Multiple abx allergies/intolerances: Augmentin, clarithromycin, levofloxacin Gastroparesis h/o seizures Plan Plan of Care Continue cipro for now f/u cultures Procalcitonin and CRP both normal D/w nursing Patient seen and examined. Chart reviewed in detail. Case discussed with CUP TRIMMING MACHINE OPERATOR. Agree with above plan BHARGAV VALENZUELA APRN Dec 20, 2018 10:20 SHOLA SANDERS MD Dec 20, 2018 18:57
[2018-12-20 11:00] VITALS: BP 101/63
--- NOTE | 2018-12-20 11:16 | PDOC ---
PROGRESS NOTES History of Present Illness History of Present Illness Assessment Infected Peg-tube s/p replacement, 12/18. anemia Recent UTI. h/o MRSA hx Gastroparesis hx seizures plan cipro Fluoroscopically guided replacement of gastrostomy tube iv procalamine 80 cc/ hr surgery following fe panel, retic 27 min pt exam, chart review, > 50% of time spent with exam, chart review, pt care coordination Vitals Vitals Vital Signs Date Time Temp Pulse Resp B/P (MAP) Pulse Ox O2 Delivery O2 Flow Rate FiO2 12/20/18 09:00 75 115/63 12/20/18 08:02 20 Room Air 12/20/18 07:02 95 12/20/18 07:00 98.6 98.6 Physical Exam Physical Exam GENERAL: Propped up in bed, alert, appears comfortable. HEENT: Pupils equally round. Oropharynx pink and moist. NECK: Supple. LUNGS: mild LLL rhonchi HEART: S1, S2. ABDOMEN: Obese, soft, mildly tender around PEG tube site. No redness or drainage noted. EXTREMITIES: No gross edema or cyanosis. SKIN: Warm to touch. No signs or rash. NEUROLOGIC: Alert and oriented x 3. PIV General: Alert, Oriented X3, Cooperative, No acute distress Heart: Regular rate, Normal S1, Normal S2, No murmurs Lungs: Clear, Crackles Abdomen: Normal bowel sounds, Soft, No tenderness, Other (G-tube in place) Extremities: No clubbing, No cyanosis, No edema, Normal pulses, No tenderness/swelling Skin: No rashes, No breakdown, No significant lesion Labs LABS 12/18/2018 9:20 AM Procedure: Replacement of G-tube to pre-existing tract Clinical Indication: Discussion: The procedure was explained in its entirety to the patient or the patients designated employment program representative by a member of the treatment team, including a discussion of the risks, benefits and commonly accepted alternatives to the procedure, as well as the expected consequences of no therapy whatsoever. Discussion of the risks included, but was not limited to, those that are most frequent and those that are rare but possibly severe or life-threatening, as well as the possibility of unforeseen complications. All elements of maximal sterile barrier technique including the use of a cap, mask, sterile gown, sterile gloves, large sterile sheet, appropriate hand hygiene, and 2% chlorhexidine for cutaneous antisepsis (or acceptable alternative antiseptic per current guidelines) were followed for this procedure. The pre-existing tube was evaluated under fluoroscopy including the administration of contrast implanted in normal position. The tube was removed over the wire and replaced with new 20 Gren[place] G-tube. Position was confirmed with fluoroscopy including contrast administration. No immediate complications were identified. Total fluoroscopy time: 0.7 min Dose area product: 3 Gycm2 Impression: Fluoroscopically guided replacement of gastrostomy tube ORDERED: AEROBIC CULT GS COMMENTS: G TUBE DRINAGE Has specimen been collected/obtained? Y Procedure Result AEROBIC CULTURE PENDING AEROBIC RES 1 PENDING GRAM STAIN Final Final report GRAM STAIN RESULT 1 Final Comment Rare white blood cells. GRAM STAIN RESULT 2 Final No organisms seen Performed at: - [facility] [id number] [facility] [address], [place], [place] [id number] Hearing Aid Assistant: COBY Eddy MD, Phone: [phone] - Laboratory Tests Test 12/20/18 04:30 12/20/18 04:35 Procalcitonin < 0.10 ng/mL (0.00-0.10) C-Reactive Protein, Quantitative 2.4 mg/L (0-3.3) Assessment and Plan Assessmemt and Plan Problems Medical Problems: (1) Elevated lactic acid level Status: Acute Comment Review of Relevant I have reviewed the following items judi (where applicable) has been applied. Labs Laboratory Tests Test 12/20/18 04:30 12/20/18 04:35 Procalcitonin < 0.10 ng/mL (0.00-0.10) C-Reactive Protein, Quantitative 2.4 mg/L (0-3.3) Laboratory Tests Test 12/20/18 04:30 12/20/18 04:35 Procalcitonin < 0.10 ng/mL (0.00-0.10) C-Reactive Protein, Quantitative 2.4 mg/L (0-3.3) Microbiology 12/17/18 Aerobic Culture, Resulted Pending 12/17/18 Aerobic Culture Result 1 (DAISHA), Resulted Pending 12/17/18 Gram Stain - Final, Resulted 12/17/18 Gram Stain Result 1 (DAISHA) - Final, Resulted 12/17/18 Gram Stain Result 2 (DAISHA) - Final, Resulted 12/17/18 Blood Culture - Preliminary, Resulted NO GROWTH AFTER 2 DAYS 12/17/18 Urine Culture - Final, Complete 12/17/18 Urine Culture Result 1 (DAISHA) - Final, Complete Medications Current Medications Sodium Chloride 1,000 ml @ 1,000 mls/hr Q1H IV Last administered on 12/17/18at 23:43; Start 12/17/18 at 23:00; Stop 12/17/18 at 23:59; Status DC Fentanyl Citrate (Fentanyl 2ml Vial) 50 mcg 1X ONCE IV Last administered on 12/17/18at 23:42; Start 12/17/18 at 23:00; Stop 12/17/18 at 23:01; Status DC Ondansetron HCl (Zofran) 4 mg 1X ONCE IV Last administered on 12/17/18at 23:42; Start 12/17/18 at 23:00; Stop 12/17/18 at 23:01; Status DC Famotidine (Pepcid Vial) 20 mg 1X ONCE IVP Last administered on 12/17/18at 23:42; Start 12/17/18 at 23:00; Stop 12/17/18 at 23:01; Status DC Sodium Chloride 1,000 ml @ 1,000 mls/hr 1X ONCE IV Last administered on 12/18/18at 00:27; Start 12/18/18 at 00:30; Stop 12/18/18 at 01:29; Status DC Ceftriaxone Sodium (Rocephin) 1 gm 1X ONCE IVP Last administered on 12/18/18at 00:27; Start 12/18/18 at 00:30; Stop 12/18/18 at 00:31; Status DC Vancomycin HCl 250 ml @ 250 mls/hr 1X ONCE IV ; Start 12/18/18 at 00:15; Stop 12/18/18 at 01:14; Status UNV Vancomycin HCl 1.75 gm/Sodium Chloride 500 ml @ 250 mls/hr 1X ONCE IV Last administered on 12/18/18at 02:13; Start 12/18/18 at 00:30; Stop 12/18/18 at 02:29; Status DC Vancomycin HCl (Vanco Per Pharmacy) 1 each PRN DAILY PRN MC SEE COMMENTS; Start 12/18/18 at 00:15; Status Cancel Fentanyl Citrate (Fentanyl 2ml Vial) 50 mcg PRN Q2HR PRN IVP SEVERE PAIN 7-10 Last administered on 12/19/18at 17:20; Start 12/18/18 at 02:00 Diphenhydramine HCl (Benadryl) 12.5 mg PRN Q6HRS PRN IVP ITCHING Last administered on 12/18/18at 08:45; Start 12/18/18 at 02:00 Ondansetron HCl (Zofran) 4 mg PRN Q4HRS PRN IVP NAUSEA/VOMITING 1ST CHOICE Last administered on 12/19/18at 13:41; Start 12/18/18 at 02:00 Sodium Chloride 1,000 ml @ 80 mls/hr [id number] IV Last administered on 12/18/18a t 02:14; Start 12/18/18 at 02:00; Stop 12/18/18 at 10:15; Status DC Influenza Virus Vaccine Quadrival (Afluria Quad 2019-20 (3yr Up) Syringe) 0.5 ml ONCE ONCE VAX IM Last administered on 12/18/18at 11:33; Start 12/18/18 at 09:00; Stop 12/18/18 at 09:01; Status DC Ondansetron HCl (Zofran) 4 mg PRN Q8HRS PRN IV NAUSEA/VOMITING; Start 12/18/18 at 03:45; Stop 12/18/18 at 08:00; Status UNV Fentanyl Citrate (Fentanyl 2ml Vial) 50 mcg Q2HR PRN IV PAIN; Start 12/18/18 at 03:45; Stop 12/18/18 at 08:00; Status UNV Sodium Chloride 1,000 ml @ 100 mls/hr Q10H IV ; Start 12/18/18 at 03:36; Stop 12/19/18 at 03:35; Status UNV Alprazolam (Xanax) 0.5 mg PRN TID PRN PO ANXIETY / AGITATION; Start 12/18/18 at 08:30 Docusate Sodium (Colace) 100 mg DAILY PO Last administered on 12/20/18at 09:18; Start 12/18/18 at 09:00 Acetaminophen/ Hydrocodone Bitart (Lortab 10/325) 1 tab PRN Q6HRS PRN PO MODERATE TO SEVERE PAIN Last administered on 12/20/18at 07:02; Start 12/18/18 at 08:30 Lisinopril (Prinivil) 10 mg DAILY PO Last administered on 12/19/18at 08:05; Start 12/18/18 at 09:00 Metoprolol Tartrate (Lopressor) 12.5 mg BID PO Last administered on 12/19/18at 08:06; Start 12/18/18 at 09:00 Pantoprazole Sodium (Protonix) 40 mg BIDAC PO Last administered on 12/20/18at 07:00; Start 12/18/18 at 09:00 Promethazine HCl (Phenergan) 12.5 mg PRN Q6HRS PRN PO NAUSEA/VOMITING; Start 12/18/18 at 12:00 Ropinirole HCl (Requip) 1 mg QHS PO Last administered on 12/19/18at 20:49; Start 12/18/18 at 21:00 Simvastatin (Zocor) 40 mg QHS PO Last administered on 12/19/18at 20:49; Start 12/18/18 at 21:00 Cetirizine HCl (ZyrTEC) 10 mg DAILY PO Last administered on 12/20/18at 09:19; Start 12/18/18 at 09:00 Meclizine HCl (Antivert) 12.5 mg PRN Q4HRS PRN PO DIZZINESS; Start 12/18/18 at 08:45; Stop 12/18/18 at 08:33; Status DC Trazodone HCl (Desyrel) 300 mg QHS PO Last administered on 12/19/18at 20:48; Start 12/18/18 at 21:00 Venlafaxine HCl (Effexor) 50 mg TID PO Last administered on 12/20/18at 09:20; Start 12/18/18 at 09:00 Meclizine HCl (Antivert) 25 mg PRN Q4HRS PRN PO DIZZINESS; Start 12/18/18 at 08:45 Iohexol (Omnipaque 240 Mg/ml) 50 ml STK-MED ONCE .ROUTE ; Start 12/18/18 at 08:37; Stop 12/18/18 at 08:37; Status DC Iohexol (Omnipaque 240 Mg/ml) 50 ml 1X ONCE IJ Last administered on 12/18/18at 09:12; Start 12/18/18 at 09:00; Stop 12/18/18 at 09:01; Status DC Info (CONTRAST GIVEN -- Rx MONITORING) 1 each PRN DAILY PRN MC SEE COMMENTS; Start 12/18/18 at 09:00; Stop 12/20/18 at 08:59; Status DC Phenazopyridine HCl (Pyridium) 200 mg TID PO Last administered on 12/20/18at 09:18; Start 12/18/18 at 14:00 Ciprofloxacin (Cipro) 250 mg BID PO Last administered on 12/20/18at 09:18; Start 12/18/18 at 13:00 Tramadol HCl (Ultram) 50 mg PRN Q6HRS PRN PO MILD TO MODERATE PAIN; Start 12/18/18 at 10:15 Bacitracin (Bacitracin Zinc Oint Pkt) 1 pkt BID TP Last administered on 12/20/18at 09:21; Start 12/18/18 at 21:00 Active Scripts Active Phenazopyridine Hcl 200 Mg Tablet 200 Mg PO TID Cipro (Ciprofloxacin Hcl) 250 Mg Tablet 250 Mg PO BID 7 Days Colace (Docusate Sodium) 100 Mg Capsule 100 Mg PO DAILY Hydrocodone-Apap 10-325 (Hydrocodone Bit/Acetaminophen) 1 Each Tablet 1 Tab PO PRN Q6HRS PRN Protonix (Pantoprazole Sodium) 40 Mg Tablet. 1 Tab PO BID Reported Levocetirizine Dihydrochloride 5 Mg Tablet 1 Tab PO DAILY NITROGLYCERIN SubLingual (Nitroglycerin) 0.4 Mg Tab.subl 1 Tab SL UD Meclizine Hcl 25 Mg Tablet 1 Tab PO PRN Q4HRS PRN Promethazine Hcl 12.5 Mg Tablet 1 Tab PO Q6HRS Marinol (Dronabinol) 5 Mg Capsule 5 Mg PO PRN 6X PER DAY Aspir 81 (Aspirin) 81 Mg Tablet. 1 Tab PO DAILY Trazodone Hcl 300 Mg Tablet 1 Tab PO QHS Linzess (Linaclotide) 290 Mcg Capsule 290 Mcg PO DAILY Metoprolol Tartrate 25 Mg Tablet 0.5 Tab PO BID Lisinopril 10 Mg Tablet 1 Tab PO DAILY Zocor (Simvastatin) 40 Mg Tablet 1 Tab PO QHS Requip (Ropinirole Hcl) 1 Mg Tablet 1 Mg PO QHS Xanax (Alprazolam) 0.5 Mg Tablet 0.5 Mg PO TID PRN Effexor Xr (Venlafaxine Hcl) 150 Mg Cap.er.24h 1 Cap PO DAILY Vitals/I & O Vital Sign - Last 24 Hours 12/19/18 12/19/18 12/19/18 12/19/18 13:41 14:11 14:35 15:00 Temp 98.0 98.0 Pulse 75 Resp 18 B/P (MAP) 100/53 (69) Pulse Ox 96 96 96 O2 Delivery Room Air Room Air Room Air Room Air 12/19/18 12/19/18 12/19/18 12/19/18 15:35 17:20 18:01 19:15 Temp 97.7 97.7 Pulse 73 Resp 16 16 18 B/P (MAP) 103/37 (59) Pulse Ox 96 O2 Delivery Room Air Room Air Room Air Room Air 12/19/18 12/19/18 12/19/18 12/19/18 20:00 20:48 21:58 23:13 Temp 97.9 97.9 Pulse 71 Resp 20 20 16 B/P (MAP) 83/35 (51) Pulse Ox 96 96 99 O2 Delivery Room Air Room Air Room Air Room Air 12/20/18 12/20/18 12/20/18 12/20/18 03:13 07:00 07:02 08:02 Temp 97.9 98.6 97.9 98.6 Pulse 70 75 Resp 18 16 20 20 B/P (MAP) 97/50 (66) 115/63 (80) Pulse Ox 95 95 95 O2 Delivery Room Air Room Air Room Air Room Air 12/20/18 09:00 Pulse 75 B/P (MAP) 115/63 Intake and Output 12/19/18 12/19/18 12/20/18 15:00 23:00 07:00 Intake Total 600 ml 240 ml 480 ml Balance 600 ml 240 ml 480 ml SHABBIR LEONE MD Dec 20, 2018 11:16
[2018-12-20 11:34] LABS: BASO # 0.1 x10^3/uL (0.0-0.2); BASO % 1 % (0-3); EOS # 0.3 x10^3/uL (0.0-0.7); EOS % 6 % (0-3); HEMATOCRIT 30.2 % (36.0-47.0); HEMOGLOBIN 9.7 g/dL (12.0-15.5); LYMPH # 1.4 x10^3/uL (1.0-4.8); LYMPH % 29 % (24-48); MEAN CORPUSCULAR HEMOGLOBIN 25 pg (25-35); MEAN CORPUSCULAR HGB CONC 32 g/dL (31-37); MEAN CORPUSCULAR VOLUME 79 fL (79-100); MONO # 0.2 x10^3/uL (0.0-1.1); MONO % 4 % (0-9); NEUT % 60 % (31-73); PLATELET COUNT 176 x10^3/uL (140-400); RED BLOOD COUNT 3.82 x10^6/uL (3.50-5.40); RED CELL DISTRIBUTION WIDTH 15.9 % (11.5-14.5)
--- NOTE | 2018-12-20 13:46 | PDOC ---
SURGICAL PROGRESS NOTE Subjective Pt with c/o fatigue, reports low blood pressure Vital Signs Vital Signs Date Time Temp Pulse Resp B/P (MAP) Pulse Ox O2 Delivery O2 Flow Rate FiO2 12/20/18 11:00 97.7 70 14 101/63 (76) 96 Room Air 97.7 I&O Intake and Output 12/20/18 07:00 Intake Total 1320 ml Balance 1320 ml Intake Oral 1320 ml # Voids 4 General: Alert, Oriented X3, Cooperative, No acute distress Abdomen: Soft, No tenderness, Other (G-tube in place) Labs Laboratory Tests Test 12/20/18 04:30 12/20/18 04:35 12/20/18 11:20 Procalcitonin < 0.10 ng/mL (0.00-0.10) C-Reactive Protein, Quantitative 2.4 mg/L (0-3.3) White Blood Count 5.0 x10^3/uL (4.0-11.0) Red Blood Count 3.82 x10^6/uL (3.50-5.40) Hemoglobin 9.7 g/dL (12.0-15.5) Hematocrit 30.2 % (36.0-47.0) Mean Corpuscular Volume 79 fL (79-100) Mean Corpuscular Hemoglobin 25 pg (25-35) Mean Corpuscular Hemoglobin Concent 32 g/dL (31-37) Red Cell Distribution Width 15.9 % (11.5-14.5) Platelet Count 176 x10^3/uL (140-400) Neutrophils (%) (Auto) 60 % (31-73) Lymphocytes (%) (Auto) 29 % (24-48) Monocytes (%) (Auto) 4 % (0-9) Eosinophils (%) (Auto) 6 % (0-3) Basophils (%) (Auto) 1 % (0-3) Neutrophils # (Auto) 3.0 x10^3/uL (1.8-7.7) Lymphocytes # (Auto) 1.4 x10^3/uL (1.0-4.8) Monocytes # (Auto) 0.2 x10^3/uL (0.0-1.1) Eosinophils # (Auto) 0.3 x10^3/uL (0.0-0.7) Basophils # (Auto) 0.1 x10^3/uL (0.0-0.2) Laboratory Tests Test 12/20/18 04:30 12/20/18 04:35 12/20/18 11:20 Procalcitonin < 0.10 ng/mL (0.00-0.10) C-Reactive Protein, Quantitative 2.4 mg/L (0-3.3) White Blood Count 5.0 x10^3/uL (4.0-11.0) Red Blood Count 3.82 x10^6/uL (3.50-5.40) Hemoglobin 9.7 g/dL (12.0-15.5) Hematocrit 30.2 % (36.0-47.0) Mean Corpuscular Volume 79 fL (79-100) Mean Corpuscular Hemoglobin 25 pg (25-35) Mean Corpuscular Hemoglobin Concent 32 g/dL (31-37) Red Cell Distribution Width 15.9 % (11.5-14.5) Platelet Count 176 x10^3/uL (140-400) Neutrophils (%) (Auto) 60 % (31-73) Lymphocytes (%) (Auto) 29 % (24-48) Monocytes (%) (Auto) 4 % (0-9) Eosinophils (%) (Auto) 6 % (0-3) Basophils (%) (Auto) 1 % (0-3) Neutrophils # (Auto) 3.0 x10^3/uL (1.8-7.7) Lymphocytes # (Auto) 1.4 x10^3/uL (1.0-4.8) Monocytes # (Auto) 0.2 x10^3/uL (0.0-1.1) Eosinophils # (Auto) 0.3 x10^3/uL (0.0-0.7) Basophils # (Auto) 0.1 x10^3/uL (0.0-0.2) Problem List Problems Medical Problems: (1) Elevated lactic acid level Status: Acute Assessment/Plan may benefit from IVF, but will defer to primary defer abx to ID no surgical plans. WILLIAM QUACH MD Dec 20, 2018 13:46
[2018-12-20] MEDS: LACTOBACILLUS RHAMNOSUS GG 1 CAPSULE. PO SCH ×2 (14:44→21:00)
[2018-12-20 15:00] VITALS: BP 109/62
[2018-12-20] MEDS: AMINO AC 3%/ELECTROLYTE/GLYCER 1,000 ML IV SCH (15:37)
[2018-12-20] MEDS: diphenhydrAMINE 50 MG/ML VIAL IVP PRN (18:33)
[2018-12-20 19:15] VITALS: BP 134/66
[2018-12-20] MEDS: rOPINIRole 1 MG TABLET. PO SCH (20:38)
[2018-12-20] MEDS: SIMVASTATIN 40 MG TABLET. PO SCH (20:38)
[2018-12-20] MEDS: traZODone 100 MG TABLET. PO SCH (20:38)
[2018-12-20] MEDS: fentaNYL PF VIAL 100 MCG/2 ML VIAL IVP PRN (20:40)
[2018-12-20 23:20] VITALS: BP 113/52
[2018-12-21] MEDS: diphenhydrAMINE 50 MG/ML VIAL IVP PRN (00:45)
[2018-12-21] MEDS: HYDROcodone/APAP 10/325 1 TAB TABLET PO PRN ×2 (03:09→12:20)
[2018-12-21] MEDS: AMINO AC 3%/ELECTROLYTE/GLYCER 1,000 ML IV SCH (03:09)
[2018-12-21 03:19] VITALS: BP 99/34
[2018-12-21] MEDS: PANTOPRAZOLE 40 MG TABLET.DR. PO SCH (05:29)
[2018-12-21 07:00] VITALS: BP 129/51
[2018-12-21] MEDS: PHENAZOPYRIDINE 200 MG TABLET. PO SCH ×2 (08:15→14:00)
[2018-12-21] MEDS: VENLAFAXINE 50 MG TABLET. PO SCH ×2 (08:15→14:00)
[2018-12-21] MEDS: CIPROFLOXACIN HCL 250 MG TABLET. PO SCH (08:16)
[2018-12-21] MEDS: LACTOBACILLUS RHAMNOSUS GG 1 CAPSULE. PO SCH (08:16)
[2018-12-21] MEDS: DOCUSATE SODIUM 100 MG CAPSULE. PO SCH (08:16)
[2018-12-21] MEDS: CETIRIZINE HCL 10 MG TABLET. PO SCH (08:16)
[2018-12-21] MEDS: LISINOPRIL 10 MG TABLET PO SCH (08:17)
[2018-12-21] MEDS: METOPROLOL TART IMMED RELEASE 25 MG TABLET. PO SCH (08:18)
--- NOTE | 2018-12-21 08:24 | PDOC ---
HUGH REY MANAGING ATTORNEY 12/21/18 0824: SURGICAL PROGRESS NOTE Subjective lower abdominal pain/bladder pressure the same tolerating diet g tube decompression prn Vital Signs Vital Signs Date Time Temp Pulse Resp B/P (MAP) Pulse Ox O2 Delivery O2 Flow Rate FiO2 12/21/18 08:18 119/51 12/21/18 08:16 Room Air 12/21/18 03:19 98.3 72 16 100 98.3 12/20/18 23:20 3.0 I&O Intake and Output 12/21/18 07:00 Intake Total 1720 ml Balance 1720 ml Intake Oral 720 ml IV Total 1000 ml # Voids 4 General: Alert, Oriented X3, Cooperative, No acute distress Abdomen: Soft, Other (g tube appears well) Labs Laboratory Tests Test 12/20/18 04:30 12/20/18 04:35 12/20/18 11:20 Procalcitonin < 0.10 ng/mL (0.00-0.10) C-Reactive Protein, Quantitative 2.4 mg/L (0-3.3) White Blood Count 5.0 x10^3/uL (4.0-11.0) Red Blood Count 3.80 x10^6/uL (3.50-5.70) Hemoglobin 9.7 g/dL (12.0-15.5) Hematocrit 30.2 % (36.0-47.0) Mean Corpuscular Volume 79 fL (79-100) Mean Corpuscular Hemoglobin 25 pg (25-35) Mean Corpuscular Hemoglobin Concent 32 g/dL (31-37) Red Cell Distribution Width 15.9 % (11.5-14.5) Platelet Count 176 x10^3/uL (140-400) Neutrophils (%) (Auto) 60 % (31-73) Lymphocytes (%) (Auto) 29 % (24-48) Monocytes (%) (Auto) 4 % (0-9) Eosinophils (%) (Auto) 6 % (0-3) Basophils (%) (Auto) 1 % (0-3) Neutrophils # (Auto) 3.0 x10^3/uL (1.8-7.7) Lymphocytes # (Auto) 1.4 x10^3/uL (1.0-4.8) Monocytes # (Auto) 0.2 x10^3/uL (0.0-1.1) Eosinophils # (Auto) 0.3 x10^3/uL (0.0-0.7) Basophils # (Auto) 0.1 x10^3/uL (0.0-0.2) Absolute Reticulocyte Count 0.064 x10^6/uL (0.020-0.120) Percent Reticulocyte Count 1.7 % (0.5-2.3) Immature Reticulocyte Fraction 0.34 (0.20-0.60) Iron Level 27 ug/dL (50-170) Total Iron Binding Capacity 337 ug/dL (250-450) Iron Saturation 8 % (15-34) Laboratory Tests Test 12/20/18 11:20 White Blood Count 5.0 x10^3/uL (4.0-11.0) Red Blood Count 3.80 x10^6/uL (3.50-5.70) Hemoglobin 9.7 g/dL (12.0-15.5) Hematocrit 30.2 % (36.0-47.0) Mean Corpuscular Volume 79 fL (79-100) Mean Corpuscular Hemoglobin 25 pg (25-35) Mean Corpuscular Hemoglobin Concent 32 g/dL (31-37) Red Cell Distribution Width 15.9 % (11.5-14.5) Platelet Count 176 x10^3/uL (140-400) Neutrophils (%) (Auto) 60 % (31-73) Lymphocytes (%) (Auto) 29 % (24-48) Monocytes (%) (Auto) 4 % (0-9) Eosinophils (%) (Auto) 6 % (0-3) Basophils (%) (Auto) 1 % (0-3) Neutrophils # (Auto) 3.0 x10^3/uL (1.8-7.7) Lymphocytes # (Auto) 1.4 x10^3/uL (1.0-4.8) Monocytes # (Auto) 0.2 x10^3/uL (0.0-1.1) Eosinophils # (Auto) 0.3 x10^3/uL (0.0-0.7) Basophils # (Auto) 0.1 x10^3/uL (0.0-0.2) Absolute Reticulocyte Count 0.064 x10^6/uL (0.020-0.120) Percent Reticulocyte Count 1.7 % (0.5-2.3) Immature Reticulocyte Fraction 0.34 (0.20-0.60) Iron Level 27 ug/dL (50-170) Total Iron Binding Capacity 337 ug/dL (250-450) Iron Saturation 8 % (15-34) Problem List Problems Medical Problems: (1) Elevated lactic acid level Status: Acute Assessment/Plan medical management no surgical needs WILLIAM QUACH MD 12/21/18 1411: SURGICAL PROGRESS NOTE Assessment/Plan Pt seen and examined. Agree with Ms. Rey's note Pt with c/o fatigue abd soft, ND, NTTP, G-tube intact OK to d/c home f/u PRN HUGH REY APRN Dec 21, 2018 08:24 WILLIAM QUACH MD Dec 21, 2018 14:11
--- NOTE | 2018-12-21 09:25 | PDOC ---
Infectious Disease Note Subjective Subjective Improved pain about G-tube No F/C/cough/SOA/CP/diarrhea ROS ROS o/w neg Vital Sign Vital Signs Vital Signs Date Time Temp Pulse Resp B/P (MAP) Pulse Ox O2 Delivery O2 Flow Rate FiO2 12/21/18 08:18 119/51 12/21/18 08:16 Room Air 12/21/18 07:00 98.5 69 18 95 98.5 12/20/18 23:20 3.0 Physical Exam PHYSICAL EXAM GENERAL: Propped up in bed, alert, appears comfortable. Looks well HEENT: Pupils equally round. Oropharynx pink and moist. NECK: Supple. LUNGS: mild LLL rhonchi HEART: S1, S2. ABDOMEN: Obese, soft, mildly tender around PEG tube site. No redness or drainage noted. EXTREMITIES: No gross edema or cyanosis. SKIN: Warm to touch. No signs or rash. NEUROLOGIC: Alert and oriented x 3. PIV Labs Lab Laboratory Tests Test 12/20/18 11:20 White Blood Count 5.0 x10^3/uL (4.0-11.0) Red Blood Count 3.80 x10^6/uL (3.50-5.70) Hemoglobin 9.7 g/dL (12.0-15.5) Hematocrit 30.2 % (36.0-47.0) Mean Corpuscular Volume 79 fL (79-100) Mean Corpuscular Hemoglobin 25 pg (25-35) Mean Corpuscular Hemoglobin Concent 32 g/dL (31-37) Red Cell Distribution Width 15.9 % (11.5-14.5) Platelet Count 176 x10^3/uL (140-400) Neutrophils (%) (Auto) 60 % (31-73) Lymphocytes (%) (Auto) 29 % (24-48) Monocytes (%) (Auto) 4 % (0-9) Eosinophils (%) (Auto) 6 % (0-3) Basophils (%) (Auto) 1 % (0-3) Neutrophils # (Auto) 3.0 x10^3/uL (1.8-7.7) Lymphocytes # (Auto) 1.4 x10^3/uL (1.0-4.8) Monocytes # (Auto) 0.2 x10^3/uL (0.0-1.1) Eosinophils # (Auto) 0.3 x10^3/uL (0.0-0.7) Basophils # (Auto) 0.1 x10^3/uL (0.0-0.2) Absolute Reticulocyte Count 0.064 x10^6/uL (0.020-0.120) Percent Reticulocyte Count 1.7 % (0.5-2.3) Immature Reticulocyte Fraction 0.34 (0.20-0.60) Iron Level 27 ug/dL (50-170) Total Iron Binding Capacity 337 ug/dL (250-450) Iron Saturation 8 % (15-34) Micro Microbiology 12/17/18 Aerobic Culture - Preliminary, Resulted 12/17/18 Aerobic Culture Result 1 (DAISHA) - Preliminary, Resulted 12/17/18 Gram Stain - Final, Resulted 12/17/18 Gram Stain Result 1 (DAISHA) - Final, Resulted 12/17/18 Gram Stain Result 2 (DAISHA) - Final, Resulted 12/17/18 Blood Culture - Preliminary, Resulted NO GROWTH AFTER 3 DAYS 12/17/18 Urine Culture - Final, Complete 12/17/18 Urine Culture Result 1 (DAISHA) - Final, Complete Objective Assessment Infected Peg-tube s/p replacement, 12/18. No organisms on gram stain - + Yeast - area looks clean so likely colonization Recent UTI. OP Keflex and Bactrim. UC negative h/o MRSA Multiple abx allergies/intolerances: Augmentin, clarithromycin, levofloxacin Gastroparesis h/o seizures Plan Plan of Care Continue cipro through 12/24 to complete 7 days Procalcitonin and CRP both normal ID to sign off D/w nursing REGINA BANKS MD Dec 21, 2018 09:25
[2018-12-21 10:56] LABS: BASO # 0.1 x10^3/uL (0.0-0.2); BASO % 1 % (0-3); EOS # 0.4 x10^3/uL (0.0-0.7); EOS % 6 % (0-3); HEMATOCRIT 31.9 % (36.0-47.0); HEMOGLOBIN 10.3 g/dL (12.0-15.5); LYMPH # 1.6 x10^3/uL (1.0-4.8); LYMPH % 28 % (24-48); MEAN CORPUSCULAR HEMOGLOBIN 25 pg (25-35); MEAN CORPUSCULAR HGB CONC 32 g/dL (31-37); MEAN CORPUSCULAR VOLUME 79 fL (79-100); MONO # 0.3 x10^3/uL (0.0-1.1); MONO % 4 % (0-9); NEUT # 3.5 x10^3/uL (1.8-7.7); NEUT % 60 % (31-73); PLATELET COUNT 198 x10^3/uL (140-400); RED BLOOD COUNT 4.04 x10^6/uL (3.50-5.40); RED CELL DISTRIBUTION WIDTH 16.6 % (11.5-14.5); WHITE BLOOD COUNT 5.8 x10^3/uL (4.0-11.0)
[2018-12-21 11:00] VITALS: BP 101/40
[2018-12-21 11:24] LABS: ALBUMIN/GLOBULIN RATIO 0.8 (1.0-1.7); CREATININE 0.7 mg/dL (0.6-1.0); GFR 86.2; POTASSIUM 4.6 mmol/L (3.5-5.1); TOTAL BILIRUBIN 0.3 mg/dL (0.2-1.0); TOTAL PROTEIN 6.7 g/dL (6.4-8.2)
--- NOTE | 2018-12-21 12:57 | PDOC ---
PROGRESS NOTES Chief Complaint Chief Complaint Assessment Infected Peg-tube s/p replacement, 12/18. anemia Recent UTI. h/o MRSA hx Gastroparesis hx seizures plan cipro Fluoroscopically guided replacement of gastrostomy tube iv procalamine 80 cc/ hr surgery following fe panel, retic 27 min pt exam, chart review, > 50% of time spent with exam, chart review, pt care coordination History of Present Illness History of Present Illness Ms Everett is a 58yo F w/ PMHx Obesity, previous fundoplication, polypharmacy, hyperlipidemia, CAD, hypertension, arthritis, depression, anxiety, GERD, constipation who presented with abdominal pain Vitals Vitals Vital Signs Date Time Temp Pulse Resp B/P (MAP) Pulse Ox O2 Delivery O2 Flow Rate FiO2 12/21/18 12:20 Room Air 12/21/18 11:00 98.1 76 18 101/40 (60) 96 98.1 12/20/18 23:20 3.0 Physical Exam Physical Exam GENERAL: Propped up in bed, alert, appears comfortable. Looks well HEENT: Pupils equally round. Oropharynx pink and moist. NECK: Supple. LUNGS: mild LLL rhonchi HEART: S1, S2. ABDOMEN: Obese, soft, mildly tender around PEG tube site. No redness or drainage noted. EXTREMITIES: No gross edema or cyanosis. SKIN: Warm to touch. No signs or rash. NEUROLOGIC: Alert and oriented x 3. PIV General: Alert, Oriented X3, Cooperative, No acute distress Heart: Regular rate, Normal S1, Normal S2, No murmurs Lungs: Clear, Crackles Abdomen: Soft, Other (g tube appears well) Extremities: No clubbing, No cyanosis, No edema, Normal pulses, No tenderness/swelling Skin: No rashes, No breakdown, No significant lesion Labs LABS Laboratory Tests Test 12/21/18 10:35 White Blood Count 5.8 x10^3/uL (4.0-11.0) Red Blood Count 4.04 x10^6/uL (3.50-5.40) Hemoglobin 10.3 g/dL (12.0-15.5) Hematocrit 31.9 % (36.0-47.0) Mean Corpuscular Volume 79 fL (79-100) Mean Corpuscular Hemoglobin 25 pg (25-35) Mean Corpuscular Hemoglobin Concent 32 g/dL (31-37) Red Cell Distribution Width 16.6 % (11.5-14.5) Platelet Count 198 x10^3/uL (140-400) Neutrophils (%) (Auto) 60 % (31-73) Lymphocytes (%) (Auto) 28 % (24-48) Monocytes (%) (Auto) 4 % (0-9) Eosinophils (%) (Auto) 6 % (0-3) Basophils (%) (Auto) 1 % (0-3) Neutrophils # (Auto) 3.5 x10^3/uL (1.8-7.7) Lymphocytes # (Auto) 1.6 x10^3/uL (1.0-4.8) Monocytes # (Auto) 0.3 x10^3/uL (0.0-1.1) Eosinophils # (Auto) 0.4 x10^3/uL (0.0-0.7) Basophils # (Auto) 0.1 x10^3/uL (0.0-0.2) Sodium Level 142 mmol/L (136-145) Potassium Level 4.6 mmol/L (3.5-5.1) Chloride Level 106 mmol/L (98-107) Carbon Dioxide Level 31 mmol/L (21-32) Anion Gap 5 (6-14) Blood Urea Nitrogen 14 mg/dL (7-20) Creatinine 0.7 mg/dL (0.6-1.0) Estimated GFR (Cockcroft-Gault) 86.2 BUN/Creatinine Ratio 20 (6-20) Glucose Level 100 mg/dL (70-99) Calcium Level 9.0 mg/dL (8.5-10.1) Total Bilirubin 0.3 mg/dL (0.2-1.0) Aspartate Amino Transf (AST/SGOT) 13 U/L (15-37) Alanine Aminotransferase (ALT/SGPT) 13 U/L (14-59) Alkaline Phosphatase 58 U/L (46-116) Total Protein 6.7 g/dL (6.4-8.2) Albumin 3.0 g/dL (3.4-5.0) Albumin/Globulin Ratio 0.8 (1.0-1.7) Assessment and Plan Assessmemt and Plan Problems Medical Problems: (1) Elevated lactic acid level Status: Acute Comment Review of Relevant I have reviewed the following items judi (where applicable) has been applied. Labs Laboratory Tests Test 12/20/18 04:30 12/20/18 04:35 12/20/18 11:20 12/21/18 10:35 Procalcitonin < 0.10 ng/mL (0.00-0.10) C-Reactive Protein, Quantitative 2.4 mg/L (0-3.3) White Blood Count 5.0 x10^3/uL (4.0-11.0) 5.8 x10^3/uL (4.0-11.0) Red Blood Count 3.80 x10^6/uL (3.50-5.70) 4.04 x10^6/uL (3.50-5.40) Hemoglobin 9.7 g/dL (12.0-15.5) 10.3 g/dL (12.0-15.5) Hematocrit 30.2 % (36.0-47.0) 31.9 % (36.0-47.0) Mean Corpuscular Volume 79 fL (79-100) 79 fL (79-100) Mean Corpuscular Hemoglobin 25 pg (25-35) 25 pg (25-35) Mean Corpuscular Hemoglobin Concent 32 g/dL (31-37) 32 g/dL (31-37) Red Cell Distribution Width 15.9 % (11.5-14.5) 16.6 % (11.5-14.5) Platelet Count 176 x10^3/uL (140-400) 198 x10^3/uL (140-400) Neutrophils (%) (Auto) 60 % (31-73) 60 % (31-73) Lymphocytes (%) (Auto) 29 % (24-48) 28 % (24-48) Monocytes (%) (Auto) 4 % (0-9) 4 % (0-9) Eosinophils (%) (Auto) 6 % (0-3) 6 % (0-3) Basophils (%) (Auto) 1 % (0-3) 1 % (0-3) Neutrophils # (Auto) 3.0 x10^3/uL (1.8-7.7) 3.5 x10^3/uL (1.8-7.7) Lymphocytes # (Auto) 1.4 x10^3/uL (1.0-4.8) 1.6 x10^3/uL (1.0-4.8) Monocytes # (Auto) 0.2 x10^3/uL (0.0-1.1) 0.3 x10^3/uL (0.0-1.1) Eosinophils # (Auto) 0.3 x10^3/uL (0.0-0.7) 0.4 x10^3/uL (0.0-0.7) Basophils # (Auto) 0.1 x10^3/uL (0.0-0.2) 0.1 x10^3/uL (0.0-0.2) Absolute Reticulocyte Count 0.064 x10^6/uL (0.020-0.120) Percent Reticulocyte Count 1.7 % (0.5-2.3) Immature Reticulocyte Fraction 0.34 (0.20-0.60) Iron Level 27 ug/dL (50-170) Total Iron Binding Capacity 337 ug/dL (250-450) Iron Saturation 8 % (15-34) Sodium Level 142 mmol/L (136-145) Potassium Level 4.6 mmol/L (3.5-5.1) Chloride Level 106 mmol/L (98-107) Carbon Dioxide Level 31 mmol/L (21-32) Anion Gap 5 (6-14) Blood Urea Nitrogen 14 mg/dL (7-20) Creatinine 0.7 mg/dL (0.6-1.0) Estimated GFR (Cockcroft-Gault) 86.2 BUN/Creatinine Ratio 20 (6-20) Glucose Level 100 mg/dL (70-99) Calcium Level 9.0 mg/dL (8.5-10.1) Total Bilirubin 0.3 mg/dL (0.2-1.0) Aspartate Amino Transf (AST/SGOT) 13 U/L (15-37) Alanine Aminotransferase (ALT/SGPT) 13 U/L (14-59) Alkaline Phosphatase 58 U/L (46-116) Total Protein 6.7 g/dL (6.4-8.2) Albumin 3.0 g/dL (3.4-5.0) Albumin/Globulin Ratio 0.8 (1.0-1.7) Laboratory Tests Test 10/28/19 10:35 White Blood Count 5.8 x10^3/uL (4.0-11.0) Red Blood Count 4.04 x10^6/uL (3.50-5.40) Hemoglobin 10.3 g/dL (12.0-15.5) Hematocrit 31.9 % (36.0-47.0) Mean Corpuscular Volume 79 fL (79-100) Mean Corpuscular Hemoglobin 25 pg (25-35) Mean Corpuscular Hemoglobin Concent 32 g/dL (31-37) Red Cell Distribution Width 16.6 % (11.5-14.5) Platelet Count 198 x10^3/uL (140-400) Neutrophils (%) (Auto) 60 % (31-73) Lymphocytes (%) (Auto) 28 % (24-48) Monocytes (%) (Auto) 4 % (0-9) Eosinophils (%) (Auto) 6 % (0-3) Basophils (%) (Auto) 1 % (0-3) Neutrophils # (Auto) 3.5 x10^3/uL (1.8-7.7) Lymphocytes # (Auto) 1.6 x10^3/uL (1.0-4.8) Monocytes # (Auto) 0.3 x10^3/uL (0.0-1.1) Eosinophils # (Auto) 0.4 x10^3/uL (0.0-0.7) Basophils # (Auto) 0.1 x10^3/uL (0.0-0.2) Sodium Level 142 mmol/L (136-145) Potassium Level 4.6 mmol/L (3.5-5.1) Chloride Level 106 mmol/L (98-107) Carbon Dioxide Level 31 mmol/L (21-32) Anion Gap 5 (6-14) Blood Urea Nitrogen 14 mg/dL (7-20) Creatinine 0.7 mg/dL (0.6-1.0) Estimated GFR (Cockcroft-Gault) 86.2 BUN/Creatinine Ratio 20 (6-20) Glucose Level 100 mg/dL (70-99) Calcium Level 9.0 mg/dL (8.5-10.1) Total Bilirubin 0.3 mg/dL (0.2-1.0) Aspartate Amino Transf (AST/SGOT) 13 U/L (15-37) Alanine Aminotransferase (ALT/SGPT) 13 U/L (14-59) Alkaline Phosphatase 58 U/L (46-116) Total Protein 6.7 g/dL (6.4-8.2) Albumin 3.0 g/dL (3.4-5.0) Albumin/Globulin Ratio 0.8 (1.0-1.7) Microbiology 12/17/18 Aerobic Culture - Preliminary, Resulted 12/17/18 Aerobic Culture Result 1 (DAISHA) - Preliminary, Resulted 12/17/18 Gram Stain - Final, Resulted 12/17/18 Gram Stain Result 1 (DAISHA) - Final, Resulted 12/17/18 Gram Stain Result 2 (DAISHA) - Final, Resulted 12/17/18 Blood Culture - Preliminary, Resulted NO GROWTH AFTER 3 DAYS 12/17/18 Urine Culture - Final, Complete 12/17/18 Urine Culture Result 1 (DAISHA) - Final, Complete Medications Current Medications Sodium Chloride 1,000 ml @ 1,000 mls/hr Q1H IV Last administered on 12/17/18at 23:43; Start 12/17/18 at 23:00; Stop 12/17/18 at 23:59; Status DC Fentanyl Citrate (Fentanyl 2ml Vial) 50 mcg 1X ONCE IV Last administered on 12/17/18at 23:42; Start 12/17/18 at 23:00; Stop 12/17/18 at 23:01; Status DC Ondansetron HCl (Zofran) 4 mg 1X ONCE IV Last administered on 12/17/18at 23:42; Start 12/17/18 at 23:00; Stop 12/17/18 at 23:01; Status DC Famotidine (Pepcid Vial) 20 mg 1X ONCE IVP Last administered on 12/17/18at 23:42; Start 12/17/18 at 23:00; Stop 12/17/18 at 23:01; Status DC Sodium Chloride 1,000 ml @ 1,000 mls/hr 1X ONCE IV Last administered on at 00:27; Start 12/18/18 at 00:30; Stop 12/18/18 at 01:29; Status DC Ceftriaxone Sodium (Rocephin) 1 gm 1X ONCE IVP Last administered on 12/18/18at 00:27; Start 12/18/18 at 00:30; Stop 12/18/18 at 00:31; Status DC Vancomycin HCl 250 ml @ 250 mls/hr 1X ONCE IV ; Start 12/18/18 at 00:15; Stop 12/18/18 at 01:14; Status UNV Vancomycin HCl 1.75 gm/Sodium Chloride 500 ml @ 250 mls/hr 1X ONCE IV Last administered on 12/18/18at 02:13; Start 12/18/18 at 00:30; Stop 12/18/18 at 02:29; Status DC Vancomycin HCl (Vanco Per Pharmacy) 1 each PRN DAILY PRN MC SEE COMMENTS; Start 12/18/18 at 00:15; Status Cancel Fentanyl Citrate (Fentanyl 2ml Vial) 50 mcg PRN Q2HR PRN IVP SEVERE PAIN 7-10 Last administered on 12/20/18at 20:40; Start 12/18/18 at 02:00 Diphenhydramine HCl (Benadryl) 12.5 mg PRN Q6HRS PRN IVP ITCHING Last administered on 12/21/18at 00:45; Start 12/18/18 at 02:00 Ondansetron HCl (Zofran) 4 mg PRN Q4HRS PRN IVP NAUSEA/VOMITING 1ST CHOICE Last administered on 12/19/18at 13:41; Start 12/18/18 at 02:00 Sodium Chloride 1,000 ml @ 80 mls/hr [id number] IV Last administered on 12/18/18at 02:14; Start 12/18/18 at 02:00; Stop 12/18/18 at 10:15; Status DC Influenza Virus Vaccine Quadrival (Afluria Quad 2019-20 (3yr Up) Syringe) 0.5 ml ONCE ONCE VAX IM Last administered on 12/18/18at 11:33; Start 12/18/18 at 09:00; Stop 12/18/18 at 09:01; Status DC Ondansetron HCl (Zofran) 4 mg PRN Q8HRS PRN IV NAUSEA/VOMITING; Start 12/18/18 at 03:45; Stop 12/18/18 at 08:00; Status UNV Fentanyl Citrate (Fentanyl 2ml Vial) 50 mcg Q2HR PRN IV PAIN; Start 12/18/18 at 03:45; Stop 12/18/18 at 08:00; Status UNV Sodium Chloride 1,000 ml @ 100 mls/hr Q10H IV ; Start 12/18/18 at 03:36; Stop 12/19/18 at 03:35; Status UNV Alprazolam (Xanax) 0.5 mg PRN TID PRN PO ANXIETY / AGITATION; Start 12/18/18 at 08:30 Docusate Sodium (Colace) 100 mg DAILY PO Last administered on 12/21/18 08:16; Start 12/18/18 at 09:00 Acetaminophen/ Hydrocodone Bitart (Lortab 10/325) 1 tab PRN Q6HRS PRN PO MODERATE TO SEVERE PAIN Last administered on 12/21/18 12:20; Start 12/18/18 at 08:30 Lisinopril (Prinivil) 10 mg DAILY PO Last administered on 12/21/18 08:17; Start 12/18/18 at 09:00 Metoprolol Tartrate (Lopressor) 12.5 mg BID PO Last administered on 12/21/18 08:18; Start 12/18/18 at 09:00 Pantoprazole Sodium (Protonix) 40 mg BIDAC PO Last administered on 12/21/18 05:29; Start 12/18/18 at 09:00 Promethazine HCl (Phenergan) 12.5 mg PRN Q6HRS PRN PO NAUSEA/VOMITING; Start 12/18/18 at 12:00 Ropinirole HCl (Requip) 1 mg QHS PO Last administered on 12/20/18 20:38; Start 12/18/18 at 21:00 Simvastatin (Zocor) 40 mg QHS PO Last administered on 12/20/18 20:38; Start 12/18/18 at 21:00 Cetirizine HCl (ZyrTEC) 10 mg DAILY PO Last administered on 12/21/18 08:16; Start 12/18/18 at 09:00 Meclizine HCl (Antivert) 12.5 mg PRN Q4HRS PRN PO DIZZINESS; Start 12/18/18 at 08:45; Stop 12/18/18 at 08:33; Status DC Trazodone HCl (Desyrel) 300 mg QHS PO Last administered on 10/27/19at 20:38; Start 12/18/18 at 21:00 Venlafaxine HCl (Effexor) 50 mg TID PO Last administered on 12/21/18 08:15; Start 12/18/18 at 09:00 Meclizine HCl (Antivert) 25 mg PRN Q4HRS PRN PO DIZZINESS Last administered on 12/21/18at 12:20; Start 12/18/18 at 08:45 Iohexol (Omnipaque 240 Mg/ml) 50 ml STK-MED ONCE .ROUTE ; Start 12/18/18 at 08:37; Stop 12/18/18 at 08:37; Status DC Iohexol (Omnipaque 240 Mg/ml) 50 ml 1X ONCE IJ Last administered on 12/18/18at 09:12; Start 12/18/18 at 09:00; Stop 12/18/18 at 09:01; Status DC Info (CONTRAST GIVEN -- Rx MONITORING) 1 each PRN DAILY PRN MC SEE COMMENTS; Start 12/18/18 at 09:00; Stop 12/20/18 at 08:59; Status DC Phenazopyridine HCl (Pyridium) 200 mg TID PO Last administered on 12/21/18 08:15; Start 12/18/18 at 14:00 Ciprofloxacin (Cipro) 250 mg BID PO Last administered on 12/21/18 08:16; Start 12/18/18 at 13:00 Tramadol HCl (Ultram) 50 mg PRN Q6HRS PRN PO MILD TO MODERATE PAIN Last administered on 12/21/18 08:16; Start 12/18/18 at 10:15 Bacitracin (Bacitracin Zinc Oint Pkt) 1 pkt BID TP Last administered on 12/20/18at 20:40; Start 12/18/18 at 21:00 Lactobacillus Rhamnosus (Culturelle) 1 cap BID PO Last administered on 12/21/18 08:16; Start 12/20/18 at 13:00 Amino Acids/ Glycerin/ Electrolytes 1,000 ml @ 80 mls/hr [id number] IV Last administered on 12/21/18 03:09; Start 12/20/18 at 14:30 Active Scripts Active Phenazopyridine Hcl 200 Mg Tablet 200 Mg PO TID Cipro (Ciprofloxacin Hcl) 250 Mg Tablet 250 Mg PO BID 7 Days Colace (Docusate Sodium) 100 Mg Capsule 100 Mg PO DAILY Hydrocodone-Apap 10-325 (Hydrocodone Bit/Acetaminophen) 1 Each Tablet 1 Tab PO PRN Q6HRS PRN Protonix (Pantoprazole Sodium) 40 Mg Tablet.dr 1 Tab PO BID Reported Levocetirizine Dihydrochloride 5 Mg Tablet 1 Tab PO DAILY NITROGLYCERIN SubLingual (Nitroglycerin) 0.4 Mg Tab.subl 1 Tab SL UD Meclizine Hcl 25 Mg Tablet 1 Tab PO PRN Q4HRS PRN Promethazine Hcl 12.5 Mg Tablet 1 Tab PO Q6HRS Marinol (Dronabinol) 5 Mg Capsule 5 Mg PO PRN 6X PER DAY Aspir 81 (Aspirin) 81 Mg Tablet.dr 1 Tab PO DAILY Trazodone Hcl 300 Mg Tablet 1 Tab PO QHS Linzess (Linaclotide) 290 Mcg Capsule 290 Mcg PO DAILY Metoprolol Tartrate 25 Mg Tablet 0.5 Tab PO BID Lisinopril 10 Mg Tablet 1 Tab PO DAILY Zocor (Simvastatin) 40 Mg Tablet 1 Tab PO QHS Requip (Ropinirole Hcl) 1 Mg Tablet 1 Mg PO QHS Xanax (Alprazolam) 0.5 Mg Tablet 0.5 Mg PO TID PRN Effexor Xr (Venlafaxine Hcl) 150 Mg Cap.er.24h 1 Cap PO DAILY Vitals/I & O Vital Sign - Last 24 Hours 12/20/18 12/20/18 12/20/18 12/20/18 14:53 15:00 15:53 19:15 Temp 98.4 98.1 98.4 98.1 Pulse 86 73 Resp 20 16 20 18 B/P (MAP) 109/62 (78) 134/66 (88) Pulse Ox 95 95 O2 Delivery Room Air Room Air Room Air Room Air 12/20/18 12/20/18 12/20/18 12/20/18 20:16 20:40 20:45 21:03 Pulse 66 Resp 16 14 B/P (MAP) 139/74 O2 Delivery Room Air Room Air Room Air 12/20/18 12/20/18 12/20/18 12/21/18 21:13 22:11 23:20 03:19 Temp 98.3 98.3 98.3 98.3 Pulse 74 72 Resp 16 16 18 16 B/P (MAP) 113/52 (72) 99/34 (55) Pulse Ox 93 100 O2 Delivery Nasal Cannula Room Air O2 Flow Rate 3.0 12/21/18 12/21/18 12/21/18 12/21/18 07:00 08:00 08:16 08:17 Temp 98.5 98.5 Pulse 69 Resp 18 B/P (MAP) 129/51 (77) 119/51 Pulse Ox 95 O2 Delivery Room Air Room Air Room Air 12/21/18 12/21/18 12/21/18 12/21/18 08:18 09:16 11:00 12:20 Temp 98.1 98.1 Pulse 76 Resp 18 B/P (MAP) 119/51 101/40 (60) Pulse Ox 96 O2 Delivery Room Air Room Air Room Air Intake and Output 12/20/18 12/20/18 12/21/18 15:00 23:00 07:00 Intake Total 240 ml 1480 ml Balance 240 ml 1480 ml SARAH BUSH MD Dec 21, 2018 12:57
[2018-12-21] MEDS ORDERED: PRED20TA PO (13:29)
[2018-12-21] MEDS ORDERED: CIPR250T30 PO (13:29)
[2018-12-21] MEDS ORDERED: predniSONE 20 MG TABLET PO ONE (14:15)
[2018-12-21] MEDS: BACITRACIN TOPICAL OINT PACKET. TP SCH (14:16)
== END 2018-12-21 14:25 | disposition home or self-care (01) | DRG 394 ==
LOC: ER 22:16 → 4 NORTH 23:31
PROVIDERS: ADMIT Family Medicine; ATTEND Family Medicine
PROC: 0D20XUZ Change Feeding Device in Upper Intestinal Tract, External Approach (ICD-10-PCS; principal; 2018-12-18)
DX: K94.23 Gastrostomy malfunction (principal); L03.311 Cellulitis of abdominal wall; K94.22 Gastrostomy infection; K21.9 Gastro-esophageal reflux disease without esophagitis; F32.9 Major depressive disorder, single episode, unspecified; M19.90 Unspecified osteoarthritis, unspecified site; E78.00 Pure hypercholesterolemia, unspecified; I10 Essential (primary) hypertension; F43.10 Post-traumatic stress disorder, unspecified; G25.81 Restless legs syndrome; K31.84 Gastroparesis; D64.9 Anemia, unspecified; I25.10 Atherosclerotic heart disease of native coronary artery without angina pectoris; K58.9 Irritable bowel syndrome, unspecified; M79.7 Fibromyalgia; E66.9 Obesity, unspecified; E78.5 Hyperlipidemia, unspecified; G47.30 Sleep apnea, unspecified; F12.90 Cannabis use, unspecified, uncomplicated; Y73.8 Miscellaneous gastroenterology and urology devices associated with adverse incidents, not elsewhere classified; Y92.89 Other specified places as the place of occurrence of the external cause; Z68.28 Body mass index [BMI] 28.0-28.9, adult; Z90.710 Acquired absence of both cervix and uterus; Z90.49 Acquired absence of other specified parts of digestive tract; Z88.1 Allergy status to other antibiotic agents; Z91.041 Radiographic dye allergy status; Z91.040 Latex allergy status; Z88.5 Allergy status to narcotic agent; Z88.0 Allergy status to penicillin; Z88.8 Allergy status to other drugs, medicaments and biological substances; Z91.048 Other nonmedicinal substance allergy status; Z86.73 Personal history of transient ischemic attack (TIA), and cerebral infarction without residual deficits; Z82.3 Family history of stroke; Z81.8 Family history of other mental and behavioral disorders; Z82.49 Family history of ischemic heart disease and other diseases of the circulatory system; Z80.42 Family history of malignant neoplasm of prostate; Z86.14 Personal history of Methicillin resistant Staphylococcus aureus infection; Z87.19 Personal history of other diseases of the digestive system; Z79.82 Long term (current) use of aspirin; Z79.899 Other long term (current) drug therapy
CPT/HCPCS: 36415; 49450; 80053; 81001; 83540; 83550; 83605; 83690; 84145; 85025; 85045; 86140; 87040; 87070; 87086; 87641; 90471; 90686; 96374; 96375; A4215; B4087; J0696; J1200; J2405; J3010; J3370; J3490; J7030; J7040; J7512; J8597; Q9966; 99285-25; G0378

== ENCOUNTER 2021-05-17 08:07 | Outpatient (CLI) | payer BC, MEDICARE ==
[~2021-05-17 08:07] MED LIST changes: +CIPR250T30 PO; +LISI10TA16 PO; -LISI10TA2 PO; +MECL-75 PO; -MECL25TA3 PO; +PHEN-444 PO; +PRED20TA PO
[2021-05-17 08:28] VITALS: BP 128/74
[2021-05-17] MEDS ORDERED: LIDOCAINE WITH 8.4% SOD BICARB 3 ML DISP.SYRIN. ONE (08:29)
[2021-05-17] MEDS ORDERED: LIDOCAINE WITH 8.4% SOD BICARB 3 ML DISP.SYRIN. INJ ONE (08:45)
--- NOTE | 2021-05-17 09:28 | NUR ---
PICC line instructions reviewed with pt. Pt home with family
--- NOTE | 2021-05-17 12:40 | RAD ---
Date: 05/17/2021 Exam: Fluoroscopic and ultrasound guided peripheral central venous catheter placement. Indication: Consent: The procedure was explained in its entirety to the patient or the patients designated repres entative by a member of the treatment team, including a discussion of the risks, benefits and commonl y accepted alternatives to the procedure, as well as the expected consequences of no therapy whatsoev er. Discussion of the risks included, but was not limited to, those that are most frequent and thos e that are rare but possibly severe or life-threatening, as well as the possibility of unforeseen com plications. Discussion: A timeout procedure was performed. The patient was prepped and draped using maximum sterile techniq ue, including the use of: Current guideline approved cutaneous antisepsis, a large sterile sheet to e stablish a sterile field. Additionally the excelsior machine operator wore a hat, mask, sterile gloves, a sterile gown during the procedure as well as practiced acceptable hand hygiene prior to placing the line. 1% lidoc monika was administered for local anesthesia. Ultrasound evaluation demonstrates a patent right basilic vein. [facility] The selected vein was accessed using micropuncture technique. A guidewire was advanced centrally. The PICC line was cut to length, and advanced through a peel-away sheath such that it's tip resides at the cavoatrial junction. The peel-away sheath a sheath was removed. The catheter was s ecured in place. The catheter was found to flush and aspirate normally.. Sterile dressings were appli ed. No immediate complications were identified. Fluoroscopy time: 0.3 minutes Dose area product: 0.3 Gycm2 Impression: Successful placement of a right upper extremity PICC line Electronically signed by: Luis Hammonds MD (05/17/2021 12:37 PM) [id number]
== END 2021-05-17 09:29 | disposition home or self-care (01) ==
LOC: INTRAD 08:07
PROVIDERS: ATTEND Surgery
DX: R11.0 Nausea (principal); I10 Essential (primary) hypertension; E78.00 Pure hypercholesterolemia, unspecified; G47.30 Sleep apnea, unspecified; E66.9 Obesity, unspecified; K21.9 Gastro-esophageal reflux disease without esophagitis; M19.90 Unspecified osteoarthritis, unspecified site; F41.9 Anxiety disorder, unspecified; F32.9 Major depressive disorder, single episode, unspecified; Z79.82 Long term (current) use of aspirin; Z79.899 Other long term (current) drug therapy; Z90.710 Acquired absence of both cervix and uterus; Z98.890 Other specified postprocedural states; Z88.1 Allergy status to other antibiotic agents; Z88.6 Allergy status to analgesic agent; Z88.8 Allergy status to other drugs, medicaments and biological substances; Z72.89 Other problems related to lifestyle
CPT/HCPCS: 36573; C1751; C1892; J3490

== ENCOUNTER 2021-06-14 13:12 | Emergency (ER) | payer BC ==
[~2021-06-14] VITALS: Ht 177.8 cm; Wt 75.0 kg
[~2021-06-14 13:12] MED LIST changes: -VENL150C PO; +VENL150C3 PO
--- NOTE | 2021-06-14 14:07 | PHYS DOC ---
Past Medical History Past Medical History: Anxiety, Arthritis, CAD, Constipation, Depression, GERD, High Cholesterol, Hypertension, Seizure, UTI, Other Additional Past Medical Histor: psuedo seizures, sleep apnea, PTSD, RLS, esophageal rupture, GASTROPARESIS Past Surgical History: Appendectomy, Cholecystectomy, , Hysterectomy, Tonsillectomy, Other Additional Past Surgical Histo: fundaplication GASTRIC TUBE Smoking Status: Never Smoker Alcohol Use: Rarely Drug Use: None General Adult EDM: Chief Complaint: PAIN CONTROL HPI: HPI: Patient is a 61-year-old female who presents today with pain all over. Patient states that she had a PICC line placed in April 2021 due to the need of having TPN therapy due to chronic gastroparesis, she states that yesterday she started experiencing pain all over and called Dr. Good who is the physician that is managing her, he stated for her to stop the TPN therapy and to follow-up in the emergency department [facility]. Patient states she was unable to get a ride yesterday, and got a ride today here to the emergency department and she complaining of pain all over, she states the pain all over is been ongoing for about 2 weeks but worse the last couple of days. Patient denies chest pain, shortness of breath, pain in the right arm where the PICC line is placed out, or fever she states that she has had chills over the last 2 to 3 weeks but has not checked her temperature. Review of Systems: Review of Systems: Constitutional: chills. [] Eyes: Denies change in visual acuity. [] HENT: Denies nasal congestion or sore throat. [] Respiratory: Denies cough or shortness of breath. [] Cardiovascular: Denies chest pain or edema. [] GI: Denies abdominal pain, nausea, vomiting, bloody stools or diarrhea. [] : Denies dysuria. [] Musculoskeletal: Pain all over Integument: Denies rash. [] Neurologic: Denies headache, focal weakness or sensory changes. [] Endocrine: Denies polyuria or polydipsia. [] Lymphatic: Denies swollen glands. [] Psychiatric: Denies depression or anxiety. [] Heart Score: C/O Chest Pain: No Risk Factors: Risk Factors: DM, Current or recent (<one month) smoker, HTN, HLP, family history of CAD, obesity. Risk Scores: Score 0 - 3: 2.5% MACE over next 6 weeks - Discharge Home Score 4 - 6: 20.3% MACE over next 6 weeks - Admit for Clinical Observation Score 7 - 10: 72.7% MACE over next 6 weeks - Early Invasive Strategies Current Medications: Current Medications Medications (Trade) Dose Ordered Sig/Leatha Start Time Stop Time Status Last Admin Dose Admin Fentanyl Citrate (Fentanyl 2ml Vial) 50 mcg 1X ONCE 06/14/21 14:00 06/14/21 14:01 UNV Ondansetron HCl (Zofran) 4 mg 1X ONCE 06/14/21 14:00 06/14/21 14:01 UNV Sodium Chloride 1,000 ml @ 999 mls/hr 1X ONCE 06/14/21 14:00 06/14/21 15:00 UNV Allergies: Allergies: Allergies Coded Allergies Type Severity Reaction Last Updated Verified Estrogens Allergy Severe LOSS OF VISION 09/15/18 Yes Latex, Natural Rubber Allergy Intermediate RASH 09/15/18 Yes clarithromycin Allergy Intermediate rash 09/15/18 Yes ferrous gluconate Allergy Intermediate 09/15/18 Yes labetalol Allergy Intermediate itching 09/15/18 Yes levofloxacin Allergy Intermediate rash 09/15/18 Yes morphine Allergy Intermediate rash 09/15/18 Yes paroxetine Allergy Intermediate RASH/VOMITING 09/15/18 Yes I S O L A T I O N *CONTACT* Allergy Unknown 09/24/18 Yes amoxicillin Adverse Reaction Intermediate VOMITING 09/15/18 Yes clavulanic acid Adverse Reaction Intermediate VOMITING 09/15/18 Yes quinine Adverse Reaction Intermediate diarrhea 09/15/18 Yes Physical Exam: PE: Constitutional: Well developed, well nourished, MILD distress, non-toxic appearance. [] HENT: Normocephalic, atraumatic, bilateral external ears normal, oropharynx moist, no oral exudates, nose normal. [] Eyes: PERRLA, EOMI, conjunctiva normal, no discharge. [] Neck: Normal range of motion, no tenderness, supple, no stridor. [] Cardiovascular:Heart rate regular rhythm, no murmur [] Lungs & Thorax: Bilateral breath sounds clear to auscultation [] Abdomen: Bowel sounds normal, soft, no tenderness, no masses, no pulsatile masses. [] Skin: Warm, dry, no erythema, no rash. [] Back: No tenderness, no CVA tenderness. [] Extremities: Right upper arm PICC line is in place, no erythema or pain noted at the insertion site Neurologic: Alert and oriented X 3, normal motor function, normal sensory function, no focal deficits noted. [] Psychologic: Affect normal, judgement normal, mood ANXIOUS. [] Current Patient Data: Labs: Laboratory Tests Test 06/14/21 14:00 06/14/21 14:10 06/14/21 15:50 Urine Collection Type Unknown Urine Color (Auto) Colorless Urine Turbidity Clear Urine pH (Auto) 5.0 Urine Specific [place] 1.007 Urine Protein (Auto) Negative mg/dL Urine Glucose (Auto)(UA) Negative mg/dL Urine Ketones (Auto) Negative mg/dL Urine Blood (Auto) Negative Urine Nitrite Negative Urine Bilirubin (Auto) Negative Urine Urobilinogen (Auto) Normal mg/dL Urine Leukocyte Esterase (Auto) Negative Urine RBC 0 /HPF Urine WBC 0 /HPF Urine Bacteria 0 /HPF White Blood Count 5.0 x10^3/uL Red Blood Count 4.16 x10^6/uL Hemoglobin 12.7 g/dL Hematocrit 37.2 % Mean Corpuscular Volume 90 fL Mean Corpuscular Hemoglobin 31 pg Mean Corpuscular Hemoglobin Concent 34 g/dL Red Cell Distribution Width 14.6 % Platelet Count 179 x10^3/uL Neutrophils (%) (Auto) 63 % Lymphocytes (%) (Auto) 25 % Monocytes (%) (Auto) 9 % Eosinophils (%) (Auto) 2 % Basophils (%) (Auto) 1 % Neutrophils # (Auto) 3.1 x10^3/uL Lymphocytes # (Auto) 1.2 x10^3/uL Monocytes # (Auto) 0.5 x10^3/uL Eosinophils # (Auto) 0.1 x10^3/uL Basophils # (Auto) 0.0 x10^3/uL Lactic Acid Level 1.6 mmol/L Sodium Level 140 mmol/L Potassium Level 4.0 mmol/L Chloride Level 106 mmol/L Carbon Dioxide Level 27 mmol/L Anion Gap 7 Blood Urea Nitrogen 13 mg/dL Creatinine 0.8 mg/dL Estimated GFR (Cockcroft-Gault) 73.2 BUN/Creatinine Ratio 16 Glucose Level 81 mg/dL Calcium Level 8.5 mg/dL Total Bilirubin 0.6 mg/dL Aspartate Amino Transf (AST/SGOT) 21 U/L Alanine Aminotransferase (ALT/SGPT) 20 U/L Alkaline Phosphatase 56 U/L Total Protein 6.5 g/dL Albumin 3.3 g/dL Albumin/Globulin Ratio 1.0 Procalcitonin < 0.10 ng/mL Current Medications Medications (Trade) Dose Ordered Sig/Leatha Route PRN Reason Start Time Stop Time Status Last Admin Dose Admin Sodium Chloride 1,000 ml @ 999 mls/hr 1X ONCE IV 06/14/21 14:30 06/14/21 15:30 DC 06/14/21 14:22 Fentanyl Citrate (Fentanyl 2ml Vial) 50 mcg 1X ONCE IVP 06/14/21 14:30 06/14/21 14:31 DC 06/14/21 14:23 Ondansetron HCl (Zofran) 4 mg 1X ONCE IVP 06/14/21 14:30 06/14/21 14:31 DC 06/14/21 14:30 Hydromorphone HCl (Dilaudid) 1 mg 1X ONCE IVP 06/14/21 16:00 06/14/21 16:01 DC 06/14/21 16:04 Diphenhydramine HCl (Benadryl) 50 mg 1X ONCE PO 06/14/21 16:00 06/14/21 16:01 DC 06/14/21 16:04 Vital Signs: Vital Signs Date Time Temp Pulse Resp B/P (MAP) Pulse Ox O2 Delivery O2 Flow Rate FiO2 06/14/21 18:06 92 20 97/47 (64) 96 Room Air 06/14/21 17:10 88 20 126/74 (91) 98 Room Air 06/14/21 16:06 88 20 9/55 (40) 98 Room Air 06/14/21 14:23 20 Room Air 06/14/21 13:33 98.2 88 18 114/63 (80) 97 Room Air 98.2 Vital Signs Date Time Temp Pulse Resp B/P (MAP) Pulse Ox O2 Delivery O2 Flow Rate FiO2 06/14/21 13:33 98.2 88 18 114/63 (80) 97 Room Air 98.2 EKG: EKG: [] Radiology/Procedures: Radiology/Procedures: REASON: BODY ACHES, PROCEDURE: CHEST AP ONLY XR CHEST 1V History: Reason: BODY ACHES, / Spl. Instructions: / History: Comparison: None. Findings: Elevation the right hemidiaphragm. No pleural effusion. No pneumothorax. Right PICC with tip overlying the mid SVC. Right shoulder arthroplasty. Impression: 1. No acute cardiopulmonary process. Electronically signed by: Carlos Eduardo Miles DO (06/14/2021 2:58 PM) [facility] [] Course & Med Decision Making: Course & Med Decision Making Pertinent Labs and Imaging studies reviewed. (See chart for details) [address] Garcia who is partners with Dr. Good and conferred with him regarding this patient, he advised that if the patient's labs are completely normal that I should advise the patient to follow-up with Dr. Good in the office tomorrow advice regarding the plan of care. Evaluation and management of your body pain. Continue to wait procalcitonin level. 1814 reviewed radiological and laboratory results with patient did inform her there was no acute findings found on her labs or chest x-ray, I did relay the information to Dr. Garcia had told me regarding her follow-up with Dr. Good, she is agreeable to the plan of care following up tomorrow with Dr. Good in the office but she will need to call in the a.m. to get a late appointment. I did speak to patient she states she is unable to come up to [place] tomorrow due to transportation issues but will call Dr. Good's office [place] Disclaimer: Awais Disclaimer: This electronic medical record was generated, in whole or in part, using a voice recognition dictation system. Departure Departure Impression: Primary Impression: Body aches Disposition: 01 HOME / SELF CARE / HOMELESS Condition: STABLE Referrals: WILLIAM QUACH MD (PCP) Additional Instructions: Continue your home medications as previously prescribed by other providers Follow-up tomorrow either in person or by phone with Dr. Good for further management of your abdominal pain Return to the emergency department or follow-up with your primary care physician should you have increased abdominal pain, develop a fever, or are unable to keep any by mouth fluids down. JOVITA WILSON APRN Jun 14, 2021 14:07
[2021-06-14 14:21] LABS: BASO % 1 % (0-3); EOS # 0.1 x10^3/uL (0.0-0.7); EOS % 2 % (0-3); HEMATOCRIT 37.2 % (36.0-47.0); HEMOGLOBIN 12.7 g/dL (12.0-15.5); LYMPH # 1.2 x10^3/uL (1.0-4.8); LYMPH % 25 % (24-48); MEAN CORPUSCULAR HEMOGLOBIN 31 pg (25-35); MEAN CORPUSCULAR HGB CONC 34 g/dL (31-37); MEAN CORPUSCULAR VOLUME 90 fL (79-100); MONO # 0.5 x10^3/uL (0.0-1.1); MONO % 9 % (0-9); NEUT # 3.1 x10^3/uL (1.8-7.7); NEUT % 63 % (31-73); PLATELET COUNT 179 x10^3/uL (140-400); RED BLOOD COUNT 4.16 x10^6/uL (3.50-5.40); RED CELL DISTRIBUTION WIDTH 14.6 % (11.5-14.5)
[2021-06-14] MEDS ORDERED: ONDANSETRON PF 4 MG/2 ML VIAL. IVP ONE (14:30)
[2021-06-14] MEDS ORDERED: fentaNYL PF VIAL 100 MCG/2 ML VIAL IVP ONE (14:30)
[2021-06-14] MEDS ORDERED: IV NORMAL SALINE 1000ML BAG 1,000 ML IV ONE (14:30)
[2021-06-14 14:32] LABS: BACTERIA,URINE 0 /HPF (0-FEW); RBC,URINE 0 /HPF (0-2); WBC,URINE 0 /HPF (0-4)
--- NOTE | 2021-06-14 15:01 | RAD ---
XR CHEST 1V History: Reason: BODY ACHES, / Spl. Instructions: / History: Comparison: None. Findings: Elevation the right hemidiaphragm. No pleural effusion. No pneumothorax. Right PICC with tip overlyin g the mid SVC. Right shoulder arthroplasty. Impression: 1. No acute cardiopulmonary process. Electronically signed by: Carlos Eduardo Miles DO (06/14/2021 2:58 PM) [facility] [place]
[2021-06-14] MEDS ORDERED: HYDROmorphone 2 MG/ML INJ. IVP ONE (16:00)
[2021-06-14] MEDS ORDERED: diphenhydrAMINE HCL 25 MG CAPSULE PO ONE (16:00)
[2021-06-14 16:12] LABS: CALCIUM 8.5 mg/dL (8.5-10.1); CREATININE 0.8 mg/dL (0.6-1.0); GFR 73.2
[2021-06-14 16:18] LABS: ALBUMIN 3.3 g/dL (3.4-5.0); TOTAL BILIRUBIN 0.6 mg/dL (0.2-1.0); TOTAL PROTEIN 6.5 g/dL (6.4-8.2)
[2021-06-14 18:06] VITALS: BP 97/47
== END 2021-06-14 19:14 | disposition home or self-care (01) ==
LOC: ER 13:12
DX: M79.10 Myalgia, unspecified site (principal); R68.83 Chills (without fever); F41.9 Anxiety disorder, unspecified; M19.90 Unspecified osteoarthritis, unspecified site; I25.10 Atherosclerotic heart disease of native coronary artery without angina pectoris; F32.9 Major depressive disorder, single episode, unspecified; K21.9 Gastro-esophageal reflux disease without esophagitis; E78.00 Pure hypercholesterolemia, unspecified; I10 Essential (primary) hypertension; Z87.440 Personal history of urinary (tract) infections; Z91.040 Latex allergy status; Z88.5 Allergy status to narcotic agent; Z88.1 Allergy status to other antibiotic agents; Z88.8 Allergy status to other drugs, medicaments and biological substances
CPT/HCPCS: 36415; 71045; 80053; 81001; 83605; 84145; 85025; 87040; 96361; 96374; 96375; 99285; J1170; J2405; J3010; J7030; Q0163